=== PATIENT | male | born 1965 | race Caucasian/White ===

== ENCOUNTER 2017-08-21 10:51 | Day surgery (SDC) | payer OTHER, SELFPAY ==
[2017-08-21] VITALS (7 sets, daily range): BP systolic 117–149; BP diastolic 63–76; PULSE 77–88; RESP 16; TEMP 36.3–37.1; O2SAT 93–98; BMI 39.8
--- NOTE | 2017-08-21 10:56 | EKG12_ITS ---
Test Reason : PRE OP Blood Pressure : / mmHG Vent. Rate : 084 BPM Atrial Rate : 084 BPM P-R Int : 136 ms QRS Dur : 094 ms QT Int : 390 ms P-R-T Axes : 042 -01 015 degrees QTc Int : 460 ms Sinus rhythm with Premature atrial complexes Poor R wave progression Confirmed by MAKENZIE POLK, EMILY ([id number]), restaurant expeditor SHANELLE VALDIVIA ([id number]) on 08/23/2017 1:46:08 PM Referred By: Geronimo Townsend Confirmed By:EMILY BANEGAS MD
[2017-08-21 11:18] LABS: Hematocrit 44.6 % (40-54); Hemoglobin 15.3 g/dl (13.0-16.5); Mean Corp Hgb Conc 34.3 g/gl (32-36); Mean Corpuscular Hgb 30.8 pg (27.0-32.0); Mean Corpuscular Volume 89.9 fL (80-94); Mean Platelet Vol. 10.1 fl (6.2-12.0); Platelet Count 184 K/mm3 (150-450); RBC Distribution Width CV 12.3 % (11.6-14.6); RBC Distribution Width SD 39.6 fl (35.1-43.9); Red Blood Count 4.96 M/mm3 (4.6-6.2); Scan Indicated on CBC? Y/N NO
[2017-08-21 11:30] LABS: Anion Gap 9 (5-15); BUN 10 mg/dL (7-18); BUN/Creat Ratio 10.7 RATIO (10-20); Calcium,Total 8.7 mg/dL (8.5-10.1); Chloride 106 mmol/L (98-107); Creatinine, Serum 0.94 mg/dL (0.70-1.30); EST Glomerular Filtration Rate 90 mL/min (>60); Est Glom Filt Rate - Afr Amer 109 mL/min (>60); Glucose 96 mg/dL (74-106); Potassium 3.8 mmol/L (3.5-5.1); Sodium Level 139 mmol/L (136-145)
--- NOTE | 2017-08-21 12:25 | GALL_PTH ---
PATIENT: MARTÍNEZ VALDIVIA LOC: [facility] [place] U#:[id number] AGE/SX: 52/M ROOM: RE08/21/[address]: Dr. Geronimo Townsend MD : [id number] BED: DIS: 08/21/2017 SPEC #: [id number] RECD: 08/21/17 17:31 STATUS: PATRIC UMBERTO #: [id number] RICKEY: 08/21/17 12:[address]: Geronimo Townsend DEPT: SURGICAL PATHOLOGY RECD BY: Manish Baldwin ENTERED: 08/22/17 11:51 SP TYPE: KG BLOOM DR: Geronimo Reyes Tissues: Gallbladder, NOS Procedures: Surgery Specimen Level III HEADER OPERATION: Laparoscopic cholecystectomy with IOC PRE-OP DIAGNOSIS: Cholelithiasis, biliary colic TISSUE SUBMITTED: Gallbladder MICROSCOPIC DIAGNOSIS Gallbladder, cholecystectomy: Chronic cholecystitis and cholelithiasis. AM:debra 08/23/17 MICROSCOPIC DESCRIPTION Slides are reviewed. GROSS DESCRIPTION Received is one container labeled with the patient's name and designated gallbladder. The specimen consists of a gallbladder measuring 10 cm in length and 3 cm in diameter. The external surface is pink-caldwell, smooth and glistening for the most part. Focally it is granular, hemorrhagic and contains cautery artifact. The gallbladder contains green-yellow mucoid bile and one black, ovoid stone measuring 1.5 cm in greatest dimension. The mucosa is bile-stained and without any mass lesions. The gallbladder wall measures up to 0.2 cm in thickness. Nurse Instructor sections from the gallbladder and the cystic duct are submitted in one cassette. / SJ:rg 08/22/17 TC:3 CPT: 20536
[2017-08-21] MEDS: Bupivacaine Mpf 0.5% 30 ML VIAL (12:53)
[2017-08-21] MEDS: Cefazolin 2 GM in 0.9% Normal Saline 100 ML IV (13:35)
--- NOTE | 2017-08-21 13:57 | RAD_ITS ---
STUDY: INTRAOPERATIVE CHOLANGIOGRAM. REASON FOR EXAM: Male, 52 years old. Laparoscopic cholecystectomy. FLUOROSCOPY TIME (if supplied): (10.3 seconds) minutes/seconds TECHNIQUE: An intraoperative cholangiogram was performed by the surgeon. Imaging was submitted. COMPARISON: None. FINDINGS: The visualized intrahepatic biliary ducts are unremarkable. The common bile duct is not dilated. No intraluminal filling defect is seen. There is free flow of contrast into the duodenum. RAD/Cholangiogram/ O R,Initial IMPRESSION: Unremarkable intraoperative cholangiogram. Electronically Signed: Garrett Hollingsworth MD at 15:52 EDT Tel [phone], Service support ,
--- NOTE | 2017-08-21 14:55 | PCM.DC.GB ---
Discharge Diet: Light diet - advance as tolerated Discharge Activity: May Not Drive - for 2-3 days or while taking narcotic pain medications., - - Do not drive, work heavy equipment or sign legal documents for 24 hours. May shower in (days): 1 - with the bandage in place. Additional Activity Instructions:: Pain medication may cause nausea. You should typically eat light foods as you take your pain medications. Pain medication may also cause constipation. If this is a problem for you, please discuss with your doctor. Call your doctor if your incision/area has: Continuous Slow Oozing, Sudden Increased Bleeding, Increased Pain/ Swelling, Increased Redness, Foul Smelling Discharge Call your doctor if you observe: Fever of 101 or Higher Suture Line Care: Avoid Pulling/Pushing, Avoid Pinching/Bending Additional Dressing/Incision Instructions:: Leave operative bandaids on for 2 days. When you remove dressing, leave Steri-Strips on until your follow-up appointment, or until the Steri-Strips fall off on their own. Allergies/Adverse Reactions: Allergies No Known Allergies Allergy (Verified 08/20/17 09:15) Medications to take at Discharge Aspirin [Aspirin, Baby] 81 mg PO DAILY@0800 06/24/15 Atorvastatin Calcium [Lipitor] 20 mg PO DAILY 06/24/15 losartan 25 mg tablet 25 mg PO QDAY 08/16/17 Omeprazole [Prilosec] 20 mg PO PRN PRN 08/20/17 Oxycodone [Oxyir] 5 mg PO Q4H PRN PRN 7 Days #14 tab 08/21/17 The following prescriptions were given: Oxycodone [Oxyir] 5 mg PO Q4H PRN PRN 7 Days #14 tab PRN Reason: Pain Primary Care Physician: Geronimo Reyes [Primary Care Provider] - Please Follow Up With: Geronimo Townsend MD - Please call [phone] to schedule an appointment. When: 7 days after your surgery
--- NOTE | 2017-08-21 14:57 | OP.PCM_ITS ---
Report of Operation Date of Procedure: 08/21/17 Pre-Operative Diagnosis: SYMPTOMATIC CHOLELITHIASIS Post-Operative Diagnosis: SYMPTOMATIC CHOLELITHIASIS, NORMAL IOC Surgery/Procedure Performed:: LAPAROSCOPIC CHOLECYSTECTOMY WITH INTRAOPERATIVE CHOLANGIOGRAM Description of Surgical Findings:: DUCT ENTERS FROM LEFT control equipment electrician: None control equipment electrician: Oksana Henson Type of Anesthesia:: General Anesthesiologist: Fermin Castañeda - ASA3 Specimen's removed: GALLBLADDER Estimated Blood Loss (mL): 25 Fluids Replaced: 1300 Description of Procedure: The patient was brought to the operating suite. Sign in was performed verifying patient, site, position, SCIP antibiotic prophylaxis- 3 gm of Ancef and DVT prophylaxis with SCDs. Following induction of general anesthetic. The patient?s abdomen was prepped and draped in the usual fashion. Timeout was performed verifying patient, site , position. Local anesthetic was injected below the umbilicus. Incision made and dissection carried down to the umbilical root fascia. 2 stay sutures were placed. Incision made in the fascia, the peritoneum entered under direct visualization. A 10 mm Sifuentes trocar was inserted and secured with the stay sutures. Pneumoperitoneum to 15 mmHg was insufflated. Visual inspection revealed adhesions to the gallbladder, but otherwise a normal-appearing gallbladder and normal. Visualized intra-abdominal structures. 3 right upper quadrant 5 ports were placed in the standard position. The gallbladder was grasped retracted upward and outward. Dissection was carried out in Calot?s triangle. When a critical view of the neck of the gallbladder funneling of the cystic duct with no signs of aberrant ductal structures were seen, a clip was placed on the neck of the gallbladder cystic duct junction. A partial ductotomy was made. A Cholangiocath was inserted into the duct and secured with a clip. Intraoperative cholangiogram was performed demonstrating filling of the cystic duct filling the common bile duct and emptying into the duodenum without signs of obstruction area and the clip and catheter were removed. 2 clips placed on the cystic duct and the cystic duct divided. Dissection was continued until the cystic artery was clearly dissected and identified. The artery was then doubly clipped proximally singly clipped distally and divided. The gallbladder was then dissected free from the gallbladder fossa using electrocautery. The gallbladder was placed in an Endobag and removed through the umbilical port site. An 0 PDS etceop-qv-[id number] suture was placed around the umbilical port site defect. Pneumoperitoneum was reestablished. The gallbladder fossa was checked for hemostasis. With good hemostasis, the area was irrigated and aspirated to clear. 5 ports were removed under direct visualization with no signs of bleeding. Pneumoperitoneum was released. The Sifuentes trocar was removed. The umbilical fascial suture was secured area did skin was closed with interrupted 4 -0 Monocryl subcuticular sutures. Steri-Strips and bandages were applied. The patient was brought to recovery room in stable condition. - Admit VTE Documentation VTE Present on Admission: No VTE Mechan Device Prophylaxis: SCD's VTE Pharm Prophylaxis ordered?: No
== END 2017-08-21 17:43 | disposition home or self-care (01) ==
LOC: SDC 10:52 → AC 10:53
PROVIDERS: Family Provider Nurse Practitioner Family; PCP Nurse Practitioner Family; Visit Provider Surgery
PROC: (CPT 47610; principal; 2017-08-21 12:05)
DX: K80.10 Calculus of gallbladder with chronic cholecystitis without obstruction (principal); E78.00 Pure hypercholesterolemia, unspecified; I10 Essential (primary) hypertension; K21.9 Gastro-esophageal reflux disease without esophagitis; K58.9 Irritable bowel syndrome, unspecified; Z87.19 Personal history of other diseases of the digestive system; Z86.79 Personal history of other diseases of the circulatory system; Z87.891 Personal history of nicotine dependence; Z79.82 Long term (current) use of aspirin; Z79.899 Other long term (current) drug therapy
CPT/HCPCS: 47563; 74300; 76000; 80048; 85027; 88304; 93005; J7120; J2405

== ENCOUNTER → 2022-10-17 | Outpatient (CLI) | payer SELFPAY ==
--- NOTE | 2022-10-17 07:18 | CT_ITS ---
STUDY: CT CHEST WITHOUT CONTRAST REASON FOR EXAM: Male, 57 years old. HTN RADIATION DOSAGE (If Supplied By Facility): CTDIvol = ( 12.19 ) mGy, DLP = ( 195.04 ) mGycm TECHNIQUE: Transaxial imaging was performed without the administration of intravenous contrast material. Cardiac over read examination. Individualized dose optimization techniques were used for this CT. COMPARISON: No relevant priors. FINDINGS: CHEST The lungs are normal. There is no demonstrated pleural abnormality. There are calcifications of the coronary arteries. There are multiple small lymph nodes within the mediastinum, which are normal in size and morphology most compatible with reactive lymph hyperplasia. Normal hilar regions. Normal unenhanced pulmonary arteries. Normal aorta arch and descending thoracic aorta. There are degenerative changes of the thoracic spine. Diffuse fatty infiltration of the liver. Small hiatal hernia. CT/Limited Chest CT Cardiac Only IMPRESSION: Coronary artery calcification. Diffuse fatty infiltration of the liver. Electronically Signed: Garrett Hollingsworth MD at 8:40 EDT ,
--- NOTE | 2022-10-17 13:16 | CA.SCORE ---
Calcium Scoring Date of Study:: 10/17/22 Indications Indications: Family history and hypertension Coronary Calcium Scoring: High-resolution Computed Tomographic imaging of the chest was performed on [10/17/22 ], with particular attention paid to the coronary arteries. Images from the examination were analyzed for the presence and extent of coronary artery calcification , using coronary calcium quantification software. The patient tolerated the procedure well and there were no complications. The results of the coronary calcification analysis are provided below. Findings Coronary Artery Left Main (LM): 203 Left Anterior Descending (LAD): 134 Left Circumflex (LCX): 61 Right Coronary Artery (RCA): 4.77 Total Agatston Score: 402.77 Percentile Rankin-90% Calcium Scoring Interpretation: Different methods to categorize the overall amount of coronary plaque. Overall amount CAC SIS Visual of coronary plaque P1 Mild -100 <2 1-2 vessels with mild amount of plaque P2 Moderate 101-300 3-4 1-2 vessels with moderate amount, 3 vessels with mild amount of plaque P3 Severe 301-999 5-7 3 vessels with moderate amount, 1 vessel with severe amount of plaque P4 Extensive >1000 >8 2-3 vessels with severe amount of plaque Calcium Score: Severe: 3 vessels w/moderate amount, 1 vessel w/severe amt of plaque Conclusion: Probably moderate amount of atherosclerotic plaquing.
== END | disposition home or self-care (01) ==
LOC: CT 07:15
PROVIDERS: PCP Nurse Practitioner Family; Referring Provider Internal Medicine Cardiovascular Disease; Visit Provider Internal Medicine Cardiovascular Disease
DX: E78.00 Pure hypercholesterolemia, unspecified (principal)
CPT/HCPCS: 75571; 76380

== ENCOUNTER → 2022-11-12 | Outpatient (CLI) | payer OTHER, SELFPAY ==
--- NOTE | 2022-11-12 10:09 | STRESSREP ---
Stress Test Report Pharmacologic myocardial perfusion stress test. 57-year-old man with a history of elevated calcium score Resting EKG demonstrates sinus rhythm with a rate of 83 bpm. Resting blood pressure is 152/84 mmHg. 0.4 mg of regadenoson was infused per usual protocol followed by rapid intravenous saline flush injection. Continuous EKG monitoring was performed. The maximum heart rate was 107 bpm which was 65% of max impacted heart rate the maximum workload was 1 metabolic equivalent. At rest there were no ST or T wave changes noted to suggest ischemia and at peak infusion nonspecific ST changes were noted which did not meet the criteria for ischemia. No clinical angina is noted. The final blood pressure was 148/80 mmHg. Myocardial perfusion protocol. 14.7 mCi of technetium 99m sestamibi was injected at rest. 0.4 mg of regadenoson was infused per usual protocol. At peak infusion 44.8 mCi of technetium 99m sestamibi was injected stress images were obtained stress and rest images were reconstructed and compared in the short axis vertical long and horizontal long axis. Gated images were also obtained. Perfusion SPECT analysis: Review of the stress images demonstrate normal uptake of tracer noted in all areas of the myocardium. The resting images similar demonstrated normal uptake of tracer noted in all areas of the myocardium. No areas of reversibility are noted to suggest ischemia and no previous infarct is noted. Gated SPECT analysis: The gated ejection fraction is 70%. Conclusion: Normal pharmacologic myocardial perfusion stress test. Preserved ejection fraction.
== END | disposition home or self-care (01) ==
LOC: CVS 06:11
PROVIDERS: PCP Nurse Practitioner Family; Referring Provider Internal Medicine Cardiovascular Disease; Visit Provider Internal Medicine Cardiovascular Disease
DX: R93.1 Abnormal findings on diagnostic imaging of heart and coronary circulation (principal); I47.1 Supraventricular tachycardia; E78.00 Pure hypercholesterolemia, unspecified; I10 Essential (primary) hypertension
CPT/HCPCS: 78452; 93017; A9500; A4216; J2785

== ENCOUNTER 2024-10-08 19:43 | Observation (INO) | payer OTHER, SELFPAY ==
[2024-10-08 19:43] VITALS: BP 164/88; PULSE 97; RESP 18; TEMP 36.8; O2SAT 98; BMI 36.1
--- NOTE | 2024-10-08 19:59 | EX.ED.DYSGE1 ---
HPI <BRETT De Anda - Last Filed: 10/08/24 21:59> History of Present Illness Chief Complaint: Abd Pain Narrative Narrative: 59-year-old male with PMH of HTN, HLD, AAA presents with epigastric pain that started last night. He had a cramping sensation in the epigastric and right upper quadrant last night while working in his garage. He had dinner and then ate some Fritos as a bedtime snack. He went to bed around 10 PM and the epigastric pain woke him up at 12:30 AM with acid reflux. He had a sour taste in his mouth but did not vomit. He has had intermittent abdominal pain throughout the day which was on the left side in the morning but is now again focused on the right upper abdomen. His friend told him that when he had abdominal pain it was an aorta problem and the patient started to become worried because he has a 4.0 cm AAA that was incidentally found on imaging in the past. He had an ultrasound a year ago and it was 4.3 cm and he is due to have another ultrasound. Abdominal surgeries include umbilical hernia repair and cholecystectomy. PFSH <BRETT De Anda - Last Filed: 10/08/24 21:59> [facility] Medical History (Updated 10/08/24 @ 21:45 by BRETT De Anda) Obesity Essential (primary) hypertension GERD (gastroesophageal reflux disease) Premature atrial contractions Hyperlipidemia Supraventricular tachycardia Home Medications ?Medication ?Instructions ?Recorded ?Last Taken ?Type aspirin 81 mg chewable tablet 81 mg PO DAILY@0800 06/24/15 08/20/17 History amlodipine 5 mg tablet 5 mg PO QHS 08/09/20 Unknown History hydrochlorothiazide 12.5 mg tablet 12.5 mg PO DAILY 09/06/22 Unknown History losartan 100 mg tablet 100 mg PO DAILY 09/06/22 Unknown History rosuvastatin 20 mg tablet 20 mg PO QDAY 08/16/23 Unknown History Allergy/AdvReac Type Severity Reaction Status Date / Time No Known Allergies Allergy Verified 10/08/24 19:45 Family History Father , Age 54 of CAD (ID age 49) Myocardial infarction CAD (coronary artery disease), Onset Age: 49 CABG Brother CAD (coronary artery disease), Onset Age: 49 Stented coronary artery Surgical History History of cardiac radiofrequency ablation (RFA) (05/25/16) History of left heart catheterization (06/27/15) Social History Smoking Status: Former smoker how long ago did patient quit smokin alcohol intake: current alcohol intake frequency: a few times a week Alcohol type: beer substance use type: does not use caffeine: Yes Type: carbonated beverages what type of physical activity do you participate in: none seatbelt use: always do you feel safe at home: Yes ROS <BRETT De Anda - Last Filed: 10/08/24 21:59> ROS ED ROS Narrative Constitutional: Negative for fever, chills, malaise. CVS: Negative for pchest pain, syncope. Respiratory: Negative for shortness of breath, cough. GI: Positive for abdominal pain, nausea. Negative for vomiting, diarrhea, constipation, melena, hematochezia. : Negative for dysuria, hematuria or frequency. EXAM <BRETT De Anda - Last Filed: 10/08/24 21:59> Physical Exam Narrative Exam Narrative: CONST: Patient sitting in no acute distress. EYES: Normal inspection. NECK: Normal inspection. RESP: No respiratory distress, CTAB. CVS: Regular rate and rhythm, no murmur, no gallop. ABD: Soft with minimal epigastric tenderness, mildly distended, no guarding or rebound, nondistended, no hepatosplenomegaly. No pulsatile mass. SKIN: Color normal, no rash, warm, dry, intact. EXTREMITIES: Normal appearance, no pedal edema. NEURO: Alert and answering questions appropriately. PSYCH: Normal affect. Const Vital Signs: 10/08/24 19:43 10/08/24 21:14 Temperature 98.3 F Temperature Source Oral Pulse Rate 97 78 Respiratory Rate 18 15 Blood Pressure 164/88 H 140/71 H Blood Pressure Mean 113 94 Pulse Ox 98 97 Oxygen Delivery Method Room Air Room Air <Dr. Vinny Hernandez MD - Last Filed: 10/08/24 21:23> Physical Exam Const Vital Signs: 10/08/24 19:43 10/08/24 21:14 Temperature 98.3 F Temperature Source Oral Pulse Rate 97 78 Respiratory Rate 18 15 Blood Pressure 164/88 H 140/71 H Blood Pressure Mean 113 94 Pulse Ox 98 97 Oxygen Delivery Method Room Air Room Air [facility] <BRETT De Anda - Last Filed: 10/08/24 21:59> [facility] Narrative Medical decision making narrative: 59-year-old male presents with upper abdominal pain and some nausea and acid reflux that started last night. He appears well and nontoxic. Vital signs show hypertension, otherwise normal. He has a normal cardiopulmonary exam. Abdomen is soft with mild epigastric tenderness. No peritoneal signs. Differential includes but not limited to GERD, choledocholithiasis, pancreatitis, aortic dissection felt to be less likely. CT shows mildly dilated and thickened small bowel loops along the central left hemiabdomen concerning for enteritis with superimposed ileus/partial obstruction which may relate to a small umbilical hernia. I do not think he has enteritis as he has no vomiting or diarrhea. He has a history of umbilical hernia repair with mesh by Dr. Townsend. I cannot feel a hernia on exam. I will notify surgery to follow a long and at this point this point he is nonsurgical. I will discuss the case with the hospitalist for admission. I have personally performed a face to face assessment of the patient and have reviewed the [facility] Note. I performed a substantive portion of the visit including all aspects of the following. My chan findings include: History is [59-year-old male with abdominal pain last 2 days. Had 3 bowel movements today. No dysuria. No fever. Known history of a AAA that they are observing. Prior cholecystectomy. Denies any fever. No vomiting. No abdominal trauma. No back pain.] Exam is [well-appearing middle-aged male. Vital signs stable afebrile. H EENT exam pupils round react light. Moist mucous members. Lungs clear. Heart regular rhythm rate about 90 no murmur. Chest wall and ribs nontender. Abdomen soft mildly distended diffusely but only mildly tender. No peritoneal signs. No hernia or mass. No palpable pulsatile mass. No bruising. No right lower quadrant pain. Moving all 4 extremities. Nontender. No edema. Back nontender. Neurologically is awake alert.] Medical Decision Making [59-year-old male with abdominal pain with cramping. Has a known AAA. CAT scan and labs are being obtained. Differential would include AAA rupture, bowel obstruction, appendicitis with I think is less likely. Versus many other etiologies.] Other additions or changes: [None] Lab Data Labs: Laboratory Results - last 24 hr 10/08/24 20:13 Sodium 135 Potassium 3.6 Chloride 99 Carbon Dioxide 21.1 Anion Gap 15 BUN 11 Creatinine 0.85 Estim Creat Clear Calc 123.50 Est GFR (MDRD) Non-Af 101 BUN/Creatinine Ratio 13.2 Glucose 118 H Calcium 9.2 Total Bilirubin 1.39 H AST 27 ALT 26 Alkaline Phosphatase 95 Total Protein 6.8 Albumin 4.2 Globulin 2.6 Albumin/Globulin Ratio 1.6 Lipase 13 Radiography Diagnostic Testing: Clinical Impression(s) from Imaging Studies Abdomen/Pelvis CT 10/08/24 20:25 IMPRESSION: 1. Mildly dilated thickened small bowel loops along the central and left hemiabdomen concerning for infectious/inflammatory enteritis with superimposed ileus/partial obstruction which may relate in part to a small umbilical hernia. See comments above. 2. Abdominal aortic aneurysm measuring up to 3.9 cm. 3. Hepatic steatosis. Reading Location: [facility] <Dr. Vinny Hernandez MD - Last Filed: 10/08/24 21:23> MDM MDM Narrative Medical decision making narrative: I have personally performed a face to face assessment of the patient and have reviewed the [facility] Note. I performed a substantive portion of the visit including all aspects of the following. My chan findings include: History is [59-year-old male with abdominal pain last 2 days. Had 3 bowel movements today. No dysuria. No fever. Known history of a AAA that they are observing. Prior cholecystectomy. Denies any fever. No vomiting. No abdominal trauma. No back pain.] Exam is [well-appearing middle-aged male. Vital signs stable afebrile. H EENT exam pupils round react light. Moist mucous members. Lungs clear. Heart regular rhythm rate about 90 no murmur. Chest wall and ribs nontender. Abdomen soft mildly distended diffusely but only mildly tender. No peritoneal signs. No hernia or mass. No palpable pulsatile mass. No bruising. No right lower quadrant pain. Moving all 4 extremities. Nontender. No edema. Back nontender. Neurologically is awake alert.] Medical Decision Making [59-year-old male with abdominal pain with cramping. Has a known AAA. CAT scan and labs are being obtained. Differential would include AAA rupture, bowel obstruction, appendicitis with I think is less likely. Versus many other etiologies.] Other additions or changes: [None] History & Record Review Discussion w/independent historian: Patient Additional record(s) reviewed:: Prior inpatient record, Prior outpatient record, Prior ED visit and Prior labs Lab Data Attestation: I reviewed the patient's lab results. Lab results narrative: Chemistries show gap 15. Normal BUN and creatinine. Glucose 118. Liver enzymes unremarkable. Total bilirubin 1.39. Lipase normal at 13. Labs: Laboratory Results - last 24 hr 10/08/24 20:13 Sodium 135 Potassium 3.6 Chloride 99 Carbon Dioxide 21.1 Anion Gap 15 BUN 11 Creatinine 0.85 Estim Creat Clear Calc 123.50 Est GFR (MDRD) Non-Af 101 BUN/Creatinine Ratio 13.2 Glucose 118 H Calcium 9.2 Total Bilirubin 1.39 H AST 27 ALT 26 Alkaline Phosphatase 95 Total Protein 6.8 Albumin 4.2 Globulin 2.6 Albumin/Globulin Ratio 1.6 Lipase 13 Radiography Diagnostic Testing: Clinical Impression(s) from Imaging Studies Abdomen/Pelvis CT 10/08/24 20:25 IMPRESSION: 1. Mildly dilated thickened small bowel loops along the central and left hemiabdomen concerning for infectious/inflammatory enteritis with superimposed ileus/partial obstruction which may relate in part to a small umbilical hernia. See comments above. 2. Abdominal aortic aneurysm measuring up to 3.9 cm. 3. Hepatic steatosis. Reading Location: [facility] Discharge Plan Dx/Rx/DC Orders Clinical Impression: Partial small bowel obstruction, Abdominal pain Disposition Disposition: Acute Care Hospital [facility]
--- NOTE | 2024-10-08 20:25 | CT_ITS ---
PROCEDURE: ABDOMEN/PELVIS W IV CONT ONLY 10/08/2024 REASON FOR EXAM: Pain TECHNIQUE: Abdomen and pelvis CT with intravenous contrast. Coronal and Sagittal reconstruction series were provided. One or more dose reduction techniques were used (e.g., Automated exposure control, adjustment of the mA and/or kV according to patient size, use of iterative reconstruction technique. COMPARISON: None FINDINGS: Lung bases are clear. Hepatic steatosis. Spleen, pancreas and adrenal glands are intact. Gallbladder is not visualized. No significant biliary ductal dilation. Kidneys enhance symmetrically. No suspicious renal mass, calculi or hydronephrosis. Urinary bladder is intact. Several dilated, moderately thickened small bowel loops with prominence of the supplying vasa recta along the central and left hemiabdomen concerning for infectious/inflammatory enteritis. Superimposed ileus/partial obstruction suspected. A couple of these bowel loops appear tethered to a small umbilical hernia which contains a tiny amount of fluid. Gas and stool throughout the colon. No pelvic free fluid. No free air or pneumatosis. Abdominal aortic aneurysm measuring up to 3.9 cm. No suspicious adenopathy. Small bilateral fat containing inguinal hernias. No acute osseous abnormality. Degenerative changes of the spine. Mild dextroscoliosis. CT/Abdomen/Pelvis W IV Cont ONLY IMPRESSION: 1. Mildly dilated thickened small bowel loops along the central and left hemiab domen concerning for infectious/inflammatory enteritis with superimposed ileus/partial obstruction which may relate in part to a small umbilical hernia. See comments above. 2. Abdominal aortic aneurysm measuring up to 3.9 cm. 3. Hepatic steatosis. Reading Location: [facility]
[2024-10-08 20:27] LABS: Absolute Lymphocyte Count 1.53 X10^3/uL (0.83-4.51); Absolute Neutrophil Count 6.6 X10^3/uL (2.0-7.7); Basophil# 0.04 X10^3/uL; Basophil% 0.4 % (0-1); Eosinophil# 0.24 X10^3/uL; Eosinophils% 2.6 % (0-5); Hematocrit 45.7 % (40-54); Hemoglobin 15.8 g/dL (13.0-16.5); Lymphocyte # 1.53 X10^3/ul (0.83-4.51); Lymphocyte % 16.4 % (19-41); Mean Corp Hgb Conc 34.6 g/dL (32-36); Mean Corpuscular Hgb 30.8 pg (27.0-32.0); Mean Corpuscular Volume 89.1 fL (80-94); Mean Platelet Vol. 9.8 fl (6.2-12.0); Monocyte# 0.94 X10^3/uL; Monocyte% 10.1 % (0-10); NRBC Flagged by Analyzer 0 % (0-5); Neutrophil # 6.55 X10^3/uL (2.7-7.7); Neutrophil % 70.1 % (47-70); POSITIVE COUNT YES; Platelet Count 165 K/mm3 (150-450); RBC Distribution Width CV 12.2 % (11.6-14.6); RBC Distribution Width SD 40.2 fl (35.1-43.9); Red Blood Count 5.13 M/mm3 (4.6-6.2); White Blood Count 9.3 K/mm3 (4.4-11.0)
[2024-10-08] MEDS: Famotidine 200 MG/20 ML MDV 20 MG in 0.9% Normal Saline (Pres. free 8 ML 300 MG IV (20:32)
[2024-10-08 21:07] LABS: Lipase 13 U/L (13-75)
[2024-10-08 21:09] LABS: ALB/GLOB Ratio 1.6 RATIO (0.9-2.4); AST(SGOT) 27 U/L (<=37); Alanine Aminotransfer ALT/SGPT 26 U/L (<=46); Albumin, Serum 4.2 g/dL (3.5-5.0); Alkaline Phosphatase 95 U/L (40-129); Anion Gap 15 (5-15); BUN 11 mg/dL (4-19); BUN/Creat Ratio 13.2 RATIO (10-20); Calcium,Total 9.2 mg/dL (7.6-11.0); Carbon Dioxide 21.1 mmol/L (21.0-32.0); Chloride 99 mmol/L (98-108); Creatinine, Serum 0.85 mg/dL (0.70-1.20); EST Glomerular Filtration Rate 101 (>60); Globulin 2.6 g/dL (2.2-4.2); Glucose 118 mg/dL (70-99); Potassium 3.6 mmol/L (3.3-5.1); Protein, Total 6.8 g/dL (5.9-8.4); Sodium Level 135 mmol/L (133-145); Total Bilirubin 1.39 mg/dL (0.00-1.30)
[2024-10-08 21:14] VITALS: BP 140/71; PULSE 78; RESP 15; O2SAT 97
--- NOTE | 2024-10-08 22:04 | HP.PCM.HOS_ITS ---
HPI - General General Date of Admission: 10/08/24 Date of Service: 10/08/24 Chief Complaint: Abdominal pain, nausea without emesis. HPI Narrative The patient is a 59 y/o M w/ PMHx: Obesity, HTN, HLD, Hx SVT s/p RFA, AAA (4.3 cm on most recent US, current presentation with CT measurement up to 3.9 cm), Former tobacco use, GERD who presents to the [facility] ED on 10/08/24 with history of onset epigastric discomfort and cramping as well as into the right upper quadrant starting the evening prior while he was working in his garage however he was able to eat dinner as well as some snacks and went to bed at approximately 10 PM unfortunately awakening at 1230 with severe reflux and a sour taste in his mouth with nausea but no emesis with ongoing intermittent abdominal pain in the same region throughout the day however it seems to have worsened and has become more prominent in the right upper abdomen and given his history of AAA to be cautious presented to the ED for evaluation. In the ED he notes the discomfort is very focal and primarily more cramping-like sensation which is now ramping up and currently 5-6 out of 10 in severity. He does report chronic issues with some constipation and loose stools and these bowel patterns are unchanged with last bowel movement earlier this morning. He does report passing a little bit of flatus approximately 15 minutes prior to my evaluation but it was not marked. He states he feels like he needs to pass a lot of gas. In the ED work-up included T90.3, heart rate 97, BP 164/88, respiratory rate 18, 98% on room air with most recent repeat vitals with heart rate 78, BP 140/71, respiratory rate 15, 97% on room air, CBC pending upon requested evaluation of patient, CMP not marked appearing aside glucose 118, T. bili 1.39 otherwise normal hepatic profile, CT abdomen and pelvis with mildly dilated thickened small bowel loops along the central left hemiabdomen concerning for infectious/inflammatory enteritis with superimposed ileus/partial obstruction passive related to a small umbilical hernia, abdominal aortic aneurysm measuring up to 3.9 cm, hepatic steatosis. In the ED patient ministered IV famotidine. ED discussed case with general surgeon on-call Dr. Medina. [facility] Medical History AAA (abdominal aortic aneurysm) Obesity Essential (primary) hypertension GERD (gastroesophageal reflux disease) Premature atrial contractions Hyperlipidemia Supraventricular tachycardia Home Medications ?Medication ?Instructions ?Recorded ?Last Taken ?Type aspirin 81 mg chewable tablet 81 mg PO DAILY@0800 06/0608/20/17 History amlodipine 5 mg tablet 5 mg PO QHS 08/09/20 Unknown History hydrochlorothiazide 12.5 mg tablet 12.5 mg PO DAILY Unknown History losartan 100 mg tablet 100 mg PO DAILY 09/06/22 Unk nown History rosuvastatin 20 mg tablet 20 mg PO QDAY 08/16/23 Unkno wn History Allergy/AdvReac Type Severity Reaction Status Date / Time No Known Allergies Allergy Verified 10/08/24 19:45 Family History (Updated 10/08/24 @ 22:[address] Ro Hernandez MD) Father , Age 54 of CAD ([place] age 49) Myocardial infarction CAD (coronary artery disease), Onset Age: 49 CABG Brother CAD (coronary artery disease), Onset Age: 49 Stented coronary artery Mother Alzheimer's dementia Surgical History History of cholecystectomy History of umbilical hernia repair History of cardiac radiofrequency ablation (RFA) (05/25/16) History of left heart catheterization (06/27/15) Social History (Updated 10/08/24 @ 22:[address] Ro Hernandez MD) household members: none Smoking Status: Former smoker how long ago did patient quit smokin alcohol intake: current alcohol intake frequency: a few times a week Alcohol type: beer substance use type: does not use caffeine: Yes Type: carbonated beverages what type of physical activity do you participate in: none seatbelt use: always do you feel safe at home: Yes ROS ROS Narrative Admission Review of Systems: CONSTITUTIONAL: No weight loss, fever, chills, + weakness or fatigue. HEENT: Eyes: No visual loss, blurred vision, double vision or yellow sclerae. Ears, Nose, Throat: No hearing loss, sneezing, congestion, runny nose or sore throat. SKIN: No rash or itching, lesions, wounds. CARDIOVASCULAR: No chest pain, chest pressure or chest discomfort, palpitations, edema, orthopnea, syncopal events. RESPIRATORY: No shortness of breath, cough or sputum, wheezing, hemoptysis. GASTROINTESTINAL: + anorexia, nausea, abdominal cramping, stable unchanged bowel pattern of mildly loose with intermittent constipation. No emesis,, melena, BRBPR. GENITOURINARY: No dysuria, frequency, urgency or retention. NEUROLOGICAL: No headache, dizziness, syncope, paralysis, ataxia, numbness or tingling in the extremities, focal weakness, change in bowel or bladder control, seizure. MUSCULOSKELETAL: + muscle, back pain, joint pain or stiffness. HEMATOLOGIC: No anemia, bleeding or bruising. LYMPHATICS: No enlarged nodes. No history of splenectomy. PSYCHIATRIC: No history of depression or anxiety. ENDOCRINOLOGIC: No reports of sweating, cold or heat intolerance. No polyuria or polydipsia. ALLERGIES: No history of asthma, hives, eczema or rhinitis. Vital Signs Vital Signs Vital Signs: 10/08/24 19:43 10/08/24 21:14 Temperature 98.3 F Temperature Source Oral Pulse Rate 97 78 Respiratory Rate 18 15 Blood Pressure 164/88 H 140/71 H Blood Pressure Mean 113 94 Pulse Ox 98 97 Oxygen Delivery Method Room Air Room Air Weight Weight: 259 lb Body Mass Index (BMI) 36.1 Physical Exam Narrative Physical Examination: General: Awake, alert, oriented x 3 and cooperative, laying on his side in ED bed, fatigued, uncomfortable appearing Skin: Normal color, normal turgor, no icterus, no cyanosis except occasional stage ecchymoses, abrasion. HEENT: AT/NC, EOMI, PERRLA, moderately dry MM, no carotid bruits, difficult to discern JVD given thickened neck. Lungs: CTA bilaterally, moderate effort, mild decrease BL bases, no rales, ronchi or wheezing. Heart: Regular rate and rhythm; no gallop, rub audible. Abdomen: Soft, mild tenderness to palpation primarily in the periumbilical region with no rebound or guarding, moderately distended, mildly tympanitic, decreased bowel sounds, no obvious HSM. Extremities: No cyanosis, clubbing, or edema. Neurological: Patient awake, alert, oriented as no, cognitive function intact; pupils equally reactive to light and accommodation, cranial nerves grossly normal, moving all 4 extremities, no focal deficits, strength moderately to severely globally decreased secondary to acute presentation complaints. Psychiatric: Affect appears fatigued, uncomfortable, no acute evidence of depressive or anxiety feelings. Results Lab / Micro Data 10/08/24 20:13 10/08/24 20:13 Labs: Laboratory Results - last 24 hr 10/08/24 20:13: Sodium 135, Potassium 3.6, Chloride 99, Carbon Dioxide 21.1, Anion Gap 15, BUN 11, Creatinine 0.85, Estim Creat Clear Calc 123.50, Est GFR (MDRD) Non-Af 101, BUN/Creatinine Ratio 13.2, Glucose 118 H, Calcium 9.2, Total Bilirubin 1.39 H, AST 27, ALT 26, Alkaline Phosphatase 95, Total Protein 6.8, Albumin 4.2, Globulin 2.6, Albumin/Globulin Ratio 1.6, Lipase 13 Imaging Radiology Impression Abdomen/Pelvis CT 10/08/24 20:25 IMPRESSION: 1. Mildly dilated thickened small bowel loops along the central and left hemiabdomen concerning for infectious/inflammatory enteritis with superimposed ileus/partial obstruction which may relate in part to a small umbilical hernia. See comments above. 2. Abdominal aortic aneurysm measuring up to 3.9 cm. 3. Hepatic steatosis. Reading Location: [facility] Assessment & Plan Assessment/Plan (1) Partial small bowel obstruction: PLAN: Plan The patient is a 59 y/o M w/ PMHx: Obesity, HTN, HLD, Hx SVT s/p RFA, AAA (4.3 cm on most recent US, current presentation with CT measurement up to 3.9 cm), Former tobacco use, GERD who presents to the [facility] ED on 10/08/24 with history of onset epigastric discomfort and cramping as well as into the right upper quadrant starting the evening prior while he was working in his garage however he was able to eat dinner as well as some snacks and went to bed at approximately 10 PM unfortunately awakening at 1230 with severe reflux and a sour taste in his mouth with nausea but no emesis with ongoing intermittent abdominal pain in the same region throughout the day however it seems to have worsened and has become more prominent in the right upper abdomen and given his history of AAA to be cautious presented to the ED for evaluation. #1. Abdominal pain, nausea without emesis with concern for pSBO possibly related in part to a small umbilical hernia but uncertain: CT abdomen pelvis with mildly dilated thickened small bowel loops along the central left hemiabdomen concerning for infectious/inflammatory enteritis with superimposed ileus/partial obstruction passive related to a small umbilical hernia, abdominal aortic aneurysm measuring up to 3.9 cm, hepatic steatosis. Will admit to medical surgical floor, maintain on IVFs, given no intractable nausea or emesis will defer NG tube but defer to surgery discretion for placement if preferred, strict I&Os, IV pain/anti-emetics PRN, serial KUB as needed to montior bowel function, IV PPI, maintain NPO on bowel rest. General surgery consulted and following. #2. Hypertension: Will temporally hold losartan and hydrochlorothiazide as well as amlodipine given #1, add back once oral intake appropriate, as needed IV hydralazine in interim. #3. Hyperlipidemia: Will temporally hold statin therapy given #1, add back once oral intake appropriate. #4. AAA: Reported per patient, most recent ultrasound within the past year with size 4.3 cm with current presentation with abdominal aortic aneurysm measuring 3.9 cm, encourage continued follow-up outpatient with vascular surgery. #5. History SVT: Status post RFA, no persistent symptomology, recent cardiology visit on day of presentation without concerns noted upon visit note reviewed. Noted cardiac catheterization 2015 w/ essentially normal coronary arteries and preserved left ventricular ejection fraction. #6. Obesity: Weight loss and lifestyle changes encouraged. #7. GERD: Will maintain IV PPI. #8. Former tobacco use: Encourage continued tobacco cessation. #9. DVT prophylaxis: Lovenox. Charges/Coding Visit Charges Inpatient E&M: 92317 Init Hosp L3
[2024-10-08 22:33] VITALS: BP 136/52; PULSE 78; RESP 16; O2SAT 95
--- OUTSIDE RECORDS SUMMARY | 2024-10-08 22:35 | XMS RPT_ITS | CCD ---
Demographics Address [address] [place] [address] [address] [place] [address] Home Phone Preferred Language en Marital Status Single Sikhism Affiliation Unknown Race White Ethnic Group Not or Lati no Author Organization [facility] Informat ion Partnership [facility] Care Team Providers Care Locomotive Boilermaker Name Role Phone Lida HOLLAND, Linda Diaz Unavailable Unavailable AMY SLITTER SCORER - LONG WALL MINING MACHINE TENDER, ARCHANA Mares Primary Care Phys ician Amy CUT OUT OPERATOR, CUT OUT OPERATOR-C Archana Leiva Primary Care Pr ovider Amy CUT OUT OPERATOR, CUT OUT OPERATOR-C Archana Leiva Referring Provi laura Dr. Christopher Wells Attending Provider [phone] Christopher Wells Referring Provider [phone] Christopher Wells Other Provider Amy CUT OUT OPERATOR, Archana Leiva Primary Care Unav ailable Amy CUT OUT OPERATOR, Archana Leiva Referring Unav ailable Priscilla, [place] Attending Unavailable Amy CUT OUT OPERATOR, Archana Leiva Primary Care Unav ailable Priscilla, [place] Attending Unavailable Priscilla, Christopher Referring Unavailable Priscilla, Christopher Consulting Unavailable Priscilla, Christopher Attending Unavailable [place] CUT OUT OPERATOR, Archana Leiva Primary Care Unav ailable Priscilla, [place] Referring Unavailable Priscilla, [place] Consulting Unavailable Priscilla, Christopher Attending Unavailable Amy CUT OUT OPERATOR, Archana Leiva Referring Unav ailable [place] CUT OUT OPERATOR, Archana Leiva Primary Care Unav ailable Priscilla, [place] Attending Unavailable Priscilla, [place] Referring Unavailable Amy CUT OUT OPERATOR, Archana Leiva Primary Care Unav ailable [place] CUT OUT OPERATOR, Archana Leiva Primary Care Unav ailable Priscilla, [place] Attending Unavailable Priscilla, [place] Referring Unavailable Amy CUT OUT OPERATOR, Archana Leiva Primary Care Unav ailable Priscilla, Christopher Attending Unavailable Priscilla, Christopher Referring Unavailable AMY SLITTER SCORER - LONG WALL MINING MACHINE TENDER, ARCHANA Mares Primary Care U navailable ALEX WILDE DO Attending Unavailable AMY SLITTER SCORER - LONG WALL MINING MACHINE TENDER, ARCHANA Mares Attending U navailable AMY SLITTER SCORER - LONG WALL MINING MACHINE TENDER, ARCHANA Mares Primary Care U navailable AMY SLITTER SCORER - LONG WALL MINING MACHINE TENDER, ARCHANA Mares Primary Care U navailable AMY SLITTER SCORER - LONG WALL MINING MACHINE TENDER, ARCHANA Mares Attending U navailable AMY SLITTER SCORER - LONG WALL MINING MACHINE TENDER, ARCHANA Mares Primary Care U navailable AMY SLITTER SCORER - LONG WALL MINING MACHINE TENDER, ARCHANA Mares Attending U navailable AMY SLITTER SCORER - LONG WALL MINING MACHINE TENDER, ARCHANA Mares Primary Care U navailable AMY SLITTER SCORER - LONG WALL MINING MACHINE TENDER, ARCHANA Mares Attending U navailable AMY SLITTER SCORER - LONG WALL MINING MACHINE TENDER, ARCHANA Mares Attending U navailable AMY SLITTER SCORER - LONG WALL MINING MACHINE TENDER, ARCHANA Mares Primary Care U navailable Medications Current Medications Medication Drug Class(es) Dates Sig (Normalized) Sig (Original) amLODIPine 5 mg oral tablet (14 sources) Dihydropyridine Calcium Channel Sondra Start: 12-27-2023 Norvasc 5 mg oral tablet Dose : 5 mg = 1 tab(s), Oral, qDay, # 90 tab(s), 1 Refill(s), Pharmacy: [facility], HTN, goal below 140/90, 176.5, cm, 01/14/24 6:56:00 EDT, Height, kg, 01/14/24 6:56:00 EDT, Dosing Weight Start Date: 01/14/24 Status: Ordered Start: 07-15-2023 Norvasc 5 mg o ral tablet Dose : 5 mg = 1 tab(s), Oral, qDay, # 90 tab(s), 1 Refill(s), Pharmacy: [facility], HTN, goal below 140/90, 177, cm, 07/15/23 7:14:00 EDT, Height, kg, 07/15/23 7:14:00 EDT, Dosing Weight Start Date: 07/15/23 Status: Ordered Start: 01-01-2023 Norvasc 5 mg o ral tablet Dose : 5 mg = 1 tab(s), Oral, qDay, # 90 tab(s), 1 Refill(s), Pharmacy: [facility], HTN, goal below 140/90, 176.5, cm, 01/01/23 7:19:00 EDT, Height, kg, 01/01/23 7:19:00 EDT, Dosing Weight Start Date: 01/01/23 Status: Ordered Start: 12-13-2022 Norvasc 5 mg o ral tablet Dose : 5 mg = 1 tab(s), Oral, qDay, # 90 tab(s), 0 Refill(s), Pharmacy: [facility], HTN, goal below 140/90, 176.5, cm, 07/13/22 9:02:00 EST, Height, kg, 07/13/22 9:02:00 EST, Dosing Weight Start Date: 12/13/22 Status: Ordered Start: 06-22-2022 Norvasc 5 mg o ral tablet Dose : 5 mg = 1 tab(s), Oral, qDay, # 90 tab(s), 1 Refill(s), Pharmacy: [facility], HTN, goal below 140/90, 176.5, cm, 06/22/22 8:44:00 EST, Height, kg, 06/22/22 8:44:00 EST, Dosing Weight Start Date: 06/22/22 Status: Ordered Start: 08-09-2020 End: 08-09-2020 Norvasc 5 mg oral tablet Dos e : 5 mg = 1 tab(s), Oral, qDay, # 90 tab(s), 1 Refill(s), Pharmacy: [facility], HTN, goal below 140/90, 176.5, cm, 04/24/22 15:34:00 EST, Height, kg, 04/24/22 15:34:00 EST, Dosing Weight Start Date: 04/24/22 Status: Ordered ascorbic acid 500 mg oral capsule (3 sources) Vitamin C Start: 08-09-2021 Ascorbic Acid (Vitamin C) Active MG PO August 09, 2021 12:00am Start: 10-01-2019 Vitamin C 500 mg oral tablet Dose : 1,000 mg = 2 tab(s), Oral, qDay, 800mg tabs, # 90 tab(s), 0 Refill(s) Start Date: 10/01/19 Status: Ordered aspirin 81 mg delayed release oral tablet (14 sources) Nonsteroidal Anti-inflammatory Drug Start: 02-09-2019 aspirin 81 mg ora l delayed release tablet Dose : 81 mg = 1 tab(s), Oral, Daily, 0 Refill(s) Start Date: 02/09/19 Status: Ordered Start: 02-09-2019 aspirin 81 mg oral delayed release tablet Dose : 81 mg = 1 tab(s), Oral, Daily, 0 Refill(s) Start Date: 02/09/19 Status: Ordered Start: 06-24-2015 take 81 mg by mouth once daily Aspirin Active 81 MG PO DAILY@0800 June 24, 2015 1:00am Start: 06-14-2015 take 1 tablet by donte th once daily ASPIRIN 81 MG TABS One tablet by mouth daily ASPIRIN [id number] Taina Stone RN Start: 06-14-2015 take 1 tablet by donte th once daily ASPIRIN EC 81 MG TBEC One tablet by mouth daily ASPIRIN [id number] Anita Spain RN atorvastatin 40 mg oral tablet (11 sources) HMG-CoA Reductase Inhibitor Start: 01-01-2023 atorvastatin 40 mg o ral tablet Dose : 40 mg = 1 tab(s), Oral, qDay, # 90 tab(s), 1 Refill(s), Pharmacy: [facility], Hyperlipidemia LDL goal Start Date: 01/01/23 Status: Ordered Start: 12-13-2022 atorvastatin 4 0 mg oral tablet Dose : 40 mg = 1 tab(s), Oral, qDay, # 90 tab(s), 0 Refill(s), Pharmacy: [facility], Hyperlipidemia LDL goal Start Date: 12/13/22 Status: Ordered Start: 06-22-2022 atorvastatin 4 0 mg oral tablet Dose : 40 mg = 1 tab(s), Oral, qDay, # 90 tab(s), 1 Refill(s), Pharmacy: [facility], Hyperlipidemia LDL goal Start Date: 06/22/22 Status: Ordered Start: 04-24-2022 atorvastatin 4 0 mg oral tablet Dose : 40 mg = 1 tab(s), Oral, qDay, # 90 tab(s), 1 Refill(s), Pharmacy: [facility], Hyperlipidemia LDL goal Start Date: 04/24/22 Status: Ordered Start: 08-09-2020 End: 06-27-2021 atorvastatin 40 mg oral tabl et Dose : 40 mg = 1 tab(s), Oral, qDay, # 90 tab(s), 2 Refill(s), Pharmacy: [facility], Hyperlipidemia LDL goal Start Date: 07/21/21 Status: Ordered Start: 06-14-2015 End: 08-09-2020 take 20 mg by mouth once daily Atorvastatin Discontinued 20 MG PO DAILY June 24, 2015 1:00am August 09, 2020 4:45pm cholecalciferol 0.05 mg oral capsule (2 sources) Vitamin D Start: 08-09-2021 take 50 ug by mouth once daily Cholecalciferol (Vitamin D3) Active 50 MCG PO DAILY August 09, 2021 12:00am hydroCHLOROthiazide 12.5 mg oral tablet (11 sources) Thiazide Diuretic Start: 12-27-2023 hydroCHLOROthiazide 12.5 mg oral tablet Dose : 12.5 mg = 1 tab(s), Oral, qDay, # 90 tab(s), 1 Refill(s), Pharmacy: [facility], 176.5, cm, 01/14/24 6:56:00 EDT, Height, kg, 01/14/24 6:56:00 EDT, Dosing Weight Start Date: 01/14/24 Status: Ordered Start: 07-15-2023 hydroCHLOROthi azide 12.5 mg oral tablet Dose : 12.5 mg = 1 tab(s), Oral, qDay, # 90 tab(s), 1 Refill(s), Pharmacy: [facility], 177, cm, 07/15/23 7:14:00 EDT, Height, kg, 07/15/23 7:14:00 EDT, Dosing Weight Start Date: 07/15/23 Status: Ordered Start: 01-01-2023 hydroCHLOROthi azide 12.5 mg oral tablet Dose : 12.5 mg = 1 tab(s), Oral, qDay, # 90 tab(s), 1 Refill(s), Pharmacy: [facility], 176.5, cm, 01/01/23 7:19:00 EDT, Height, kg, 01/01/23 7:19:00 EDT, Dosing Weight Start Date: 01/01/23 Status: Ordered Start: 12-13-2022 hydroCHLOROthi azide 12.5 mg oral tablet Dose : 12.5 mg = 1 tab(s), Oral, qDay, # 90 tab(s), 0 Refill(s), Pharmacy: [facility], 176.5, cm, 07/13/22 9:02:00 EST, Height, kg, 07/13/22 9:02:00 EST, Dosing Weight Start Date: 12/13/22 Status: Ordered Start: 09-06-2022 take 12.5 mg by mout h once daily Hydrochlorothiazide Active 12.5 MG PO DAILY September 06, 2022 12:00am Start: 06-22-2022 hydroCHLOROthi azide 12.5 mg oral tablet Dose : 12.5 mg = 1 tab(s), Oral, qDay, # 90 tab(s), 1 Refill(s), Pharmacy: [facility], 176.5, cm, 06/22/22 8:44:00 EST, Height, kg, 06/22/22 8:44:00 EST, Dosing Weight Start Date: 06/22/22 Status: Ordered Start: 04-24-2022 hydroCHLOROthi azide 12.5 mg oral tablet Dose : 12.5 mg = 1 tab(s), Oral, qDay, # 90 tab(s), 1 Refill(s), Pharmacy: [facility], 176.5, cm, 04/24/22 15:34:00 EST, Height, kg, 04/24/22 15:34:00 EST, Dosing Weight Start Date: 04/24/22 Status: Ordered Start: 07-21-2021 hydroCHLOROthi azide 12.5 mg oral tablet Dose : 12.5 mg = 1 tab(s), Oral, qDay, # 90 tab(s), 2 Refill(s), Pharmacy: [facility], 176, cm, 05/18/21 7:59:00 EST, Height, kg, 05/18/21 7:59:00 EST, Dosing Weight Start Date: 07/21/21 Status: Ordered hydroCHLOROthiazide 12.5 mg / losartan potassium 100 mg oral tablet (3 sources) Thiazide Diuretic, Angiotensin 2 Receptor Sondra Start: 09-30-2020 End: 06-27-2021 take 1 tablet by mouth once daily hydrochlorothiazide-losartan 12.5-100 mg oral tablet Dose = 1 tab(s), Oral, qDay, # 90 tab(s), 2 Refill(s), [facility], HTN, goal below 140/90, 180.5, cm, 09/30/20 8:14:00 EDT, Height, kg, 09/30/20 8:14:00 EDT, Dosing Weight Start Date: 09/30/20 Stop Date: 06/27/21 Status: Ordered Start: 08-09-2020 End: 09-06-2022 take 1 tablet by mouth once daily Losartan-Hydrochlorothiazide Discontinue d 1 TABLET PO DAILY August 09, 2020 12:00am September 06, 2022 4:12pm losartan potassium 100 mg oral tablet (17 sources) Angiotensin 2 Receptor Sondra Start: 12-27-2023 losartan 100 mg oral tablet Dose : 100 mg = 1 tab(s), Oral, qDay, # 90 tab(s), 1 Refill(s), Pharmacy: [facility], 176.5, cm, 01/14/24 6:56:00 EDT, Height, kg, 01/14/24 6:56:00 EDT, Dosing Weight Start Date: 01/14/24 Status: Ordered Start: 07-15-2023 losartan 100 m g oral tablet Dose : 100 mg = 1 tab(s), Oral, qDay, # 90 tab(s), 1 Refill(s), Pharmacy: [facility], 177, cm, 07/15/23 7:14:00 EDT, Height, kg, 07/15/23 7:14:00 EDT, Dosing Weight Start Date: 07/15/23 Status: Ordered Start: 01-01-2023 losartan 100 m g oral tablet Dose : 100 mg = 1 tab(s), Oral, qDay, # 90 tab(s), 1 Refill(s), Pharmacy: [facility], 176.5, cm, 01/01/23 7:19:00 EDT, Height, kg, 01/01/23 7:19:00 EDT, Dosing Weight Start Date: 01/01/23 Status: Ordered Start: 12-13-2022 losartan 100 m g oral tablet Dose : 100 mg = 1 tab(s), Oral, qDay, # 90 tab(s), 0 Refill(s), Pharmacy: [facility], 176.5, cm, 07/13/22 9:02:00 EST, Height, kg, 07/13/22 9:02:00 EST, Dosing Weight Start Date: 12/13/22 Status: Ordered Start: 09-06-2022 take 100 mg by mouth once daily Losartan Active 100 MG PO DAILY September 06, 2022 12:00am Start: 06-22-2022 losartan 100 m g oral tablet Dose : 100 mg = 1 tab(s), Oral, qDay, # 90 tab(s), 1 Refill(s), Pharmacy: [facility], 176.5, cm, 06/22/22 8:44:00 EST, Height, kg, 06/22/22 8:44:00 EST, Dosing Weight Start Date: 06/22/22 Status: Ordered Start: 04-24-2022 losartan 100 m g oral tablet Dose : 100 mg = 1 tab(s), Oral, qDay, # 90 tab(s), 1 Refill(s), Pharmacy: [facility], 176.5, cm, 04/24/22 15:34:00 EST, Height, kg, 04/24/22 15:34:00 EST, Dosing Weight Start Date: 04/24/22 Status: Ordered Start: 07-21-2021 losartan 100 m g oral tablet Dose : 100 mg = 1 tab(s), Oral, qDay, # 90 tab(s), 2 Refill(s), Pharmacy: [facility], 176, cm, 05/18/21 7:59:00 EST, Height, kg, 05/18/21 7:59:00 EST, Dosing Weight Start Date: 07/21/21 Status: Ordered Start: 08-16-2017 End: 08-09-2020 take 25 mg by mouth once daily Losartan Discontinued 2 5 MG PO daily August 16, 2017 12:00am August 09, 2020 4:46pm Start: 06-14-2015 End: 08-13-2017 take 25 mg by mouth once daily Losartan Discontinued 2 5 MG PO DAILY June 24, 2015 1:00am August 13, 2017 7:17pm rosuvastatin calcium 20 mg oral tablet (4 sources) HMG-CoA Reductase Inhibitor Start: 07-15-2023 End: 07-12-2024 rosuvastatin 20 mg oral tablet Dose : 20 mg = 1 tab(s), Oral, qDay, # 90 tab(s), 1 Refill(s), Pharmacy: [facility], Hyperlipidemia LDL goal Start Date: 01/14/24 Stop Date: 07/12/24 Status: Ordered Vitamin C 500 mg oral tablet (9 sources) Start: 10-01-2019 Vitamin C 500 mg oral tablet Dose : 1,000 mg = 2 tab(s), Oral, qDay, 800mg tabs, # 90 tab(s), 0 Refill(s) Start Date: 10/01/19 Status: Ordered Vitamin D3 (10 sources) Start: 10-01-2019 Vitamin D3 Dos e : 2,000 unit(s) = 1 tab(s), Oral, Daily, 0 Refill(s) Start Date: 10/01/19 Status: Ordered zinc acetate 50 mg oral capsule (2 sources) Start: 08-09-2021 take 1 capsule by mouth once daily Zinc Acetate (Galzin) 50 mg (zinc) capsule Active 50 MG PO DAILY August 09, 2021 12:00am zinc gluconate 50 mg oral tablet (10 sources) Start: 04-01-2020 take 1 tablet by mouth once daily zinc (as gluconate) 50 mg oral tablet 1 tab daily, 0 Refill(s) Start Date: 04/01/20 Status: Ordered Completed/Discontinued Medications Medication Drug Class(es) Dates Sig (Normalized) Sig (Original) metoprolol tartrate 50 mg oral tablet (8 sources) beta-Adrenergic Sondra Start: 10-03-2022 End: 10-18-2022 take 50 mg by mouth every hour Metoprolol Tartrate Discontinued 50 MG PO .COMPLEX October 03, 2022 12:00am October 18, 2022 4:02pm 50 mg orally 1 hour prior to cardiac calcium score; Start: 05-10-2016 take 1 tablet by donte th once daily METOPROLOL SUCCINATE ER 25 MG [id number] One tablet by mouth daily METOPROLOL SUCCINATE [id number] Taina Stone RN Start: 05-10-2016 End: 07-12-2016 take 1 tablet by mouth twice daily METOPROLOL TARTRATE 25 MG TABS One tablet by mouth twice daily METOPROLOL TARTRATE [id number] Linda Hilton RN Start: 05-05-2016 End: 08-13-2017 take 25 mg by mouth once daily Metoprolol Tartrate Dis continued 25 MG PO DAILY May 05, 2016 1:00am August 13, 2017 7:17pm omeprazole 20 mg delayed release oral capsule (2 sources) Proton Pump Inhibitor Start: 08-20-2017 End: 08-09-2020 Omeprazole Discontinued 20 MG PO NEEDED August 20, 2017 12:00am August 09, 2020 4:46pm oxyCODONE hydrochloride 5 mg oral tablet (2 sources) Opioid Agonist Start: 08-21-2017 End: 08-09-2020 take 5 mg by mouth every four hours as needed Oxycodone Discontinued 5 MG PO EVERY 4 HOURS NEEDED 14 August 21, 2017 12:00am August 09, 2020 4:46pm Problems Active Problems Problem Classification Problem Date Documented Date Episodic/Chronic Abdominal hernia (6 sources) Bilateral recurrent inguinal hernia 07-13-2022 Episodic Comment on above: (07/06/2022 08:[address] Abdomen/Pelvis w/o Contrast) FINDINGS: GI/Bowel: Small and large bowel are normal in caliber. Normal appendix. Submucosal fat in the transverse and descending colon, which can be seen in remote inflammatory bowel disease or obesity. Small bilateral fat containing inguinal hernias with possible varicocele on the right. Mild diastasis recti. Administrative/social admission (10 sources) Administrative reason for encounter 12-30-2020 Episodic Aortic; peripheral; and visceral artery aneurysms (6 sources) Abdominal aortic aneurysm 07-13-2022 Chronic Comment on above: (07/06/2022 08:[address] Abdomen/Pelvis w/o Contrast) FINDINGS: Lower Chest: Included lung bases are clear. Organs: Diffusely decreased attenuation throughout the liver suggests fatty infiltration. Normal visualized spleen, pancreas, and adrenal glands. Status post cholecystectomy. No renal calculi or hydronephrosis. A 1.3 cm left renal cyst is present. GI/Bowel: Small and large bowel are normal in caliber. Normal appendix. Submucosal fat in the transverse and descending colon, which can be seen in remote inflammatory bowel disease or obesity. Pelvis: No bladder wall thickening. Normal size prostate. Peritoneum/Retroperitoneum: No free fluid or air. Fusiform aneurysm of the infrarenal abdominal aorta up to 4 cm. No lymphadenopathy. Bones/Soft Tissues: There are 6 lumbar type vertebral bodies with partial sacralization of L6 on the right. Mild dextrocurvature of the lumbar spine. No aggressive osseous lesion. Degenerative changes in the spine. Small bilateral fat containing inguinal hernias with possible varicocele on the right. Mild diastasis recti. IMPRESSION: 1. No urinary calculi or hydronephrosis. 2. Hepatic steatosis. 3. A 3. 4 cm infrarenal abdominal aortic aneurysm. See guidelines below for follow-up. RECOMMENDATIONS: 4 cm infrarenal abdominal aortic aneurysm. Recommend follow-up every 12 months and vascular consultation. Cardiac dysrhythmias (9 sources) Supraventricular tachycardia; Translations: [Premature atrial contraction] Onset: 06-09-2015 05-10-2016 Chronic Coronary atherosclerosis and other heart disease (4 sources) Coronary arteriosclerosis 08-03-2023 Chronic Comment on above: seen on CT coronary 2022 Disorders of lipid metabolism (20 sources) Hyperlipidemia; Translations: [Hypertriglyceridemia] Onset: 06-09-2015 06-09-2015 Chronic Essential hypertension (20 sources) Hypertensive disorder; Translations: [Essential hypertension] Onset: 06-09-2015 06-09-2015 Chronic Comment on above: (05/25/2016 Echocard iogram) IMPRESSION: 1. Normal left ventricular size and systolic function. EF 60%. 2. Normal right ventricular size and function. 3. No significant valvular disease. 06/27/2015 Heart Cat heterization: IMPRESSION: 1. Normal left main coronary artery. 2. Left anterior descending artery with no high-grade stenosis. 3. Left circumflex artery, which is dominant with no high-grade stenosis. 4. Nondominant right coronary artery with no high-grade stenosis. 5. Preserved ejection fraction. Genitourinary symptoms and ill-defined conditions (7 sources) Blood in urine 06-22-2022 Episodic Hypertension with complications and secondary hypertension (4 sources) Hypertensive heart disease 08-03-2023 Chronic Lymphadenitis (1 source) Lymphadenopathy 01-28-2024 Episodic Nonmalignant breast conditions (2 sources) Breast lump; Translations: [Gynecomastia] 01-28-2024 Episodic Other liver diseases (6 sources) Steatosis of liver 07-13-2022 Chronic Other liver diseases (2 sources) Fatty (change of) liver, not elsewhere classified; Translations: [Fatty (change of) liver, not elsewhere classified] Onset: 01-09-2024 Chronic Other nutritional; endocrine; and metabolic disorders (1 source) Body mass index (BMI) 38.0-38.9, adult; Translations: [Body mass index (BMI) 38.0-38.9, adult] Onset: 06-14-2015 06-14-2015 Chronic Other nutritional; endocrine; and metabolic disorders (6 sources) Body mass index 30+ - obesity 07-13-2022 Chronic Other nutritional; endocrine; and metabolic disorders (4 sources) Morbid obesity 08-03-2023 Chronic Other skin disorders (4 sources) Mass of lower limb 08-03-2023 Episodic Other upper respiratory disease (10 sources) Seasonal allergy 02-09-2019 Chronic Residual codes; unclassified (6 sources) Increased body mass index 09-11-2019 Episodic Residual codes; unclassified (4 sources) Screening due 08-03-2023 Episodic Screening and history of mental health and substance abuse codes (4 sources) Ex-smoker 08-03-2023 Episodic Comment on above: quit about 2003 Spondylosis; intervertebral disc disorders; other back problems (10 sources) Low back pain 02-17-2019 Episodic Comment on above: (07/06/2022 08:[address] Abdomen/Pelvis w/o Contrast) FINDINGS: Bones/Soft Tissues: There are 6 lumbar type vertebral bodies with partial sacralization of L6 on the right. Mild dextrocurvature of the lumbar spine. No aggressive osseous lesion. Degenerative changes in the spine. Small bilateral fat containing inguinal hernias with possible varicocele on the right. Mild diastasis recti. Unclassified (20 sources) Patient encounter status 02-09-2019 Unclassified (3 sources) Non-smoker 06-22-2022 Past or Other Problems Problem Classification Problem Date Documented Date Episodic/Chronic Diabetes mellitus without complication (12 sources) Impaired fasting glycemia; Translations: [Impaired fasting glucose] Onset: 01-09-2024 02-09-2019 Episodic Nonspecific chest pain (1 source) Precordial pain; Translations: [Precordial pain] Onset: 06-15-2015 06-15-2015 Episodic Other aftercare (1 source) Other assisted (current) drug therapy; Translations: [Other termite exterminator (current) drug therapy] Onset: 06-09-2015 06-09-2015 Episodic Other screening for suspected conditions (not mental disorders or infectious disease) (6 sources) Calcification of coronary artery; Translations: [Abnormal findings on diagnostic imaging of heart and coronary circulation] Onset: 11-21-2022 10-18-2022 Episodic Unclassified (2 sources) Family history of sudden ; Translations: [Family history of ischemic heart disease and other diseases of the circulatory system] 06-09-2015 Episodic Results Test Name Value Interpretation Reference Range Facility .GFRon 07-11-2024 Estimated Glomerular Filtration Rate 103 ml/min/1.73sqm Normal [facility] Comment on above: Result Comment: Stages of Chronic Kidney Disease (CKD) Stage Description eGFR(ml/min/1.73 sq.m.) CKD 1 Normal kidney function or >=90 normal kindney function with possible kidney damage (ex. Proteinuria) CKD 2 Kidney damage with mild loss 60-89 of kidney function CKD 3a Mild to moderate loss of kidney 45-59 function CKD 3b Moderate to severe loss of 30-44 of kindey function CKD 4 Severe loss of kidney function 15-29 CKD 5 Kidney failure <15 Note: (go live 2024) the eGFR calculation was updated to the 2020 CKD-EPI creatinine equation without a race factor to calculate the eGFR results. Performed By: #### C MP, LIPID, A1C, GFR #### [id number] [place], [place] [address] A1Con 07-11-2024 Glucose [Mass/Vol] 117 mg/dL Normal [facility] Comment on above: Result Comment: Nilda mated Average Glucose calculated by equation ((28.7xA1C)-46.7) Estimated average glucose (eAG) is a calculated value from Hemoglobin A1C and is canvas products sales representative of the average blood glucose level in the last 2-3 month period. Normal range: less than 114 mg/dL Performed By: #### C MP, LIPID, A1C, GFR #### [id number] [place], [place] [address] HbA1c (Bld) [Mass fraction] 5.7 % Normal 4.3-6.4 [facility] Comment on above: Performed By: #### C MP, LIPID, A1C, GFR #### [address] [address] CMPon 07-11-2024 Albumin Level 4.0 G/dL Normal 3.5-5.0 [facility] Comment on above: Performed By: #### C MP, LIPID, A1C, GFR #### [address] [address] Albumin/Globulin [Mass ratio] 1.4 {ratio} Normal 1.1-2.5 [facility] Comment on above: Performed By: #### C MP, LIPID, A1C, GFR #### [address] [address] ALP [Catalytic activity/Vol] 105 U/L Normal 40-135 [facility] Comment on above: Performed By: #### C MP, LIPID, A1C, GFR #### [address] [address] ALT [Catalytic activity/Vol] 37 U/L Normal 16-63 [facility] Comment on above: Performed By: #### C MP, LIPID, A1C, GFR #### [address] [address] AST [Catalytic activity/Vol] 20 U/L Normal 10-40 [facility] Comment on above: Performed By: #### C MP, LIPID, A1C, GFR #### [address] [address] Bili Total 0.7 mg/dL Normal 0.2-1.0 [facility] Comment on above: Result Comment: Use of this assay is not recommended for patients undergoing treatment with eltrombopag due to the potential for falsely elevated results. Performed By: #### C MP, LIPID, A1C, GFR #### [address] [address] BUN/Creatinine Ratio 14 ratio Normal 7-27 [facility] Comment on above: Performed By: #### C MP, LIPID, A1C, GFR #### [address] [address] Calcium [Mass/Vol] 9.1 mg/dL Normal 8.4-10.2 [facility] Comment on above: Performed By: #### C MP, LIPID, A1C, GFR #### [address] [address] Chloride [Moles/Vol] 103 mmol/L Normal 98-107 [facility] Comment on above: Performed By: #### C MP, LIPID, A1C, GFR #### [address] [address] CO2 [Moles/Vol] 31 mmol/L High 22-29 [facility] Comment on above: Performed By: #### C MP, LIPID, A1C, GFR #### [address] [address] Creatinine [Mass/Vol] 0.80 mg/dL Normal 0.70-1.30 [facility] Comment on above: Result Comment: Test ing performed on ElementsLocal Dimension EXL analyzer using a modified kinetic Brook technique. Performed By: #### C MP, LIPID, A1C, GFR #### [address] [address] Electrolyte Balance 5.0 mEq/L Normal 4.0-15.0 [facility] Comment on above: Performed By: #### C MP, LIPID, A1C, GFR #### [address] [address] Globulin 2.9 G/dL Normal 1.5-3.8 [facility] Comment on above: Performed By: #### C MP, LIPID, A1C, GFR #### [address] [address] Glucose [Mass/Vol] 104 mg/dL Normal 70-105 [facility] Comment on above: Performed By: #### C MP, LIPID, A1C, GFR #### [address] [address] Potassium [Moles/Vol] 4.0 mmol/L Normal 3.5-5.1 [facility] Comment on above: Performed By: #### C MP, LIPID, A1C, GFR #### [address] [address] Sodium [Moles/Vol] 139 mmol/L Normal 136-145 [facility] Comment on above: Performed By: #### C MP, LIPID, A1C, GFR #### [address] [address] Total Protein 6.9 G/dL Normal 6.4-8.2 [facility] Comment on above: Performed By: #### C MP, LIPID, A1C, GFR #### [address] [address] Urea nitrogen [Mass/Vol] 11 mg/dL Normal 7-18 [facility] Comment on above: Performed By: #### C MP, LIPID, A1C, GFR #### [address] [address] LIPIDon 07-11-2024 Cholesterol [Mass/Vol] 148 mg/dL Normal 0-200 [facility] Comment on above: Result Comment: Chol esterol Reference Interval: Less than 200 Desirable 200-239 Borderline high risk 240 and above High risk Performed By: #### C MP, LIPID, A1C, GFR #### [address] [address] Cholesterol in HDL [Mass/Vol] 62 mg/dL High 40-60 [facility] Comment on above: Performed By: #### C MP, LIPID, A1C, GFR #### [address] [address] Cholesterol in LDL [Mass/Vol] 73 mg/dL Normal 0-130 [facility] Comment on above: Performed By: #### C MP, LIPID, A1C, GFR #### [address] [address] Triglyceride [Mass/Vol] 67 mg/dL Normal 0-150 [facility] Comment on above: Result Comment: Trig lyceride Reference Interval: Less than 150 Normal 150-199 Borderline high risk 200-499 High risk 500 or higher Very high risk Performed By: #### C MP, LIPID, A1C, GFR #### [address] [place], [place] [address] [place] MAMMOGRAM DIAGNOSTIC BILA TERAL W/TOMOon 02-18-2024 [place] MAMMOGRAM DIAGNOSTIC BILATERAL W/GHULAM ORIGINAL FROM: ISSA MANZANO [address] [place], [place] [address] PROCEDURE FOR: MARTÍNEZ VALDIVIA [address] [facility] [address] [place] [address] Home: PID#: [id number] Exam#: [id number] : 1965 Age: 58 TO: ARCHANA REYES 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 2D standard and 3D tomosynthesis combination imaging performed. Current study was also evaluated with a Computer Aided Detection (CAD) system. COMPARISON: None. HISTORY: ORDERING SYSTEM PROVIDED HISTORY: Reason for Exam: Diagnostic mammo Right breast pain FINDINGS: BREAST DENSITY: n/a There is mild bilateral right greater than left gynecomastia. No significant masses, calcifications, or other findings. IMPRESSION: No mammographic evidence of malignancy. Right greater than left mild gynecomastia. Recommend clinical follow-up. Tyrer Cuzick risk calculations do not apply for this patient. BIRADS: BI-RADS: 2: Benign RECALL: none RECALL TYPE: unspecified LETTER SENT: Normal BI-RADS 1 and 2 Interpreted by: Alex Gandara MD Preliminary Report By: Alex Gandara MD Electronically signed By Alex Gandara MD Dictated Date: 02/18/2024 9:59:40 AM Prelim Date: 02/18/2024 10:01:50 AM Sign Date: 02/18/2024 10:01:50 AM Ordering Provider: ARCHANA REYES CLINICAL: RIGHT BREAST PAIN. Special Delivery Mail Carrier: KATELYNN ALMODOVAR RT(R)(M)(CT) letter sent: Normal BI-RADS 1 and 2 Mammogram BI-RADS: 2 Benign Normal [facility] .GFRon 01-09-2024 GFR 104 ml/min/1.73sqm Normal [facility] ([place]) Comment on above: Result Comment: GFR Population mean for , Non- Americans Ages 20-29 = 116 mL/min/1.73 sq.m. Ages 30-39 = 107 mL/min/1.73 sq.m. Ages 40-49 = 99 mL/min/1.73 sq.m. Ages 50-59 = 93 mL/min/1.73 sq.m. Ages 60-69 = 85 mL/min/1.73 sq.m. Ages 70+ = 75 mL/min/1.73 sq.m. Chronic Kidney Disease: Less than 60 mL/min/1.73 square meters End Stage Renal Disease: Less than 15 mL/min/1.73 square meters Performed By: #### L IPID, A1C, CMP, GFR, PSA #### [address] [address] GFR Non- 86 ml/min/1.73sqm Normal [facility] ([place]) Comment on above: Result Comment: GFR Population mean for , Non- Americans Ages 20-29 = 116 mL/min/1.73 sq.m. Ages 30-39 = 107 mL/min/1.73 sq.m. Ages 40-49 = 99 mL/min/1.73 sq.m. Ages 50-59 = 93 mL/min/1.73 sq.m. Ages 60-69 = 85 mL/min/1.73 sq.m. Ages 70+ = 75 mL/min/1.73 sq.m. Chronic Kidney Disease: Less than 60 mL/min/1.73 square meters End Stage Renal Disease: Less than 15 mL/min/1.73 square meters Performed By: #### L IPID, A1C, CMP, GFR, PSA #### [address] [address] A1Con 01-09-2024 Glucose [Mass/Vol] 120 mg/dL Normal [facility] ([place]) Comment on above: Result Comment: Nilda mated Average Glucose calculated by equation ((28.7xA1C)-46.7) Estimated average glucose (eAG) is a calculated value from Hemoglobin A1C and is canvas products sales representative of the average blood glucose level in the last 2-3 month period. Normal range: less than 114 mg/dL Performed By: #### L IPID, A1C, CMP, GFR, PSA #### [address] [address] HbA1c (Bld) [Mass fraction] 5.8 % Normal 4.3-6.4 [facility] ([place]) Comment on above: Performed By: #### L IPID, A1C, CMP, GFR, PSA #### [address] [address] CMPon 01-09-2024 Albumin Level 4.1 G/dL Normal 3.5-5.0 [facility] ([place]) Comment on above: Performed By: #### L IPID, A1C, CMP, GFR, PSA #### [address] [address] Albumin/Globulin [Mass ratio] 1.5 {ratio} Normal 1.1-2.5 [facility] ([place]) Comment on above: Performed By: #### L IPID, A1C, CMP, GFR, PSA #### [address] [address] ALP [Catalytic activity/Vol] 91 U/L Normal 40-135 [facility] ([place]) Comment on above: Performed By: #### L IPID, A1C, CMP, GFR, PSA #### [address] [address] ALT [Catalytic activity/Vol] 43 U/L Normal 16-63 [facility] ([place]) Comment on above: Performed By: #### L IPID, A1C, CMP, GFR, PSA #### [address] [address] AST [Catalytic activity/Vol] 23 U/L Normal 10-40 [facility] ([place]) Comment on above: Performed By: #### L IPID, A1C, CMP, GFR, PSA #### [address] [address] Bili Total 0.6 mg/dL Normal 0.2-1.0 [facility] ([place]) Comment on above: Result Comment: Use of this assay is not recommended for patients undergoing treatment with eltrombopag due to the potential for falsely elevated results. Performed By: #### L IPID, A1C, CMP, GFR, PSA #### [address] [address] BUN/Creatinine Ratio 15 ratio Normal 7-27 [facility] ([place]) Comment on above: Performed By: #### L IPID, A1C, CMP, GFR, PSA #### [address] [address] Calcium [Mass/Vol] 9.8 mg/dL Normal 8.4-10.2 [facility] ([place] Comment on above: Performed By: #### L IPID, A1C, CMP, GFR, PSA #### [address] [address] Chloride [Moles/Vol] 102 mmol/L Normal 98-107 [facility] ([place]) Comment on above: Performed By: #### L IPID, A1C, CMP, GFR, PSA #### [address] [address] CO2 [Moles/Vol] 29 mmol/L Normal 22-29 [facility] ([place]) Comment on above: Performed By: #### L IPID, A1C, CMP, GFR, PSA #### [address] [address] Creatinine [Mass/Vol] 0.91 mg/dL Normal 0.70-1.30 [facility] ([place]) Comment on above: Result Comment: Test ing performed on Siemens Dimension EXL analyzer using a modified kinetic Brook technique. Performed By: #### L IPID, A1C, CMP, GFR, PSA #### [address] [address] Electrolyte Balance 7.0 mEq/L Normal 4.0-15.0 [facility] ([place]) Comment on above: Performed By: #### L IPID, A1C, CMP, GFR, PSA #### [address] [address] Globulin 2.7 G/dL Normal [facility] ([place]) Comment on above: Performed By: #### L IPID, A1C, CMP, GFR, PSA #### [address] [address] Glucose [Mass/Vol] 112 mg/dL High 70-105 [facility] ([place] Comment on above: Performed By: #### L IPID, A1C, CMP, GFR, PSA #### [address] [address] Potassium [Moles/Vol] 4.5 mmol/L Normal 3.5-5.1 [facility] ([place]) Comment on above: Performed By: #### L IPID, A1C, CMP, GFR, PSA #### [address] [address] Sodium [Moles/Vol] 138 mmol/L Normal 136-145 [facility] ([place] Comment on above: Performed By: #### L IPID, A1C, CMP, GFR, PSA #### [address] [address] Total Protein 6.8 G/dL Normal 6.4-8.2 [facility] ([place]) Comment on above: Performed By: #### L IPID, A1C, CMP, GFR, PSA #### [address] [address] Urea nitrogen [Mass/Vol] 14 mg/dL Normal 7-18 [facility] ([place]) Comment on above: Performed By: #### L IPID, A1C, CMP, GFR, PSA #### [address] [address] LABORATORYOrdered By: SYSTEM SYSTEM on 01-09-2024 Albumin BCP dye [Mass/Vol] 4.1 G/dL Normal 3.5 - 5.0 G/dL AO ADM SS Albumin/Globulin [Mass ratio] 1.5 {ratio} Normal 1.1 - 2.5 ratio AO ADM SS ALP [Catalytic activity/Vol] 91 U/L Normal 40 - 135 U/L AO ADM SS ALT With P-5'-P [Catalytic activity/Vol] 43 U/L Normal 16 - 63 U/L AO ADM SS AST With P-5'-P [Catalytic activity/Vol] 23 U/L Normal 10 - 40 U/L AO ADM SS Bilirubin [Mass/Vol] 0.6 mg/dL Normal 0.2 - 1 .0 mg/dL AO ADM SS Comment on above: Interpretive Data: U se of this assay is not recommended for patients undergoing treatment with eltrombopag due to the potential for falsely elevated results. Calcium [Mass/Vol] 9.8 mg/dL Normal 8.4 - 10. 2 mg/dL AO ADM SS Chloride [Moles/Vol] 102 mmol/L Normal 98 - 10 7 mmol/L AO ADM SS CO2 [Moles/Vol] 29 mmol/L Normal 22 - 29 mmol/L AO ADM SS Creatinine [Mass/Vol] 0.91 mg/dL Normal 0.70 - 1.30 mg/dL AO ADM SS Comment on above: Interpretive Data: T esting performed on ElementsLocal Dimension EXL analyzer using a modified kinetic Brook technique. Electrolyte Balance 7.0 mEq/L Normal 4.0 - 15 .0 mEq/L AO ADM SS GFR/1.73 sq M.predicted among blacks MDRD (S/P/Bld) [Vol rate/Area] 104 ml/min/1.73sqm Invalid Interpretation Code AO Chemistry S Comment on above: Interpretive Data: GFR Population mean for , Non- Americans Ages 20-29 = 116 mL/min/1.73 sq.m. Ages 30-39 = 107 mL/min/1.73 sq.m. Ages 40-49 = 99 mL/min/1.73 sq.m. Ages 50-59 = 93 mL/min/1.73 sq.m. Ages 60-69 = 85 mL/min/1.73 sq.m. Ages 70+ = 75 mL/min/1.73 sq.m. Chronic Kidney Disease: Less than 60 mL/min/1.73 square meters End Stage Renal Disease: Less than 15 mL/min/1.73 square meters GFR/1.73 sq M.predicted among non-blacks MDRD (S/P/Bld) [Vol rate/Area] 86 ml/min/1.73sqm Invalid Interpretation Code AO Chemistry S Comment on above: Interpretive Data: GFR Population mean for , Non- Americans Ages 20-29 = 116 mL/min/1.73 sq.m. Ages 30-39 = 107 mL/min/1.73 sq.m. Ages 40-49 = 99 mL/min/1.73 sq.m. Ages 50-59 = 93 mL/min/1.73 sq.m. Ages 60-69 = 85 mL/min/1.73 sq.m. Ages 70+ = 75 mL/min/1.73 sq.m. Chronic Kidney Disease: Less than 60 mL/min/1.73 square meters End Stage Renal Disease: Less than 15 mL/min/1.73 square meters Globulin 2.7 G/dL Invalid Interpretation Code AO ADM SS Glucose [Mass/Vol] 112 mg/dL High 70 - 105 mg/dL AO ADM SS Glucose [Mass/Vol] 120 mg/dL Invalid Interpretation Code AO Chemistry S Comment on above: Interpretive Data: E stimated average glucose (eAG) is a calculated value from Hemoglobin A1C and is canvas products sales representative of the average blood glucose level in the last 2-3 month period. Normal range: less than 114 mg/dL HbA1c (Bld) [Mass fraction] 5.8 % Normal 4.3 - 6.4 % AO ADM SS Potassium [Moles/Vol] 4.5 mmol/L Normal 3.5 - 5.1 mmol/L AO ADM SS Prostate specific Ag [Mass/Vol] 0.39 ng/mL Normal 0.00 - 4.00 ng/mL AO ADM SS Protein [Mass/Vol] 6.8 G/dL Normal 6.4 - 8.2 G/dL AO ADM SS Sodium [Moles/Vol] 138 mmol/L Normal 136 - 145 mmol/L AO ADM SS Urea nitrogen [Mass/Vol] 14 mg/dL Normal 7 - 18 mg/dL AO ADM SS Urea nitrogen/Creatinine [Mass ratio] 15 ratio Normal 7 - 27 ratio AO ADM SS LABORATORYOrdered By: Espinoza Kaba on 01-09-2024 Cholesterol [Mass/Vol] 189 mg/dL Normal 0 - 200 mg/dL AO ADM SS Comment on above: Interpretive Data: C holesterol Reference Interval: Less than 200 Desirable 200-239 Borderline high risk 240 and above High risk Cholesterol in HDL [Mass/Vol] 50 mg/dL Normal 40 - 60 mg/dL AO ADM SS Cholesterol in LDL [Mass/Vol] 101 mg/dL Normal 0 - 130 mg/dL AO ADM SS Triglyceride [Mass/Vol] 189 mg/dL High 0 - 150 mg/dL AO ADM SS Comment on above: Interpretive Data: T riglyceride Reference Interval: Less than 150 Normal 150-199 Borderline high risk 200-499 High risk 500 or higher Very high risk LIPIDon 01-09-2024 Cholesterol [Mass/Vol] 189 mg/dL Normal 0-200 [facility] ([place]) Comment on above: Result Comment: Chol esterol Reference Interval: Less than 200 Desirable 200-239 Borderline high risk 240 and above High risk Performed By: #### L IPID, A1C, CMP, GFR, PSA #### [address] [address] Cholesterol in HDL [Mass/Vol] 50 mg/dL Normal 40-60 [facility] ([place]) Comment on above: Performed By: #### L IPID, A1C, CMP, GFR, PSA #### [address] [address] Cholesterol in LDL [Mass/Vol] 101 mg/dL Normal 0-130 [facility] ([place]) Comment on above: Performed By: #### L IPID, A1C, CMP, GFR, PSA #### [address] [address] Triglyceride [Mass/Vol] 189 mg/dL High 0-150 [facility] ([place]) Comment on above: Result Comment: Trig lyceride Reference Interval: Less than 150 Normal 150-199 Borderline high risk 200-499 High risk 500 or higher Very high risk Performed By: #### L IPID, A1C, CMP, GFR, PSA #### [address] [address] PSAon 01-09-2024 Prostate Specific Antigen 0.39 ng/mL Normal 0.00-4.00 [facility] ([place]) Comment on above: Performed By: #### L IPID, A1C, CMP, GFR, PSA #### [place] [id number] [place] AORTAon 01-07-2024 US AORTA ORIGINAL EXAMINATION: SCREENING ULTRASOUND OF THE AORTA01/07/2024 7:45 am AORTA SCREENING TECHNIQUE: Duplex ultrasound using B-mode/liz scaled imaging, Doppler spectral analysis and color flow Doppler was obtained of the aorta. COMPARISON: 07/06/2022 HISTORY: ORDERING SYSTEM PROVIDED HISTORY: Reason for Exam: reevaluation of a 4.5 cm abdominal aortic aneurysm with Radiology recommendation for repeating in a year FINDINGS: Portions of the aorta are obscured by bowel gas and body habitus. The aortic bifurcation and proximal common iliac arteries are obscured by bowel gas artifacts. Aorta measurements: Proximal: 2.7 x 2.9 cm Mid: 4.1 x 4.3 cm Distal: 2.5 x 2.8 cm Atherosclerosis: Moderate IMPRESSION: Essentially stable 4.3 cm abdominal aortic aneurysm.. A 1 year followup is recommended based on the AAA size interval of 4.0-4.4 cm. Vascular consultation is also recommended. Reference: J Vasc Surgery 2009 Oct;50(4 Supplemental):S2-49 I have personally reviewed the images of this examination and agree with the resident's findings and interpretation. Interpreted by: Diego Alvarez MD Preliminary Report By: Denton Null Electronically signed By Diego Alvarez MD Dictated Date: 01/07/2024 2:24:22 PM Prelim Date: 01/07/2024 3:27:52 PM Sign Date: 01/07/2024 3:27:52 PM Ordering Provider: ARCHANA White [facility] ([place]) Cardiology Visit Reporton Cardiology Visit Report [facility] [place] [id number] [facility] [address] [address] [place] [address] OFFICE VISIT Date of Service: 08/16/23 MR#: [id number] Acct: [id number] Name: MARTÍNEZ VALDIVIA Rep #: [id number] : 1965 Provider: Dr. Christopher Wells MD Age/Sex: 58/M Location: [facility] Status: Signed HPI [facility] History of Present Illness Details: MARTÍNEZ VALDIVIA, is a 58 M who presents to the office today for a follow-up visit. You do remember he underwent evaluation for coronary anatomy and underwent a cardiac catheterization 2015 which demonstrated essentially normal coronary arteries and preserved left ventricular ejection fraction. He had previously undergone radiofrequency ablation for supraventricular tachycardia and has not had any further symptomatology. He is concerned about his family history. As you know he underwent a coronary calcium score which demonstrated a total Agatston score of 402. He underwent a pharmacologic myocardial perfusion stress test which demonstrated no evidence of ischemia. He denies chest, arm, jaw, or neck discomfort. He denies symptoms of shortness of breath with exertion, shortness of breath at rest, orthopnea, PND, sudden weight gain, or bilateral lower extremity edema. He denies chronic cough. He denies palpitations, lightheadedness, dizziness, near syncope, or syncopal episodes. He denies claudication issues. He denies fever or chills. He denies blood in urine, blood in stool, or epistaxis. He denies myalgia. He denies unexplainable fatigue. His exercise tolerance is stable. 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 Accompanied by: Self Is patient in pain?: No Allergies No Known Allergies Allergy (Verified 08/16/23 13:04) Medications aspirin 81 mg chewable tablet 81 mg PO DAILY@0800 06/24/15 [History Confirmed 08/16/23] amlodipine 5 mg tablet 5 mg PO QHS 08/09/20 [History Confirmed 08/16/23] hydrochlorothiazide 12.5 mg tablet 12.5 mg PO DAILY 09/06/22 [History Confirmed 08/16/23] losartan 100 mg tablet 100 mg PO DAILY 09/06/22 [History Confirmed 08/16/23] ascorbic acid (vitamin C) 500 mg capsule mg PO PRN 08/16/23 [History Confirmed 08/16/23] cholecalciferol (vitamin D3) 50 mcg (2,000 unit) capsule 50 mcg PO DAILY PRN 08/16/23 [History Confirmed 08/16/23] rosuvastatin 20 mg tablet 20 mg PO QDAY 08/16/23 [History Confirmed 08/16/23] zinc acetate 50 mg (zinc) capsule (Galzin) 50 mg PO DAILY PRN 08/16/23 [History Confirmed 08/16/23] [facility] Medical History Essential (primary) hypertension GERD (gastroesophageal reflux disease) Hyperlipidemia Obesity Premature atrial contractions Supraventricular tachycardia Surgical History History of cardiac radiofrequency ablation (RFA) (05/25/16) History of left heart catheterization (06/27/15) Family History Father , Age 54 of CAD (AR age 49) Myocardial infarction CAD (coronary artery disease), Onset Age: 49 CABG Brother CAD (coronary artery disease), Onset Age: 49 Stented coronary artery Social History Smoking Status: Former smoker how long ago did patient quit smokin alcohol intake: current alcohol intake frequency: a few times a week Alcohol type: beer substance use type: does not use caffeine: Yes Type: carbonated beverages what type of physical activity do you participate in: none seatbelt use: always do you feel safe at home: Yes ROS Const Const: Negative for fatigue, weakness, headache(s), daytime sleepiness or difficulty sleeping ENT ENT: Negative for headache(s), dizziness or Nosebleed/epistaxis Cardio Chest Pain: No Palpitations: No Edema: Bilateral (BLE in evenings) Resp Respiratory: Negative for SOB with activity, SOB at rest, SOB orthopnea SOB lying down or Cough GI GI: Negative nausea, vomiting or heartburn Neuro Neuro: Negative for dizziness, lightheadedness, near syncope, headache(s) or weakness Endo Endo: Negative for fatigue Cardiology Exam Const Appearance: cooperative, healthy appearing, no acute distress, well developed and well groomed Nutritional Appearance: average body habitus and well nourished Orientation: alert, awake and oriented x3 Head Head: normal to inspection, normocephalic and atraumatic Ears: hearing grossly normal bilaterally and external ears normal Nose: external nose normal, nares normal, nasal mucous membranes and turbinates normal, se (more content not included)... Normal [facility] LABORATORYOrdered By: SYSTEM SYSTEM on 07-04-2023 Albumin BCP dye [Mass/Vol] 4.0 G/dL Normal 3.5 - 5.0 G/dL AO ADM SS Albumin/Globulin [Mass ratio] 1.3 {ratio} Normal 1.1 - 2.5 ratio AO ADM SS ALP [Catalytic activity/Vol] 111 U/L Normal 40 - 135 U/L AO ADM SS ALT With P-5'-P [Catalytic activity/Vol] 40 U/L Normal 16 - 63 U/L AO ADM SS AST With P-5'-P [Catalytic activity/Vol] 24 U/L Normal 10 - 40 U/L AO ADM SS Bilirubin [Mass/Vol] 1.0 mg/dL Normal 0.2 - 1 .0 mg/dL AO ADM SS Comment on above: Interpretive Data: U se of this assay is not recommended for patients undergoing treatment with eltrombopag due to the potential for falsely elevated results. Calcium [Mass/Vol] 9.6 mg/dL Normal 8.4 - 10. 2 mg/dL AO ADM SS Chloride [Moles/Vol] 99 mmol/L Normal 98 - 10 7 mmol/L AO ADM SS CO2 [Moles/Vol] 29 mmol/L Normal 22 - 29 mmol/L AO ADM SS Creatinine [Mass/Vol] 1.00 mg/dL Normal 0.70 - 1.30 mg/dL AO ADM SS Electrolyte Balance 12.0 mEq/L Normal 4.0 - 15 .0 mEq/L AO ADM SS GFR/1.73 sq M.predicted among blacks MDRD (S/P/Bld) [Vol rate/Area] 93 ml/min/1.73sqm Invalid Interpretation Code AO Chemistry S Comment on above: Interpretive Data: GFR Population mean for , Non- Americans Ages 20-29 = 116 mL/min/1.73 sq.m. Ages 30-39 = 107 mL/min/1.73 sq.m. Ages 40-49 = 99 mL/min/1.73 sq.m. Ages 50-59 = 93 mL/min/1.73 sq.m. Ages 60-69 = 85 mL/min/1.73 sq.m. Ages 70+ = 75 mL/min/1.73 sq.m. Chronic Kidney Disease: Less than 60 mL/min/1.73 square meters End Stage Renal Disease: Less than 15 mL/min/1.73 square meters GFR/1.73 sq M.predicted among non-blacks MDRD (S/P/Bld) [Vol rate/Area] 77 ml/min/1.73sqm Invalid Interpretation Code AO Chemistry S Comment on above: Interpretive Data: GFR Population mean for , Non- Americans Ages 20-29 = 116 mL/min/1.73 sq.m. Ages 30-39 = 107 mL/min/1.73 sq.m. Ages 40-49 = 99 mL/min/1.73 sq.m. Ages 50-59 = 93 mL/min/1.73 sq.m. Ages 60-69 = 85 mL/min/1.73 sq.m. Ages 70+ = 75 mL/min/1.73 sq.m. Chronic Kidney Disease: Less than 60 mL/min/1.73 square meters End Stage Renal Disease: Less than 15 mL/min/1.73 square meters Globulin 3.0 G/dL Invalid Interpretation Code AO ADM SS Glucose [Mass/Vol] 117 mg/dL High 70 - 105 mg/dL AO ADM SS HbA1c (Bld) [Mass fraction] 5.6 % Normal 4.3 - 6.4 % AO ADM SS Potassium [Moles/Vol] 4.0 mmol/L Normal 3.5 - 5.1 mmol/L AO ADM SS Protein [Mass/Vol] 7.0 G/dL Normal 6.4 - 8.2 G/dL AO ADM SS Sodium [Moles/Vol] 140 mmol/L Normal 136 - 145 mmol/L AO ADM SS Urea nitrogen [Mass/Vol] 12 mg/dL Normal 7 - 18 mg/dL AO ADM SS Urea nitrogen/Creatinine [Mass ratio] 12 ratio Normal 7 - 27 ratio AO ADM SS LABORATORYOrdered By: Swetha Hughes on 07-04-2023 Cholesterol [Mass/Vol] 206 mg/dL High 0 - 200 mg/dL AO ADM SS Comment on above: Interpretive Data: C holesterol Reference Interval: Less than 200 Desirable 200-239 Borderline high risk 240 and above High risk Cholesterol in HDL [Mass/Vol] 50 mg/dL Normal 40 - 60 mg/dL AO ADM SS Cholesterol in LDL [Mass/Vol] 124 mg/dL Normal 0 - 130 mg/dL AO ADM SS Triglyceride [Mass/Vol] 161 mg/dL High 0 - 150 mg/dL AO ADM SS Comment on above: Interpretive Data: T riglyceride Reference Interval: Less than 150 Normal 150-199 Borderline high risk 200-499 High risk 500 or higher Very high risk LABORATORYOrdered By: SYSTEM SYSTEM on 12-20-2022 Albumin BCP dye [Mass/Vol] 4.2 G/dL Invalid Interpretation Code 3.5 - 5.0 G/dL AO ADM SS Albumin/Globulin [Mass ratio] 1.4 {ratio} Invalid Interpretation Code 1.1 - 2.5 ratio AO ADM SS ALP [Catalytic activity/Vol] 96 U/L Invalid Interpretation Code 40 - 135 U/L AO ADM SS ALT With P-5'-P [Catalytic activity/Vol] 42 U/L Invalid Interpretation Code 16 - 63 U/L AO ADM SS AST With P-5'-P [Catalytic activity/Vol] 23 U/L Invalid Interpretation Code 10 - 40 U/L AO ADM SS Bilirubin [Mass/Vol] 0.8 mg/dL Invalid Interpretation Code 0.2 - 1.0 mg/dL AO ADM SS Comment on above: Interpretive Data: U se of this assay is not recommended for patients undergoing treatment with eltrombopag due to the potential for falsely elevated results. Calcium [Mass/Vol] 9.6 mg/dL Invalid Interpretation Code 8.4 - 10.2 mg/dL AO ADM SS Chloride [Moles/Vol] 101 mmol/L Invalid Interpretation Code 98 - 107 mmol/L AO ADM SS CO2 [Moles/Vol] 32 mmol/L Invalid Interpretation Code 22 - 29 mmol/L AO ADM SS Creatinine [Mass/Vol] 0.89 mg/dL Invalid Interpretation Code 0.70 - 1.30 mg/dL AO ADM SS Electrolyte Balance 12.0 mEq/L Invalid Interpretation Code 4.0 - 15.0 mEq/L AO ADM SS GFR/1.73 sq M.predicted among blacks MDRD (S/P/Bld) [Vol rate/Area] 107 ml/min/1.73sqm Invalid Interpretation Code AO Chemistry S Comment on above: Interpretive Data: GFR Population mean for , Non- Americans Ages 20-29 = 116 mL/min/1.73 sq.m. Ages 30-39 = 107 mL/min/1.73 sq.m. Ages 40-49 = 99 mL/min/1.73 sq.m. Ages 50-59 = 93 mL/min/1.73 sq.m. Ages 60-69 = 85 mL/min/1.73 sq.m. Ages 70+ = 75 mL/min/1.73 sq.m. Chronic Kidney Disease: Less than 60 mL/min/1.73 square meters End Stage Renal Disease: Less than 15 mL/min/1.73 square meters GFR/1.73 sq M.predicted among non-blacks MDRD (S/P/Bld) [Vol rate/Area] 88 ml/min/1.73sqm Invalid Interpretation Code AO Chemistry S Comment on above: Interpretive Data: GFR Population mean for , Non- Americans Ages 20-29 = 116 mL/min/1.73 sq.m. Ages 30-39 = 107 mL/min/1.73 sq.m. Ages 40-49 = 99 mL/min/1.73 sq.m. Ages 50-59 = 93 mL/min/1.73 sq.m. Ages 60-69 = 85 mL/min/1.73 sq.m. Ages 70+ = 75 mL/min/1.73 sq.m. Chronic Kidney Disease: Less than 60 mL/min/1.73 square meters End Stage Renal Disease: Less than 15 mL/min/1.73 square meters Globulin 3.0 G/dL Invalid Interpretation Code AO ADM SS Glucose [Mass/Vol] 113 mg/dL Invalid Interpretation Code 70 - 105 mg/dL AO ADM SS HbA1c (Bld) [Mass fraction] 5.9 % Invalid Interpretation Code 4.3 - 6.4 % AO ADM SS Potassium [Moles/Vol] 4.5 mmol/L Invalid Interpretation Code 3.5 - 5.1 mmol/L AO ADM SS Prostate specific Ag [Mass/Vol] 0.41 ng/mL Invalid Interpretation Code 0.00 - 4.00 ng/mL AO ADM SS Protein [Mass/Vol] 7.2 G/dL Invalid Interpretation Code 6.4 - 8.2 G/dL AO ADM SS Sodium [Moles/Vol] 145 mmol/L Invalid Interpretation Code 136 - 145 mmol/L AO ADM SS Urea nitrogen [Mass/Vol] 14 mg/dL Invalid Interpretation Code 7 - 18 mg/dL AO ADM SS Urea nitrogen/Creatinine [Mass ratio] 16 ratio Invalid Interpretation Code 7 - 27 ratio AO ADM SS LABORATORYOrdered By: Swetha Hughes on 12-20-2022 Albumin DL <= 20 mg/L (U) [Mass/Vol] 704 mcg/dL Invalid Interpretation Code AO ADM SS Albumin/Creatinine DL <= 20 mg/L (U) [Mass ratio] 5 mcg/mg Invalid Interpretation Code 0 - 30 mcg/mg AO ADM SS Cholesterol [Mass/Vol] 199 mg/dL Invalid Interpretation Code 0 - 200 mg/dL AO ADM SS Comment on above: Interpretive Data: C holesterol Reference Interval: Less than 200 Desirable 200-239 Borderline high risk 240 and above High risk Cholesterol in HDL [Mass/Vol] 51 mg/dL Invalid Interpretation Code 40 - 60 mg/dL AO ADM SS Cholesterol in LDL [Mass/Vol] 119 mg/dL Invalid Interpretation Code 0 - 130 mg/dL AO ADM SS Creatinine (U) [Mass/Vol] 141.1 mg/dL Invalid Interpretation Code 39.0 - 259.0 mg/dL AO ADM SS Triglyceride [Mass/Vol] 146 mg/dL Invalid Interpretation Code 0 - 150 mg/dL AO ADM SS Comment on above: Interpretive Data: T riglyceride Reference Interval: Less than 150 Normal 150-199 Borderline high risk 200-499 High risk 500 or higher Very high risk Stress Reporton 11-12-2022 Stress Report [facility] Cardiovascular Services [address] [place] [address] MR#: [id number] Acct: [id number] Name: MARTÍNEZ VALDIVIA Rep #: [id number] : 1965 57 From: Christopher Wells MD Primary Care: Archana Reyes, CUT OUT OPERATOR-C Status: REG CLI Referring Dr: Christopher Wells MD Sex: M C Stress Test Report Pharmacologic myocardial perfusion stress test. 57-year-old man with a history of elevated calcium score Resting EKG demonstrates sinus rhythm with a rate of 83 bpm. Resting blood pressure is 152/84 mmHg. 0.4 mg of regadenoson was infused per usual protocol followed by rapid intravenous saline flush injection. Continuous EKG monitoring was performed. The maximum heart rate was 107 bpm which was 65% of max impacted heart rate the maximum workload was 1 metabolic equivalent. At rest there were no ST or T wave changes noted to suggest ischemia and at peak infusion nonspecific ST changes were noted which did not meet the criteria for ischemia. No clinical angina is noted. The final blood pressure was 148/80 mmHg. Myocardial perfusion protocol. 14.7 mCi of technetium 99m sestamibi was injected at rest. 0.4 mg of regadenoson was infused per usual protocol. At peak infusion 44.8 mCi of technetium 99m sestamibi was injected stress images were obtained stress and rest images were reconstructed and compared in the short axis vertical long and horizontal long axis. Gated images were also obtained. Perfusion SPECT analysis: Review of the stress images demonstrate normal uptake of tracer noted in all areas of the myocardium. The resting images similar demonstrated normal uptake of tracer noted in all areas of the myocardium. No areas of reversibility are noted to suggest ischemia and no previous infarct is noted. Gated SPECT analysis: The gated ejection fraction is 70%. Conclusion: Normal pharmacologic myocardial perfusion stress test. Preserved ejection fraction. 11/12/22 1013 Date Christopher Welsl MD CC: NANCY Reyes; Dr. Christopher Wells MD Date Dictated: 11/12/22 1009 Date Transcribed: 11/12/22 100 Catalogue Clerk: CO Signed [facility] Coronary Angiography CTon Coronary Angiography [facility] Imaging Services [address] [place] [address] 10/17/22 1316 MR#: [id number] Acct: [id number] Name: MARTÍNEZ VALDIVIA Rep #: [id number] : 1965 57 From: Christopher Wells MD PCP: NANCY Richards Status:REG CLI Y Location: CT Calcium Scoring Date of Study:: 10/17/22 Indications Indications: Family history and hypertension Coronary Calcium Scoring: High-resolution Computed Tomographic imaging of the chest was performed on [10/17/22 ], with particular attention paid to the coronary arteries. Images from the examination were analyzed for the presence and extent of coronary artery calcification , using coronary calcium quantification software. The patient tolerated the procedure well and there were no complications. The results of the coronary calcification analysis are provided below. Findings Coronary Artery Left Main (LM): 203 Left Anterior Descending (LAD): 134 Left Circumflex (LCX): 61 Right Coronary Artery (RCA): 4.77 Total Agatston Score: 402.77 Percentile Rankin-90% Calcium Scoring Interpretation: Different methods to categorize the overall amount of coronary plaque. Overall amount CAC SIS Visual of coronary plaque P1 Mild -100 <2 1-2 vessels with mild amount of plaque P2 Moderate 101-300 3-4 1-2 vessels with moderate amount, 3 vessels with mild amount of plaque P3 Severe 301-999 5-7 3 vessels with moderate amount, 1 vessel with severe amount of plaque P4 Extensive >1000 >8 2-3 vessels with severe amount of plaque Calcium Score: Severe: 3 vessels w/moderate amount, 1 vessel w/severe amt of plaque Conclusion: Probably moderate amount of atherosclerotic plaquing. 10/17/22 1318 Date Christopher Wells MD Cosigner Signature (if applicable): Date CC: CUT OUT OPERATOR-C Archana Reyes; Dr. Christopher Wells MD Signed [facility] Limited Chest CT Cardiac Onl [facility] 10-17-[address] Cardiac Only [facility] Imaging Services [address] [place] [address] Cardiac Only MR#: [id number] Acct: [id number] Name: MARTÍNEZ VALDIVIA Rep #: [id number] : 1965 M 57 From: Garrett rice MD PCP: Archana Reyes, CUT OUT OPERATOR-C Status: REG CLI Study: Limited Chest CT Cardiac Only Date of Exam: Exam# [id number] Ordering Dr: Christopher Wells MD STUDY: CT CHEST WITHOUT CONTRAST REASON FOR EXAM: Male, 57 years old. HTN RADIATION DOSAGE (If Supplied By Facility): CTDIvol = ( 12.19 ) mGy, DLP = ( 195.04 ) mGycm TECHNIQUE: Transaxial imaging was performed without the administration of intravenous contrast material. Cardiac over read examination. Individualized dose optimization techniques were used for this CT. COMPARISON: No relevant priors. FINDINGS: CHEST The lungs are normal. There is no demonstrated pleural abnormality. There are calcifications of the coronary arteries. There are multiple small lymph nodes within the mediastinum, which are normal in size and morphology most compatible with reactive lymph hyperplasia. Normal hilar regions. Normal unenhanced pulmonary arteries. Normal aorta arch and descending thoracic aorta. There are degenerative changes of the thoracic spine. Diffuse fatty infiltration of the liver. Small hiatal hernia. CT/Limited Chest CT Cardiac Only IMPRESSION: Coronary artery calcification. Diffuse fatty infiltration of the liver. Electronically Signed: Garrett Hollingsworth MD at 8:40 EDT Reading Location ID and State: [facility] / [place] , Service support , CC: NANCY Reyes; Dr. Christopher Wells MD Catalogue Clerk: Signed [facility] Cardiology Visit Reporton Cardiology Visit Report [facility] [address] [place] [address] OFFICE VISIT Date of Service: 09/06/22 MR#: [id number] Acct: [id number] Name: MARTÍNEZ VALDIVIA Rep #: [id number] : 1965 Provider: Dr. Christopher Wells MD Age/Sex: 57/M Location: [facility] Status: Signed [facility] History of Present Illness Details: MARTÍNEZ VALDIVIA, is a 57 M who presents to the office today for a follow-up visit. You do remember he underwent evaluation for coronary anatomy and underwent a cardiac catheterization 2015 which demonstrated essentially normal coronary arteries and preserved left ventricular ejection fraction. He had previously undergone radiofrequency ablation for supraventricular tachycardia and has not had any further symptomatology. He is concerned about his family history. He denies chest, arm, jaw, or neck discomfort. He denies symptoms of shortness of breath with exertion, shortness of breath at rest, orthopnea, PND, sudden weight gain, or bilateral lower extremity edema. He denies chronic cough. He denies palpitations, lightheadedness, dizziness, near syncope, or syncopal episodes. He denies claudication issues. He denies fever or chills. He denies blood in urine, blood in stool, or epistaxis. He denies myalgia. He denies unexplainable fatigue. His exercise tolerance is stable. 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 Accompanied by: None Is patient in pain?: No Allergies No Known Allergies Allergy (Verified 09/06/22 16:09) Medications aspirin 81 mg chewable tablet 81 mg PO DAILY@0800 06/24/15 [History Confirmed 09/06/22] amlodipine 5 mg tablet 5 mg PO QHS 08/09/20 [History Confirmed 09/06/22] atorvastatin 40 mg tablet 40 mg PO QHS 08/09/20 [History Confirmed 09/06/22] ascorbic acid (vitamin C) 500 mg capsule mg PO 08/09/21 [History Confirmed 08/09/21] cholecalciferol (vitamin D3) 50 mcg (2,000 unit) capsule 50 mcg PO DAILY 08/09/21 [History Confirmed 08/09/21] zinc acetate 50 mg (zinc) capsule (Galzin) 50 mg PO DAILY 08/09/21 [History Confirmed 08/09/21] hydrochlorothiazide 12.5 mg tablet 12.5 mg PO DAILY 09/06/22 [History Confirmed 09/06/22] losartan 100 mg tablet 100 mg PO DAILY 09/06/22 [History Confirmed 09/06/22] Ejection fraction %: 60 to 64 PFSH Medical History Essential (primary) hypertension GERD (gastroesophageal reflux disease) Hyperlipidemia Obesity Premature atrial contractions Supraventricular tachycardia Surgical History History of cardiac radiofrequency ablation (RFA) (05/25/16) History of left heart catheterization (06/27/15) Family History Father , Age 54 of CAD (AR age 49) Myocardial infarction CAD (coronary artery disease), Onset Age: 49 CABG Brother CAD (coronary artery disease), Onset Age: 49 Stented coronary artery Social History Smoking Status: Former smoker how long ago did patient quit smokin alcohol intake: current alcohol intake frequency: a few times a week Alcohol type: beer substance use type: does not use caffeine: Yes Type: carbonated beverages what type of physical activity do you participate in: none seatbelt use: always do you feel safe at home: Yes ROS Const Const: Negative for fatigue, weakness, headache(s), frequent falls, difficulty sleeping or excessive sweating Eyes Eyes: Negative for loss of peripheral vision, transient loss of vision, blurry vision, double vision or tunnel vision ENT ENT: Negative for headache(s), dizziness, Nosebleed/epistaxis or balance problems Cardio Chest Pain: No Palpitations: No Edema: Bilateral Muscle aches with walking: None Resp Respiratory: Negative for SOB with activity, SOB at rest, SOB orthopnea SOB lying down, Cough or paroxysmal nocturnal dyspnea GI GI: Negative nausea, vomiting or heartburn : Negative for hematuria Musc Musc: Negative for muscle aches/ myalgia, muscle weakness, joint pain or balance problems Skin Skin: Negative non-healing lesions, rash or unusual bruising Neuro Neuro: Negative for dizziness, lightheadedness, near syncope, syncope, orthostatic symptoms, frequent falls, headache(s), weakness, confusion, memory loss, blurry vision, double vision, vertigo or lack of coordination Bhargav Hematologic/Lymphatic: Negative for easy bleeding or easy bruising Endo Endo: Negative for fatigue, excessive sweating, flushing or (more content not included)... [facility] LABORATORYOrdered By: SYSTEM SYSTEM on 06-14-2022 Albumin BCP dye [Mass/Vol] 4.1 G/dL Invalid Interpretation Code 3.5 - 5.0 G/dL AO ADM SS Albumin/Globulin [Mass ratio] 1.3 {ratio} Invalid Interpretation Code 1.1 - 2.5 ratio AO ADM SS ALP [Catalytic activity/Vol] 107 U/L Invalid Interpretation Code 40 - 135 U/L AO ADM SS ALT With P-5'-P [Catalytic activity/Vol] 59 U/L Invalid Interpretation Code 16 - 63 U/L AO ADM SS AST With P-5'-P [Catalytic activity/Vol] 38 U/L Invalid Interpretation Code 10 - 40 U/L AO ADM SS Bilirubin [Mass/Vol] 1.0 mg/dL Invalid Interpretation Code 0.2 - 1.0 mg/dL AO ADM SS Calcium [Mass/Vol] 9.3 mg/dL Invalid Interpretation Code 8.4 - 10.2 mg/dL AO ADM SS Chloride [Moles/Vol] 102 mmol/L Invalid Interpretation Code 98 - 107 mmol/L AO ADM SS CO2 [Moles/Vol] 32 mmol/L Invalid Interpretation Code 22 - 29 mmol/L AO ADM SS Creatinine [Mass/Vol] 0.83 mg/dL Invalid Interpretation Code 0.70 - 1.30 mg/dL AO ADM SS Electrolyte Balance 9.0 mEq/L Invalid Interpretation Code 4.0 - 15.0 mEq/L AO ADM SS GFR 116 ml/min/1.73sqm Invalid Interpretation Code AO Chemistry S GFR Non- 96 ml/min/1.73sqm Invalid Interpretation Code AO Chemistry S Globulin 3.1 G/dL Invalid Interpretation Code AO ADM SS Glucose [Mass/Vol] 112 mg/dL Invalid Interpretation Code 70 - 105 mg/dL AO ADM SS HbA1c (Bld) [Mass fraction] 5.7 % Invalid Interpretation Code 4.3 - 6.4 % AO ADM SS Potassium [Moles/Vol] 4.2 mmol/L Invalid Interpretation Code 3.5 - 5.1 mmol/L AO ADM SS Protein [Mass/Vol] 7.2 G/dL Invalid Interpretation Code 6.4 - 8.2 G/dL AO ADM SS Sodium [Moles/Vol] 143 mmol/L Invalid Interpretation Code 136 - 145 mmol/L AO ADM SS Urea nitrogen [Mass/Vol] 13 mg/dL Invalid Interpretation Code 7 - 18 mg/dL AO ADM SS Urea nitrogen/Creatinine [Mass ratio] 16 ratio Invalid Interpretation Code 7 - 27 ratio AO ADM SS LABORATORYOrdered By: Swetha Hughes on 06-14-2022 Cholesterol [Mass/Vol] 201 mg/dL Invalid Interpretation Code 0 - 200 mg/dL AO ADM SS Cholesterol in HDL [Mass/Vol] 57 mg/dL Invalid Interpretation Code 40 - 60 mg/dL AO ADM SS Cholesterol in LDL [Mass/Vol] 115 mg/dL Invalid Interpretation Code 0 - 130 mg/dL AO ADM SS Triglyceride [Mass/Vol] 144 mg/dL Invalid Interpretation Code 0 - 150 mg/dL AO ADM SS LABORATORYOrdered By: Swetha Hughes on 11-02-2021 Albumin BCP dye [Mass/Vol] 4.5 G/dL Invalid Interpretation Code 3.5 - 5.0 G/dL AO ADM SS Albumin/Globulin [Mass ratio] 1.8 {ratio} Invalid Interpretation Code 1.1 - 2.5 ratio AO ADM SS ALP [Catalytic activity/Vol] 108 U/L Invalid Interpretation Code 40 - 135 U/L AO ADM SS ALT With P-5'-P [Catalytic activity/Vol] 51 U/L Invalid Interpretation Code 16 - 63 U/L AO ADM SS AST With P-5'-P [Catalytic activity/Vol] 34 U/L Invalid Interpretation Code 10 - 40 U/L AO ADM SS Bilirubin [Mass/Vol] 1.3 mg/dL Invalid Interpretation Code 0.2 - 1.0 mg/dL AO ADM SS Calcium [Mass/Vol] 9.6 mg/dL Invalid Interpretation Code 8.4 - 10.2 mg/dL AO ADM SS Chloride [Moles/Vol] 101 mmol/L Invalid Interpretation Code 98 - 107 mmol/L AO ADM SS Cholesterol [Mass/Vol] 186 mg/dL Invalid Interpretation Code 0 - 200 mg/dL AO ADM SS Cholesterol in HDL [Mass/Vol] 59 mg/dL Invalid Interpretation Code 40 - 60 mg/dL AO ADM SS Cholesterol in LDL [Mass/Vol] 111 mg/dL Invalid Interpretation Code 0 - 130 mg/dL AO ADM SS CO2 [Moles/Vol] 29 mmol/L Invalid Interpretation Code 22 - 29 mmol/L AO ADM SS Creatinine [Mass/Vol] 0.90 mg/dL Invalid Interpretation Code 0.70 - 1.30 mg/dL AO ADM SS Electrolyte Balance 9.0 mEq/L Invalid Interpretation Code 4.0 - 15.0 mEq/L AO ADM SS Globulin 2.5 G/dL Invalid Interpretation Code AO ADM SS Glucose [Mass/Vol] 106 mg/dL Invalid Interpretation Code 70 - 105 mg/dL AO ADM SS Potassium [Moles/Vol] 4.1 mmol/L Invalid Interpretation Code 3.5 - 5.1 mmol/L AO ADM SS Prostate specific Ag [Mass/Vol] 0.33 ng/mL Invalid Interpretation Code 0.00 - 4.00 ng/mL AO ADM SS Protein [Mass/Vol] 7.0 G/dL Invalid Interpretation Code 6.4 - 8.2 G/dL AO ADM SS Sodium [Moles/Vol] 139 mmol/L Invalid Interpretation Code 136 - 145 mmol/L AO ADM SS Triglyceride [Mass/Vol] 78 mg/dL Invalid Interpretation Code 0 - 150 mg/dL AO ADM SS Urea nitrogen [Mass/Vol] 13 mg/dL Invalid Interpretation Code 7 - 18 mg/dL AO ADM SS Urea nitrogen/Creatinine [Mass ratio] 14 ratio Invalid Interpretation Code 7 - 27 ratio AO ADM SS LABORATORYOrdered By: Swetha Conrad on 11-02-2021 Basophil, Absolute 0.1 103/mcL Invalid Interpretation Code 0.0 - 0.2 10^3/mcL AO Workflow SS Basophils/100 WBC (Bld) 1.1 % Invalid Interpretation Code 0.0 - 2.5 % AO Workflow SS Eosinophil, Absolute 0.2 103/mcL Invalid Interpretation Code 0.0 - 0.4 10^3/mcL AO Workflow SS Eosinophils/100 WBC (Bld) 4.1 % Invalid Interpretation Code 0.0 - 7.0 % AO Workflow SS Erythrocyte distribution width (RBC) [Ratio] 13.5 % Invalid Interpretation Code 11.5 - 14.5 % AO Workflow SS Hematocrit (Bld) [Volume fraction] 45.0 % Invalid Interpretation Code 42.0 - 52.0 % AO Workflow SS Hemoglobin (Bld) [Mass/Vol] 15.2 G/dL Invalid Interpretation Code 14.0 - 18.0 G/dL AO Workflow SS Lymphocyte, Absolute 1.6 103/mcL Invalid Interpretation Code 0.8 - 3.9 10^3/mcL AO Workflow SS Lymphocytes/100 WBC (Bld) 27.8 % Invalid Interpretation Code 10.0 - 50.0 % AO Workflow SS MCH (RBC) [Entitic mass] 31.0 pg Invalid Interpretation Code 27.0 - 31.2 pg AO Workflow SS MCHC 33.9 G/dL Invalid Interpretation Code 31.8 - 35.4 G/dL AO Workflow SS MCV (RBC) [Entitic vol] 91.5 fL Invalid Interpretation Code 80.0 - 94.0 fL AO Workflow SS Monocyte, Absolute 0.6 103/mcL Invalid Interpretation Code 0.2 - 1.0 10^3/mcL AO Workflow SS Monocytes/100 WBC (Bld) 9.9 % Invalid Interpretation Code 1.7 - 13.0 % AO Workflow SS Neutrophil, Absolute 3.2 103/mcL Invalid Interpretation Code 2.9 - 6.2 10^3/mcL AO Workflow SS Neutrophils/100 WBC (Bld) 57.1 % Invalid Interpretation Code 37.0 - 80.0 % AO Workflow SS Platelet mean volume (Bld) [Entitic vol] 8.2 fL Invalid Interpretation Code 7.4 - 10.4 fL AO Workflow SS Platelets (Bld) [#/Vol] 168 103/mcL Invalid Interpretation Code 130 - 400 10^3/mcL AO Workflow SS RBC (Bld) [#/Vol] 4.92 106/mcL Invalid Interpretation Code 4.04 - 6.13 10^6/mcL AO Workflow SS WBC 5.6 103/mcL Invalid Interpretation Code 4.6 - 10.8 10^3/mcL AO Workflow SS LABORATORYOrdered By: SYSTEM SYSTEM on 11-02-2021 GFR 106 ml/min/1.73sqm Invalid Interpretation Code AO Chemistry S GFR Non- 88 ml/min/1.73sqm Invalid Interpretation Code AO Chemistry S Monocyte distribution width Auto (Bld) [Entitic vol] Not Performed 1 *NA* (11/02/21 9:28 AM) Invalid Interpretation Code 0.00 - 20.00 AO Hematology S Comment on above: Result Comment: MDW testing performed only on adult ER patients between the ages of 18-89 years. LABORATORYOrdered By: Alison Valdivia on 05-11-2021 Albumin BCP dye [Mass/Vol] 4.3 G/dL Invalid Interpretation Code 3.5 - 5.0 G/dL AO ADM SS Albumin/Globulin [Mass ratio] 1.4 {ratio} Invalid Interpretation Code 1.1 - 2.5 ratio AO ADM SS ALP [Catalytic activity/Vol] 127 U/L Invalid Interpretation Code 40 - 135 U/L AO ADM SS ALT With P-5'-P [Catalytic activity/Vol] 80 U/L Invalid Interpretation Code 16 - 63 U/L AO ADM SS AST With P-5'-P [Catalytic activity/Vol] 38 U/L Invalid Interpretation Code 10 - 40 U/L AO ADM SS Bilirubin [Mass/Vol] 0.9 mg/dL Invalid Interpretation Code 0.2 - 1.0 mg/dL AO ADM SS Calcium [Mass/Vol] 9.7 mg/dL Invalid Interpretation Code 8.4 - 10.2 mg/dL AO ADM SS Chloride [Moles/Vol] 99 mmol/L Invalid Interpretation Code 98 - 107 mmol/L AO ADM SS Cholesterol [Mass/Vol] 204 mg/dL Invalid Interpretation Code 0 - 200 mg/dL AO ADM SS Cholesterol in HDL [Mass/Vol] 51 mg/dL Invalid Interpretation Code 40 - 60 mg/dL AO ADM SS Cholesterol in LDL [Mass/Vol] 125 mg/dL Invalid Interpretation Code 0 - 130 mg/dL AO ADM SS CO2 [Moles/Vol] 29 mmol/L Invalid Interpretation Code 22 - 29 mmol/L AO ADM SS Creatinine [Mass/Vol] 0.76 mg/dL Invalid Interpretation Code 0.70 - 1.30 mg/dL AO ADM SS Electrolyte Balance 10.0 mEq/L Invalid Interpretation Code AO ADM SS Globulin 3.1 G/dL Invalid Interpretation Code AO ADM SS Glucose [Mass/Vol] 99 mg/dL Invalid Interpretation Code 70 - 105 mg/dL AO ADM SS Potassium [Moles/Vol] 4.2 mmol/L Invalid Interpretation Code 3.5 - 5.1 mmol/L AO ADM SS Protein [Mass/Vol] 7.4 G/dL Invalid Interpretation Code 6.4 - 8.2 G/dL AO ADM SS Sodium [Moles/Vol] 138 mmol/L Invalid Interpretation Code 136 - 145 mmol/L AO ADM SS Triglyceride [Mass/Vol] 139 mg/dL Invalid Interpretation Code 0 - 150 mg/dL AO ADM SS Urea nitrogen [Mass/Vol] 14 mg/dL Invalid Interpretation Code 7 - 18 mg/dL AO ADM SS Urea nitrogen/Creatinine [Mass ratio] 18 ratio Invalid Interpretation Code 7 - 27 ratio AO ADM SS LABORATORYOrdered By: Jeana Shi on 05-11-2021 Basophil, Absolute 0.00 103/mcL Invalid Interpretation Code 0.00 - 0.19 10^3/mcL AO Auto Heme SS Basophils/100 WBC (Bld) 0.6 % Invalid Interpretation Code 0.0 - 2.5 % AO Auto Heme SS Eosinophil, Absolute 0.30 103/mcL Invalid Interpretation Code 0.00 - 0.40 10^3/mcL AO Auto Heme SS Eosinophils/100 WBC (Bld) 4.3 % Invalid Interpretation Code 0.0 - 7.0 % AO Auto Heme SS Erythrocyte distribution width (RBC) [Ratio] 13.5 % Invalid Interpretation Code 11.5 - 14.5 % AO Auto Heme SS Hematocrit (Bld) [Volume fraction] 43.6 % Invalid Interpretation Code 42.0 - 52.0 % AO Auto Heme SS Hemoglobin (Bld) [Mass/Vol] 14.9 G/dL Invalid Interpretation Code 14.0 - 18.0 G/dL AO Auto Heme SS Lymphocyte, Absolute 1.70 103/mcL Invalid Interpretation Code 0.77 - 3.85 10^3/mcL AO Auto Heme SS Lymphocytes/100 WBC (Bld) 23.9 % Invalid Interpretation Code 10.0 - 50.0 % AO Auto Heme SS MCH (RBC) [Entitic mass] 30.7 pg Invalid Interpretation Code 27.0 - 31.2 pg AO Auto Heme SS MCHC (RBC) [Mass/Vol] 34.1 G/dL Invalid Interpretation Code 31.8 - 35.4 G/dL AO Auto Heme SS MCV (RBC) [Entitic vol] 90.0 fL Invalid Interpretation Code 80.0 - 94.0 fL AO Auto Heme SS Monocyte, Absolute 0.60 103/mcL Invalid Interpretation Code 0.15 - 1.00 10^3/mcL AO Auto Heme SS Monocytes/100 WBC (Bld) 8.7 % Invalid Interpretation Code 1.7 - 13.0 % AO Auto Heme SS Neutrophil, Absolute 4.60 103/mcL Invalid Interpretation Code 2.85 - 6.16 10^3/mcL AO Auto Heme SS Neutrophils/100 WBC (Bld) 62.5 % Invalid Interpretation Code 37.0 - 80.0 % AO Auto Heme SS Platelet mean volume (Bld) [Entitic vol] 8.0 fL Invalid Interpretation Code 7.4 - 10.4 fL AO Auto Heme SS Platelets (Bld) [#/Vol] 207 103/mcL Invalid Interpretation Code 130 - 400 10^3/mcL AO Auto Heme SS RBC (Bld) [#/Vol] 4.84 106/mcL Invalid Interpretation Code 4.04 - 6.13 10^6/mcL AO Auto Heme SS WBC (Bld) [#/Vol] 7.30 103/mcL Invalid Interpretation Code 4.60 - 10.80 10^3/mcL AO Auto Heme SS LABORATORYOrdered By: SYSTEM SYSTEM on 05-11-2021 GFR 129 ml/min/1.73sqm Invalid Interpretation Code AO Chemistry S GFR Non- 106 ml/min/1.73sqm Invalid Interpretation Code AO Chemistry S HISTORY PHYSICALon HISTORY PHYSICAL HNO ID: [id number] Author: Archana Smith MD Service: General Surgery Author Type: Physician Type: HANDP Filed: 10/11/2020 11:23 AM Note Text: HISTORY AND PHYSICAL ? Martínez Hailey Bandar 1965 ? REFERRING PHYSICIAN: Self, ? CHIEF COMPLAINT: Consult (Colonoscopy) ? HPI: The patient is a 55 year old male referred for endoscopy. Martínez notes no . Patient denies any change in bowel habits, weight changes, blood in stools, black tarry stools or abdominal pain. Denies family history of colon issues. ? The patient notes no upper GI complaints. ? Martínez has undergone prior endoscopy. Last colonoscopy 07/05/[address] Simth with removal of a small tubular adenoma at that time. ? Patient denies chest pain, shortness of breath or recent hospitalizations. Denies problems with sedation in the past. ? ? PAST MEDICAL HISTORY PAST MEDICAL HISTORY Diagnosis Date - Diarrhea ? - Esophagitis ? - Gallbladder disease ? - Hypertension ? - Internal hemorrhoids without mention of complication ? - Irritable bowel syndrome ? - Other specified gastritis ? - PMH - PAST MEDICAL HISTORY OF ? ? anal pain - Pure hypercholesterolemia ? ? ? PAST SURGICAL HISTORY PAST SURGICAL HISTORY Procedure Laterality Date - ABLATE HEART DYSRHYTHM ? 2017 - COLONOS W/REM POLYP SNARE ? 07/05/2015 ? transverse colon adenomatous poylp - 5 year follow up - COLONOSCOP W/ OR W/O BRSH SPEC ? 12/27/00 ? Colonoscopy - EGD W/O OR W/BRUSH/WASH ? 07/18/04 ? EGD - EGD W/O OR W/BRUSH/WASH ? 08/26/2018 ? EGD - HEART CATHETERIZATION ? 2016 - LAPAROSCOPIC CHOLEYCYSTECTOMY ? 08/21/2017 ? Cholecystectomy, lap - SIGMOIDOSCOPY FLEX DIAG ? 07/26/11 ? ? ? CURRENT MEDICATIONS Current Outpatient Medications Medication Sig - hydroCHLOROthiazide oral liquid 5 mg/mL (CPD) Take by mouth twice daily. - aspirin, enteric coated (ASPIRIN, ENTERIC COATED) 81 mg EC tablet Take 81 mg by mouth once daily. - atorvastatin (LIPITOR) 20 mg tablet 1 tablet once daily. - losartan (COZAAR) 25 mg tablet 1 tablet once daily. - omeprazole (PRILOSEC) 20 mg capsule Take 2 capsules by mouth once daily. - omeprazole (PRILOSEC) 20 mg capsule Take 20 mg by mouth as needed. ? - hydrocortisone (ANUSOL-HC) 25 mg RECTAL suppository 1 Suppository by RECTAL route daily at bedtime. INSERT (1) RECTALLY AT BEDTIME ? No current facility-administered medications for this visit. ? ? ALLERGIES: Patient has no known allergies. ? PERSONAL HISTORY: SOCIAL HISTORY Social History ? Tobacco Use - Smoking status: Former Smoker ? ? Packs/day: 1.50 ? ? Years: 20.00 ? ? Pack years: 30.00 ? ? Quit date: 08/20/2003 ? ? Years since quittin.0 - Smokeless tobacco: Never Used Substance Use Topics - Alcohol use: Yes ? ? Comment: occasional - social - Drug use: No ? FAMILY HISTORY: FAMILY HISTORY FAMILY HISTORY Problem Relation Age of Onset - Heart Father ? ? ? REVIEW OF SYMPTOMS: The review of systems data was entered by the nurse and reviewed by me ? Nursing Notes: Aurora Quiñones LPN 09/13/2020 4:54 PM Signed REVIEW OF SYSTEMS: General: The patient denies fatigue, denies weight loss, denies weight gain, denies feeling hot, and denies feelings of cold. Eyes: The patient denies glaucoma, denies eye injury/surgery, wears glasses or contacts. Ear/Nose/Throat: The patient denies allergies, denies hayfever, denies ear infections, and denies bloody noses. Cardiovascular: The patient denies chest pain, denies heart disease, NOTES high blood pressure,denies cardiac stent, denies prior heart attack, denies irregular heart beat, NOTES high cholesterol, denies poor circulation, denies heart failure, other cardiac issues, denies claudication, denies cold feet, denies peripheral arterial stent. Respiratory: The patient denies tuberculosis, denies pneumonia, denies frequent cough, denies pulmonary embolism, denies shortness of breath, and denies coughing up blood. Gastrointestinal: The patient denies difficulty swallowing, denies acid reflux, denies ulcers, denies vomiting, denies jaundice/hepatitis, denies gallbladder problems, denies black or tarry stools, denies hemorrhoids, denies bleeding from rectum, denies diverticulitis, denies constipation, denies diarrhea, denies loss of stool control, and denies hernias. Kidney/Bladder: The patient denies kidney stones, denies urine infections, and denies bloody urine. Skin: The patient denies a history of skin cancer, denies bleeding/changing moles, and denies a history of skin rash. Neurologic: The patient denies a history of epilepsy/convulsions, denies headaches, denies head/spinal injuries, and denies stroke/TIA. Psychiatric: The patient denies psychiatric medications, denies depression, and denies voices, denies substance abuse. Endocrine: The patient denies thyroid disorders, denies diabetes, and denies hormonal problems. (more content not included)... Normal [facility] NURSING PROGon 10-11-2020 NURSING PROG HNO ID: [id number] Author: Magda Hameed RN Service: Nursing Author Type: Registered Nurse Type: Nursing Progress Note Filed: 10/11/2020 1:09 PM Note Text: Dr. Smith at the bedside with the patient to discus colonoscopy findings and recommendations. Magda Hameed RN [facility] NURSING PROG HNO ID: [id number] Author: Diana Sheehan RN Service: ? Author Type: Registered Nurse Type: Nursing Progress Note Filed: 10/11/2020 12:27 PM Note Text: [facility] PRE-OP NURSING HAND OFF NOTE SBAR Hand off given to Rayna Olivarez RN. Hand off was communicated verbally and at the patient's bedside and all questions were answered. Diana Sheehan RN [facility] CNOVon 09-13-2020 CNOV Office Visit (GENSWS ) MARTÍNEZ VALDIVIA ([id number]) 1965 M Date Time Provider Department 09/13/20 4:10 PM ALISON MORTON During your visit today, we recorded the following information about you: Temperature Pulse Blood pressure Weight 97.9 degrees 95/minute 142/78 120.2 kg Height 1.778 m Aurora Quiñones LPN 09/13/2020 4:54 PM Signed REVIEW OF SYSTEMS: General: The patient denies fatigue, denies weight loss, denies weight gain, denies feeling hot, and denies feelings of cold. Eyes: The patient denies glaucoma, denies eye injury/surgery, wears glasses or contacts. Ear/Nose/Throat: The patient denies allergies, denies hayfever, denies ear infections, and denies bloody noses. Cardiovascular: The patient denies chest pain, denies heart disease, NOTES high blood pressure,denies cardiac stent, denies prior heart attack, denies irregular heart beat, NOTES high cholesterol, denies poor circulation, denies heart failure, other cardiac issues, denies claudication, denies cold feet, denies peripheral arterial stent. Respiratory: The patient denies tuberculosis, denies pneumonia, denies frequent cough, denies pulmonary embolism, denies shortness of breath, and denies coughing up blood. Gastrointestinal: The patient denies difficulty swallowing, denies acid reflux, denies ulcers, denies vomiting, denies jaundice/hepatitis, denies gallbladder problems, denies black or tarry stools, denies hemorrhoids, denies bleeding from rectum, denies diverticulitis, denies constipation, denies diarrhea, denies loss of stool control, and denies hernias. Kidney/Bladder: The patient denies kidney stones, denies urine infections, and denies bloody urine. Skin: The patient denies a history of skin cancer, denies bleeding/changing moles, and denies a history of skin rash. Neurologic: The patient denies a history of epilepsy/convulsions, denies headaches, denies head/spinal injuries, and denies stroke/TIA. Psychiatric: The patient denies psychiatric medications, denies depression, and denies voices, denies substance abuse. Endocrine: The patient denies thyroid disorders, denies diabetes, and denies hormonal problems. Hematologic: The patient denies a history of bruising, denies bleeding, and denies anemia, denies blood clots. Infections: The patient denies a history of measles and mumps, denies rheumatic fever, and denies sexually transmitted diseases. Musculoskeletal: The patient denies back pain/injury, denies back problems, NOTES sciatica, denies knee/foot trouble, denies arthritis, or denies gout. When was patient's last Mammogram screening? N/A Last Colonoscopy: 07/2015 Aurora Morton PA-C 09/18/2020 10:09 PM Signed HISTORY AND PHYSICAL Martínez E Bandar 1965 REFERRING PHYSICIAN: MD Cas CHIEF COMPLAINT: Consult (Colonoscopy) HPI: The patient is a 55 year old male referred for endoscopy. Martínez notes no . Patient denies any change in bowel habits, weight changes, blood in stools, black tarry stools or abdominal pain. Denies family history of colon issues. The patient notes no upper GI complaints. Martínez has undergone prior endoscopy. Last colonoscopy 07/05/[address] Smith with removal of a small tubular adenoma at that time. Patient denies chest pain, shortness of breath or recent hospitalizations. Denies problems with sedation in the past. PAST MEDICAL HISTORY Diagnosis Date - Diarrhea - Esophagitis - Gallbladder disease - Hypertension - Internal hemorrhoids without mention of complication - Irritable bowel syndrome - Other specified gastritis - PMH - PAST MEDICAL HISTORY OF anal pain - Pure hypercholesterolemia PAST SURGICAL HISTORY Procedure Laterality Date - ABLATE HEART DYSRHYTHM 2017 - COLONOS W/REM POLYP SNARE 07/05/2015 transverse colon adenomatous poylp - 5 year follow up - COLONOSCOP W/ OR W/O BRSH SPEC 12/27/00 Colonoscopy - EGD W/O OR W/BRUSH/WASH 07/18/04 EGD - EGD W/O OR W/BRUSH/WASH 08/26/2018 EGD - HEART CATHETERIZATION 2016 - LAPAROSCOPIC CHOLEYCYSTECTOMY 08/21/2017 Cholecystectomy, lap - SIGMOIDOSCOPY FLEX DIAG 07/26/11 Current Outpatient Medications Medication Sig - hydroCHLOROthiazide oral liquid 5 mg/mL (CPD) Take by mouth twice daily. - aspirin, enteric coated (ASPIRIN, ENTERIC COATED) 81 mg EC tablet Take 81 mg by mouth once daily. - atorvastatin (LIPITOR) 20 mg tablet 1 tablet once daily. - losartan (COZAAR) 25 mg tablet 1 tablet once daily. - omeprazole (PRILOSEC) 20 mg capsule Take 2 capsules by mouth once daily. - omeprazole (PRILOSEC) 20 mg capsule Take 20 mg by mouth as needed. - hydrocortisone (ANUSOL-HC) 25 mg RECTAL suppository 1 Suppository by RECTAL route daily at bedtime. INSERT (1) RECTALLY AT BEDTIME No current facility-administered medications for this visit. ALLERGIES: Patient has no known allergies. (more content not included)... Normal [facility] 09-13-[address] [facility] Telephone (Vaccinogen) MARTÍNEZ VALDIVIA ([id number]) 1965 M Date Time Provider Department 09/13/[address] During your visit today, we recorded the following information about you: Susan Bedoya RN 09/13/2020 5:29 PM Signed [facility] SURGICAL PHONE NOTE Date of Procedure/Surgery: 10/04/2020 Procedure/Surgery Type: COLONOSCOPY ? SEDATION:Conscious Sedation Location of Planned Procedure/Surgery: ? [facility] Surgery/Procedure Ordered: Yes COVID Testing Required: (FOR MAC CASES AND ASC PROCEDURES OTHER THAN COLON AND EGD): No Pre-Op Clearance Needed: No Prep Ordered:Yes: MIRALAX/DULCOLAX Prep Instructions given:Yes: Given in the office. Referral Completed:N/A Patient Diabetic:No. Medication Considerations: Patient on blood Thinners: No Any other meds that need to be held: No Pacemaker or Defibrillator:No Patient/Family Informed of above information and given directions regarding location/arrival: Yes: Patient Transportation Considerations: No Other Important Information: No Any physical limitations: No Any cognitive limitations: No Polishing Machine Operator Helper/Medical Equipment Repair Technician required: No Communication Limitations: No Bennie Gongora 09/14/2020 9:52 AM Signed patient called to reschedule. Patient rescheduled to 10-11-2020 Bennie Gongora Allergies As of Date: 09/13/2020 (No Known Allergies) Date Reviewed: 09/13/2020 Reviewed by: Aurora Quiñones LPN - Fully Assessed Reason for Visit: Colon [Other] Cmt: 10/04/2020 [facility] Colonoscopy Primary Visit Diagnosis:Encounter for screening for malignant neoplasm of colon [Z12.11] Order(s):SURGICAL REQUEST - ELECTIVE (12/2019) [[id number]] Order #: [id number]: 1 Prescriptions as of 09/13/2020 Sig: HYDROCHLOROTHIAZIDE 5 MG/ML O* Take by mouth twice daily. OMEPRAZOLE 20 MG CAPSULE,KENNETH* Take 2 capsules by mouth once* ASPIRIN 81 MG TABLET,DELAYED * Take 81 mg by mouth once juve* OMEPRAZOLE 20 MG CAPSULE,KENNETH* Take 20 mg by mouth as needed* ATORVASTATIN 20 MG TABLET 1 tablet once daily. LOSARTAN 25 MG TABLET 1 tablet once daily. HYDROCORTISONE ACETATE 25 MG * 1 Suppository by RECTAL route* Problem List As Of Date 09/13/2020 Noted Resolved IRRITABLE COLON [K58.9] ESOPHAGITIS [530.1] GASTRITIS NEC [535.4] Polyp of colon [K63.5] 07/15/2015 Calculus of gallbladder without cholecystitis w*12/27/2015 Encounter Status:Closed by SUSAN BEDOYA RN on 10/11/20 [facility] 09-13-2020 HOSP Patient:Alicia Valdivia MRN: Height:5' 10(1.778 m) Weight:264 lb 15.9 oz (120.2 kg) Outpatient Medications as of 10/11/20: hydroCHLOROthiazide oral liquid 5 mg/mL (CPD) omeprazole (PRILOSEC) 20 mg capsule aspirin, enteric coated (ASPIRIN, ENTERIC COATED) 81 mg EC tablet omeprazole (PRILOSEC) 20 mg capsule atorvastatin (LIPITOR) 20 mg tablet losartan (COZAAR) 25 mg tablet hydrocortisone (ANUSOL-HC) 25 mg RECTAL suppository Admission/Clinic Administered Medications as of 10/11/20: lactated ringers iv infusion fentaNYL 50 mcg/mL 25-100 mcg injection (SUBLIMAZE) midazolam 1-5 mg injection (VERSED) diphenhydrAMINE 12.5-50 mg injection (BENADRYL) Problem List: Irritable bowel syndrome [K58.9] Esophagitis [530.1] Other specified gastritis [535.4] Polyp of colon [K63.5] Calculus of gallbladder without cholecystitis without obstruction [K80.20] Allergies: No Known Allergies Date Verified:10/11/20 Lab Values No results within the last 30 days for the following basenames: K,HCT Progress Notes ([facility]): Tamica Saavedra Admin Sec 09/14/2020 8:19 AM Signed Pt stated he is going to be out of town unable to do the prep for the 10/04/20 colonoscopy. He would like to schedule a new date. Progress Notes ([facility]): Susan Bedoya RN 09/13/2020 5:29 PM Signed [facility] SURGICAL PHONE NOTE Date of Procedure/Surgery: 10/04/2020 Procedure/Surgery Type: COLONOSCOPY ? SEDATION:Conscious Sedation Location of Planned Procedure/Surgery: ? [facility] Surgery/Procedure Ordered: Yes COVID Testing Required: (FOR MAC CASES AND ASC PROCEDURES OTHER THAN COLON AND EGD): No Pre-Op Clearance Needed: No Prep Ordered:Yes: MIRALAX/DULCOLAX Prep Instructions given:Yes: Given in the office. Referral Completed:N/A Patient Diabetic:No. Medication Considerations: Patient on blood Thinners: No Any other meds that need to be held: No Pacemaker or Defibrillator:No Patient/Family Informed of above information and given directions regarding location/arrival: Yes: Patient Transportation Considerations: No Other Important Information: No Any physical limitations: No Any cognitive limitations: No Polishing Machine Operator Helper/Medical Equipment Repair Technician required: No Communication Limitations: No Bennie Gongora 09/14/2020 9:52 AM Signed patient called to reschedule. Patient rescheduled to 10-11-2020 Bennie Gongora [facility] 02-11-2019 ANES POST HNO ID: [id number] Author: Bee James Service: Anesthesiology Author Type: Anesthesiologist Type: Anesthesia PostOp Filed: 02/11/2019 7:06 PM Note Text: POST ANESTHESIA EVALUATION NOTE SERVICE DATE: 02/11/2019 SERVICE TIME: 7:06 PM : 1965 Vitals: 02/11/19 1357 02/11/19 1827 Temp: 36.8 ?C (98.2 ?F) 36.8 ?C (98.2 ?F) 02/11/19 18202/11/19 1830 02/11/19 18402/11/19 1900 BP: 155/84 155/77 152/75 144/72 02/11/19182602/11/19 18302/11/19 18402/11/19 190 Pulse: 94 83 82 81 02/11/19 18202/11/19 1830 02/11/19 18402/11/19 1900 Resp: 16 16 16 16 02/11/19182602/11/19 18302/11/19 18402/11/19 1900 SpO2: 98% 97% 95% 94% Validated Vital Signs: Yes POST ANES STATUS: No apparent anesthetic complications. The patient is appropriately hydrated with stable respiratory and cardiovascular status. Patient has safe and adequate airway control. The patient has appropriate pain relief and no significant post operative nausea or vomiting. The patient has achieved baseline mental status. Intra-Operative Events: No Significant Anesthesia Events Further assessment by Anesthesia Service: None Other Remarks: SIGNATURE: Bee James MD PATIENT NAME: Martínez Valdivia DATE: February 11, 2019 TIME: 7:06 PM PAGER/CONTACT #: [phone] [facility] ANES PREOPon 02-11-2019 ANES PREOP HNO ID: [id number] Author: Bee James Service: Anesthesiology Author Type: Anesthesiologist Type: Anesthesia PreOp Filed: 02/11/2019 3:27 PM Note Text: ANESTHESIOLOGY DAY OF SURGERY NOTE SERVICE DATE: 02/11/2019 SERVICE TIME: 3:12 PM : 1965 Procedure(s) (LRB): LAPAROSCOPIC INCISIONAL RECURRENT HERNIA REPAIR W/ MESH REDUCIBLE ADULT (N/A) Surgeon(s): Archana Smith Estimated body mass index is 40.76 kg/m? as calculated from the following: Height as of this encounter: 180.3 cm (5' 10.98). Weight as of this encounter: 132.5 kg (292 lb 1.8 oz). Most recent hematocrit and potassium results: No results found for this basename: HCT,HEMATOCRIT,K,POTASS IUM ANES DOS/PREOP NOTE: Vitals: 02/11/19 1357 BP: 158/86 Pulse: 97 Resp: 16 Temp: 36.8 ?C (98.2 ?F) SpO2: 94% Weight: 132.5 kg (292 lb 1.8 oz) Height: 180.3 cm (5' 10.98) ACTIVE PROBLEM LIST Irritable Bowel Syndrome Esophagitis Other Specified Gastritis Polyp of Colon Calculus of Gallbladder Without Cholecystitis Without Obstruction PAST MEDICAL HISTORY Diagnosis Date - Diarrhea - Esophagitis - Gallbladder disease - Hypertension - Internal hemorrhoids without mention of complication - Irritable bowel syndrome - Other specified gastritis - PMH - PAST MEDICAL HISTORY OF anal pain - Pure hypercholesterolemia PAST SURGICAL HISTORY Procedure Laterality Date - ABLATE HEART DYSRHYTHM 2017 - COLONOS W/REM POLYP SNARE 07/05/2015 transverse colon adenomatous poylp - 5 year follow up - COLONOSCOP W/ OR W/O [email or web address] SPEC 12/27/00 Colonoscopy - EGD W/O OR W/BRUSH/WASH 07/18/04 EGD - EGD W/O OR W/BRUSH/WASH 08/26/2018 EGD - HEART CATHETERIZATION 2015 - LAPAROSCOPIC CHOLEYCYSTECTOMY 08/21/2017 Cholecystectomy, lap - SIGMOIDOSCOPY FLEX DIAG 07/26/11 FAMILY HISTORY Problem Relation Age of Onset - Heart Father Social History: Social History Tobacco Use - Smoking status: Former Smoker Packs/day: 1.50 Years: 20.00 Pack years: 30.00 Last attempt to quit: 08/20/2003 Years since quittin.4 - Smokeless tobacco: Never Used Substance Use Topics - Alcohol use: Yes Comment: occasional - social - Drug use: No No current facility-administered medications on file prior to encounter. Current Outpatient Medications on File Prior to Encounter: aspirin, enteric coated (ASPIRIN, ENTERIC COATED) 81 mg EC tablet Take 81 mg by mouth once daily. atorvastatin (LIPITOR) 20 mg tablet 1 tablet once daily. losartan (COZAAR) 25 mg tablet 1 tablet once daily. omeprazole (PRILOSEC) 20 mg capsule Take 2 capsules by mouth once daily. omeprazole (PRILOSEC) 20 mg capsule Take 20 mg by mouth as needed. hydrocortisone (ANUSOL-HC) 25 mg RECTAL suppository 1 Suppository by RECTAL route daily at bedtime. INSERT (1) RECTALLY AT BEDTIME Current Facility-Administered Medications Medication Dose Route Frequency Provider Last Rate Last Dose - lactated ringers infusion 30 mL/hr INTRAVENOUS CONTINUOUS Archana T Kristian 30 mL/hr at 02/11/19 1400 30 mL/hr at 02/11/19 1400 - ceFAZolin 3 g in D5W 100 mL (ANCEF) 3 g INTRAVENOUS Pre-Op Once Archana T Kristian Allergies: ALLERGIES No Known Allergies DOS EXAM: Adequate NPO Status: Yes Anesthetic Risks, Benefits, Alternatives, Personnel and Consent Discussed: Yes Patient agrees to proceed: Yes Previous Anesthesia: No history of adverse event Airway Assessment: MP 3; Neck ROM: Full ROM without neurologic symptoms; Airway Evaluation: Short Neck, Thick neck and Stout Present Symptoms of Sleep Apnea: Hypertension, BMI > 35, Age over 50 (53 year old), Neck circumference > 15.75 inches and Male gender Dentition: Removable partial: lower Additional Physical Exam: Lungs: Patient health status unchanged since recent history and physical. See history and physical for exam findings. Cardiac: Patient health status unchanged since recent history and physical. See history and physical for exam findings. Additional Pertinent Findings: N/A Blood Products: Not anticipated for this procedure Anesthetic Plan: General Anesthetic Monitoring: Standard ASA Monitors Pain Management Plan: Parenteral or Oral ASA Class: 2 Other Medical Problems: None Chronic Beta Sondra medication administered within 24 hours: N/A I have interviewed and examined the patient. I have reviewed the medical record and/or the pre-anesthesia evaluation, pertinent labs, and test results. Significant changes in the patient's condition since the History and Physical, not otherwise documented in primary service progress notes: No This contains updated information obtained within 48 hours of Surgery/Procedure. SIGNATURE: eBe James MD PATIENT NAME: Martínez Valdivia DATE: February 11, 2019 TIME: 3:12 PM CSN: [id number] [facility] BRIEF OP NOTon 02-11-2019 BRIEF OP NOT HNO ID: [id number] Author: Archana Smith Service: General Surgery Author Type: Physician Type: Brief Op Note Filed: 02/11/2019 6:16 PM Note Text: BRIEF OPERATIVE NOTATION FOR SURGICAL PROCEDURE. Martínez Valdivia 1965 [id number] male LOG ID: [id number] Surgery/Procedure Date: 02/11/2019 Incision/Procedure Start Time: 5:15 PM Incision Close/Procedure End Time: 6:08 PM Surgeon(s)/Proceduralis t(s) and Child Advocate(s): Surgeon(s) and Role: * Archana Smith - Primary Physician Child Advocate: Esther Erickson REFERRING PHYSICIAN: Outpatient DEPT: [facility] PROVIDER: Misael POS: [id number] ANESTHESIA: General ASA CLASS: 3 - Severe DIAGNOSIS: incisional hernia PROCEDURE: laparoscopic incisional hernia repair - [id number] IVF: 1000 EBL: 20 Specimens: hernia sac/peritoneum ADDITIONAL DIAGNOSES: FINDINGS: 2cm defect COMPLICATIONS: None PMHx - PAST MEDICAL HISTORY Diagnosis Date - Diarrhea - Esophagitis - Gallbladder disease - Hypertension - Internal hemorrhoids without mention of complication - Irritable bowel syndrome - Other specified gastritis - PMH - PAST MEDICAL HISTORY OF anal pain - Pure hypercholesterolemia COMORBIDITIES - Obesity and HTN Post Op Occurrences - None Wound Classification - Clean Operative note dictated in the dictation system. - [id number] Archana Smith MD [facility] HISTORY PHYSICALon 9 HISTORY PHYSICAL HNO ID: [id number] Author: Archana Smith Service: General Surgery Author Type: Physician Type: HANDP Filed: 02/11/2019 2:56 PM Note Text: HISTORY AND PHYSICAL ? Martínez Valdivia 1965 ? REFERRING PHYSICIAN: Self ? CHIEF COMPLAINT: Consult (abdominal pain) ? HPI: The patient is a 53 year old male who returns with multiple complaints and concerns. ? Martínez is a patient I am following for a complaint of right upper quadrant pain. I performed a laparoscopic cholecystectomy with intraoperative cholangiogram on 08/21/17. Pathology showed chronic cholecystitis and cholelithiasis. The patient currently notes no problems related to his cholecystectomy. His appetite has been good. He denies fever, chills or abdominal pain. ? The patient had an umbilical hernia. The umbilical port site was closed with a permanent suture. The hernia has recurred. It is now located just above the level of umbilicus. He is not having pain at the site. ? He is again noting left upper quadrant discomfort. He undergone colonoscopy in 2016 which demonstrated a small 5 mm adenomatous polyp but otherwise no colonic abnormalities. He has not had previous upper endoscopy. ? Since cholecystectomy he also notes issues of occasional loose stools after eating fatty meals. He'll note some abdominal cramping and after 2-3 hours have looser stools that float along with some oil staining in the toilet bowl. ? He now notes that his looser stools as resolved does not want endoscopy at this time. He does wish to have his incisional umbilical hernia repaired. ? The patient is being seen by me today at the request of LIBERTAD Ferrer for my opinion and advice regarding the above complaints. ? ? PAST?MEDICAL?HISTORY PAST MEDICAL HISTORY Diagnosis Date - Diarrhea ? - Esophagitis ? - Gallbladder disease ? - Hypertension ? - Internal hemorrhoids without mention of complication ? - Irritable bowel syndrome ? - Other specified gastritis ? - PMH - PAST MEDICAL HISTORY OF ? ? anal pain - Pure hypercholesterolemia ? ? ? PAST?SURGICAL?HISTORY PAST SURGICAL HISTORY Procedure Laterality Date - ABLATE HEART DYSRHYTHM ? 2017 - COLONOS W/REM POLYP SNARE ? 07/05/2015 ? transverse colon adenomatous poylp - 5 year follow up - COLONOSCOP W/ OR W/O [facility] [email or web address] SPEC ? 12/27/00 ? Colonoscopy - EGD W/O OR W/BRUSH/WASH ? 07/18/04 ? EGD - EGD W/O OR W/BRUSH/WASH ? 08/26/2018 ? EGD - HEART CATHETERIZATION ? 2016 - LAPAROSCOPIC CHOLEYCYSTECTOMY ? 08/21/2017 ? Cholecystectomy, lap - SIGMOIDOSCOPY FLEX DIAG ? 07/26/11 ? ? ? CURRENT?MEDICATIONS ? Current Outpatient Medications: omeprazole (PRILOSEC) 20 mg capsule Take 2 capsules by mouth once daily. aspirin, enteric coated (ASPIRIN, ENTERIC COATED) 81 mg EC tablet Take 81 mg by mouth once daily. atorvastatin (LIPITOR) 20 mg tablet 1 tablet once daily. losartan (COZAAR) 25 mg tablet 1 tablet once daily. omeprazole (PRILOSEC) 20 mg capsule Take 20 mg by mouth as needed. hydrocortisone (ANUSOL-HC) 25 mg RECTAL suppository 1 Suppository by RECTAL route daily at bedtime. INSERT (1) RECTALLY AT BEDTIME ? No current facility-administered medications for this visit. ? ALLERGIES: Patient has no known allergies. ? PERSONAL HISTORY: SOCIAL?HISTORY Social History Socioeconomic History Marital status: Single Spouse name: Not on file Number of children: 0 Years of education: Not on file Highest education level: Not on file Occupational History Employer: [employer] Social Needs Financial resource strain: Not on file Food insecurity: Worry: Not on file Inability: Not on file Transportation needs: Medical: Not on file Non-medical: Not on file Tobacco Use Smoking status: Former Smoker Packs/day: 1.50 Years: 20.00 Pack years: 30 Quit date: 08/20/2003 Years since quittin.4 Smokeless tobacco: Never Used Substance and Sexual Activity Alcohol use: Yes Comment: occasional - social Drug use: No Sexual activity: Not on file Lifestyle Physical activity: Days per week: Not on file Minutes per session: Not on file Stress: Not on file Relationships Social connections: Talks on phone: Not on file Gets together: Not on file Attends scientologist service: Not on file Active member of club or organization: Not on file Attends meetings of clubs or organizations: Not on file Relationship status: Not on file Intimate partner violence: Fear of current or ex partner: Not on file Emotionally abused: Not on file Physically abused: Not on file Forced sexual activity: Not on file Other Topics Concerns: Not on file Social History Narrative Not on file ? FAMILY HISTORY: FAMILY?HISTORY FAMILY HISTORY Problem Relation Age of Onset - Heart Father ? ? ? REVIEW OF SYMPTOMS: The review of systems data was entered by the nurse and reviewed by me ? Nursing Notes: Bennie Valdivia 01/19/2019 4:44 PM Signed REVIEW OF SYSTEMS: General: The patient denies fatigue, denies weight loss, denies weight gain, denies feeling hot, and denies feelings of cold. Eyes: The patient denies glaucoma, denies eye injury/surgery, does not wear glasses or contacts. Ear/Nose/Throat: The patient denies allergies, denies hayfever, denies ear infections, and denies bloody noses. Cardiovascular: The patient denies chest pain, denies heart disease, NOTES high blood pressure,denies cardiac stent, denies prior heart attack, denies irregular heart beat, NOTES high cholesterol, denies poor circulation, denies heart failure, other cardiac issues, denies claudication, denies cold feet, denies peripheral arterial stent. Respiratory: The patient denies tuberculosis, denies pneumonia, denies frequent cough, denies pulmonary embolism, denies shortness of breath, and denies coughing up blood. Gastrointestinal: The patient denies difficulty swallowing, denies acid reflux, denies ulcers, denies vomiting, denies jaundice/hepatitis, denies gallbladder problems, denies black or tarry stools, denies hemorrhoids, denies bleeding from rectum, denies diverticulitis, denies constipation, denies diarrhea, denies loss of stool control, and NOTES hernias. Kidney/Bladder: The patient denies kidney stones, denies urine infections, and denies bloody urine. Skin: The patient NOTES Possible a history of skin cancer, denies bleeding/changing moles, and denies a history of skin rash. Neurologic: The patient denies a history of epilepsy/convulsions, denies headaches, denies head/spinal injuries, and denies stroke/TIA. Psychiatric: The patient denies psychiatric medications, denies depression, and denies voices, denies substance abuse. Endocrine: The patient denies thyroid disorders, denies diabetes, and denies hormonal problems. Hematologic: The patient denies a history of bruising, denies bleeding, and denies anemia, denies blood clots. Infections: The patient denies a history of measles and mumps, denies rheumatic fever, and denies sexually transmitted diseases. Musculoskeletal: The patient denies back pain/injury, denies back problems, denies sciatica, denies knee/foot trouble, denies arthritis, or denies gout. ? ? When was patient's last Mammogram screening? N/A ? Last Colonoscopy: ? Bennie Valdivia PHYSICAL EXAMINATION: ? General: The patient is 53 year old male, well nourished, well hydrated in no acute distress. The patient is oriented to time, place, and person. ? VITALS: Blood pressure 142/80, pulse 94, temperature 36.4 ?C (97.6 ?F), weight 132.5 kg (292 lb), SpO2 92 %. Body mass index is 40.73 kg/m?. ? HEENT: Normal cephalic, ataumatic, pupils are equally round, sclera are anicteric, mucous membranes are moist, oropharynx is clear. Neck has no masses, asymmetry or lymphadenopathy. Thyroid is unremarkable. ? Respiratory: Clear to auscultation and percussion. Normal respiratory excursion and pattern. ? Cardiac: Examination is regular rate and rhythm. ? Abdominal exam: Soft, nontender, with no palpable masses. No hepatosplenomegaly. A palpable hernia at the base of the umbilicus- ? Rectal exam: exam deferred ? Extremities: no clubbing, cyanosis or edema. No adenopathy. ? Other: ? LABORATORY VALUES: As Noted ? RADIOLOGIC STUDIES: As Noted ? Assessment IMPRESSION: incisional umbilical hernia ? PLAN: I plan to perform a laparoscopic incisional/ventral hernia repair with mesh. The planned surgical procedure was discussed extensively with the patient. The risks, benefits and anticipated outcomes of the procedure, the risks and benefits of the alternatives to the procedure, and the roles and tasks of the personnel to be involved, were discussed with the patient. My staff has also explained the procedure in understandable terms and the patient was given the option to take printed material concerning the planned procedure. The patient had the opportunity to ask questions concerning the planned procedure. The patient freely consents to the planned procedure. ? Anticipated Surgical Procedure/ CPT Code: laparoscopic incisional hernia repair - 45127-564 ? Anticipated Anesthetic: General ? Patient weight: Blood pressure 142/80, pulse 94, temperature 36.4 ?C (97.6 ?F), weight 132.5 kg (292 lb), SpO2 92 %. BMI: Body mass index is 40.73 kg/m?. ? Planned antibiotic: Ancef 3gm IVPB director of business operations to OR ? SCDs needed - Yes ? Child Advocate Needed - Yes ? ? ? Diagnoses: (K43.2) Incisional hernia, without obstruction or gangrene (primary encounter diagnosis) ? My findings have been communicated to LIBERTAD Ferrer via shared medical record. This note will be forwarded to LIBERTAD Ferrer. Return to Clinic: The patient is instructed to follow-up with me after the testing has been completed. ? Archana Smith MD [facility] OPERATIVE NOon 02-11-2019 OPERATIVE NO HNO ID: [id number] Author: Archana Smith Service: General Surgery Author Type: Physician Type: Operative Report Filed: 02/12/2019 7:34 AM Note Text: [facility] - Operative Report MARTÍNEZ VALDIVIA : 1965 AGE: 53. SEX: M PATIENT TYPE: A HOSP SVC: [facility] LOCATION: [facility] [place] 2[place] ATTENDING PHYSICIAN: ARCHANA SMITH CSN NUMBER: [id number] DATE OF SURGERY/PROCEDURE: 02/11/2019 INCISION/PROCEDURE START TIME: 0515 hours INCISION CLOSE/PROCEDURE END TIME: 0608 hours PREOPERATIVE DIAGNOSIS: Umbilical/incisional hernia. POSTOPERATIVE DIAGNOSIS: 2 cm fascial defect to the umbilical hernia. SURGEON: Archana Smith M.D. TRANSIT AUTHORITY POLICE OFFICER: Oksana Erickson SURGERY/PROCEDURE: Laparoscopic umbilical hernia repair using a 12 cm Parietene Covidien mesh, reference #[id number], log #[id number], expires 04/04/2020. ANESTHESIA: General. LOG ID NUMBER: [id number] ANESTHESIOLOGIST: Dr. Borrero. ASA: 3. INTRAVENOUS FLUIDS: 1000 mL. ESTIMATED BLOOD LOSS: 20 mL. URINE OUTPUT: No catheter. FINDINGS: As described above. SPECIMENS: Hernia sac and preperitoneal fat. DRAINS: None. COMPLICATION: None. Patient taken to PACU in stable condition. DESCRIPTION OF PROCEDURE: Patient was marked in the holding area. The patient concurred that his umbilical site was the side of the hernia. The site was marked. He was brought back to the operative suite. Sign-in was performed verifying patient, site, procedure, position, critical nursing information, VTE and antibiotic prophylaxis. Patient received 3 g of Ancef and sequential pressure devices placed. Following induction of general anesthetic, patient was then prepped and draped in usual fashion. Time-out was performed verifying patient, site, procedure, and position. Local anesthetic injected in umbilicus. An incision was made. The hernia sac entered bluntly and a 5-port was placed through the hernia sac. Pneumoperitoneum to 15 mmHg was insufflated. 3-5 mm ports were placed in the lateral abdominal site to the left and the umbilical port was upsized to a 10 Loreta. Visual inspection, no visualized intraabdominal abnormalities. The defect was noted to be approximately 2 cm in size. Sonicision was used to release the periumbilical preperitoneal fat and divided the peritoneum and the falciform ligament to a size approximately 6 cm above the level of the umbilical defect. Once this was completed, a 12 cm Parietene mesh was placed in the preperitoneal space, secured with transfixing 0 Prolene sutures in 4 quadrants and tacked with an AbsorbaTack Tacker circumferentially at the outer rim and the inner rims. An additional 0 Prolene suture was placed through the umbilical fascial defect with good position of the mesh. Pneumoperitoneum was released. The 5 ports were under direct visualization with the last 5 port removed without direct visualization. Subcutaneous fat and skin at the umbilical site were closed with 3-0 Vicryl sutures. Skin was closed with running and interrupted 4-0 Monocryl subcu sutures. Steri- Strips dressings were applied. Patient tolerated procedure well, brought to Recovery in stable condition. Archana Smith M.D. RG:[id number] /[id number] [facility] PT EDon 02-11-2019 PT ED HNO ID: [id number] Author: Lambert AyonRnPrashant Terry RN Service: Nursing Author Type: Registered Nurse Type: Patient Education Filed: 02/11/2019 7:27 PM Note Text: POST OP LEARNING RESPONSE INSTRUCTION PROVIDED TO: Patient and friend/other METHOD OF INSTRUCTION: Written instruction - handouts Verbal instruction PATIENT / FAMILY RESPONSE: Verbalizes understanding of: POST-OPERATIVE INSTRUCTIONS-Correct actions to take to reduce postoperative complications FOLLOW-UP PLAN: Patient instructed to call with any further issues SUPPLEMENTAL MATERIAL: None REFERRAL (RECOMMENDATION): None Electronically Signed By: Lambert Terry RN In Department: [facility] SURGERY [facility] PT ED HNO ID: [id number] Author: Page AyonRn) AMALIA Sommer Service: ? Author Type: Registered Nurse Type: Patient Education Filed: 02/11/2019 1:43 PM Note Text: PRE OP LEARNING ASSESSMENT PROCEDURE/SURGERY: Lap incisional hernia repair with mesh READINESS TO LEARN Interested COGNITIVE ABILITY: Alert and oriented MOTIVATION TO LEARN: Interested FAMILY SUPPORT: Unable to assess - Family not present PATIENT LEARNS BEST BY: Individual Instruction Verbal Instruction FACTORS AFFECTING LEARNING: None PHYSICAL LIMITATIONS AFFECTING LEARNING: None Electronically Signed By: Page Sommer RN In Department: [facility] SURGERY [facility] SURGICAL PATHOLOGYon SURGICAL PATHOLOGY Specimen originated from [facility] Specimen #: [id number] Submitting Physician: ARCHANA SMITH MD FINAL DIAGNOSIS Soft tissue, umbilical region, herniorrhaphy - Hernia sac. JRG/LIZBET/td 02/16/2019 Eyad Amezquita M.D. (Electronic Signature) SPECIMEN SUBMITTED A: PRE-PERITONEUM CLINICAL DATA INCISIONAL HERNIA GROSS DESCRIPTION A. Received in formalin as pre-peritoneum and consist of a segment of fibromembranous tissue measuring 6.0 x 5.0 x 1.5 cm. Serially sectioned and demonstrates no areas of nodularity or induration. Pinking Sewing Machine Operator sections are submitted in cassette A1. TN/shr 02/12/2019 Gross examination performed at [facility], [address] [place] [address] Date of Report: 02/17/2019 Date of Procedure: 02/11/2019 Date of Receipt: 02/12/2019 Submitted by: ARCHANA SMITH MD Location: [facility] Diagnostic interpretation performed at [facility], [address] [place] [address]. CLIA Number: [id number] [facility] HOSPon 01-19-2019 HOSP Patient:Alicia Valdivia MRN: Height:5' 10.984(1.803 m) Weight:292 lb 1.8 oz (132.5 kg) Outpatient Medications as of 02/11/19: oxyCODONE-acetaminophen (PERCOCET) 5-325 mg tablet omeprazole (PRILOSEC) 20 mg capsule aspirin, enteric coated (ASPIRIN, ENTERIC COATED) 81 mg EC tablet omeprazole (PRILOSEC) 20 mg capsule atorvastatin (LIPITOR) 20 mg tablet losartan (COZAAR) 25 mg tablet hydrocortisone (ANUSOL-HC) 25 mg RECTAL suppository Admission/Clinic Administered Medications as of 02/11/19: lactated ringers infusion ceFAZolin 3 g in D5W 100 mL (ANCEF) Problem List: Irritable bowel syndrome [K58.9] Esophagitis [530.1] Other specified gastritis [535.4] Polyp of colon [K63.5] Calculus of gallbladder without cholecystitis without obstruction [K80.20] Allergies: No Known Allergies Date Verified:02/11/19 Lab Values No results within the last 30 days for the following basenames: K,HCT Progress Notes ([facility]): Carmel Oconnell LPN 02/10/2019 2:36 PM Signed [facility] paperwork completed and faxed. Original in nurses station. Progress Notes ([facility]): Bennie Valdivia 01/19/2019 4:41 PM Signed 02-11-2019 Umbilical hernia incisional hernia Bennie Valdivia [facility] Clinical Lists Update: Prelo associate merchandise planner 12-14-2016 Left ventricular Ejection fraction 60 % Invalid Interpretation Code Constant Contact Work Phone: Office Visiton 07-12-2016 Documentation of current medications (procedure) Done Invalid Interpretation Code [facility] Phone: Fall risk assessment No Invalid Interpretation Code Constant Contact Work Phone: [phone] Replaced Document: Crissy E CG Observationson 07-12-2016 electrocardiogram interpretation Sinus Rhythm WITHIN NORMAL LIMITS Invalid Interpretation Code [facility] Phone: [phone] GE use only - for LinkLogic import when terms are not otherwise specified 416 ms Invalid Interpretation Code Constant [employer] Work Phone: [phone] P wave axis, electrocardiogram 45 deg Invalid Interpretation Code Constant Contact Work Phone: MT interval, electrocardiogram 132 ms Invalid Interpretation Code [facility] Phone: [phone] Pulse (Heart Rate) 73 /min Invalid Interpretation Code [employer] Work Phone: [phone] QRS axis, electrocardiogram -4 deg Invalid Interpretation Code [employer] Work Phone: [phone] QRS duration, electrocardiogram 106 ms Invalid Interpretation Code [employer] Work Phone: [phone] QT interval, electrocardiogram new path ms Invalid Interpretation Code [employer] Work Phone: [phone] T wave axis, electrocardiogram -1 deg Invalid Interpretation Code [employer] Work Phone: [phone] Office Visiton 06-15-2015 cardiac risk group B Invalid Interpretation Code [facility] Phone: [phone] General cardiovascular disease 10Y risk [#] [place].D'Agost[place] o 4 % Invalid Interpretation Code [employer] Work Phone: [phone] Tobacco use CPHS Former smoker Invalid Interpretation Code [facility] Phone: [phone] Clinical Lists Update: Prelo associate merchandise planner 03-28-2015 Alanine aminotransferase (ALT) 31 U/L Invalid Interpretation Code [employer] Work Phone: [phone] Alkaline phosphatase (ALP) 99 U/L Invalid Interpretation Code [employer] Work Phone: [phone] Aspartate aminotransferase (AST) 23 U/L Invalid Interpretation Code [employer] Work Phone: [phone] Cholesterol 184 mg/dL Invalid Interpretation Code [employer] Work Phone: [phone] HDL Cholesterol 43 mg/dL Invalid Interpretation Code [employer] Work Phone: [phone] LDL Cholesterol 90 mg/dL Invalid Interpretation Code [employer] Work Phone: [phone] Triglyceride 255 mg/dL Invalid Interpretation Code [employer] Work Phone: [phone] Albumin 4.3 g/dL Invalid Interpretation Code [employer] Work Phone: [phone] Albumin/Globulin Ratio 1.8 {ratio} Invalid Interpretation Code [employer] Work Phone: [phone] Bilirubin (total) 1.0 mg/dL Invalid Interpretation Code [employer] Work Phone: [phone] BUN/Creatinine Ratio 13 mg/mg Invalid Interpretation Code [employer] Work Phone: [phone] Calcium 9.3 mg/dL Invalid Interpretation Code [employer] Work Phone: [phone] Chloride 98 mmol/L Invalid Interpretation Code [employer] Work Phone: [phone] CO2 98 mmol/L Invalid Interpretation Code [employer] Work Phone: [phone] Creatinine 0.95 mg/dL Invalid Interpretation Code [employer] Work Phone: [phone] eGFR (non-black) 94 mL/min/{1.73_m2} Invalid Interpretation Code [employer] Work Phone: [phone] eGFR (non-black) 108 mL/min/{1.73_m2} Invalid Interpretation Code [employer] Work Phone: [phone] Erythrocytes (RBC) 5.21 10*6/uL Invalid Interpretation Code [employer] Work Phone: [phone] Globulin 2.4 g/dL Invalid Interpretation Code [employer] Work Phone: [phone] Glucose 107 mg/dL High [employer] Work Phone: [phone] Hematocrit (HCT) 46.3 % Invalid Interpretation Code [employer] Work Phone: [phone] Hemoglobin (HGB) 15.5 g/dL Invalid Interpretation Code [employer] Work Phone: [phone] MCH 29.8 pg Invalid Interpretation Code [employer] Work Phone: [phone] MCHC 33.5 g/dL Invalid Interpretation Code [employer] Work Phone: [phone] MCV 89 fL Invalid Interpretation Code [employer] Work Phone: [phone] Platelets 187 10*3/mm3 Invalid Interpretation Code [employer] Work Phone: [phone] Potassium 4.3 mmol/L Invalid Interpretation Code [employer] Work Phone: [phone] Protein 6.7 g/dL Invalid Interpretation Code [employer] Work Phone: [phone] RDW-CA 13.2 % Invalid Interpretation Code [employer] Work Phone: [phone] Sodium 143 mmol/L Invalid Interpretation Code [employer] Work Phone: [phone] Urea nitrogen 12 mg/dL Invalid Interpretation Code [facility] Work Phone: [phone] WBC (Leukocytes) 7.6 10*3/uL Invalid Interpretation Code [facility] Work Phone: [phone] Clinical Lists Update: Prelo associate merchandise planner 05-28-2014 very low density lipoproteins 51 mg/dL High [facility] Work Phone: [phone] Vital Signs Date Time Vital Sign Value Performing Clinician Jerry angeles 09-06-2022 16:13-0400 Body weight 121.1 kg CUT OUT OPERATOR-C Archana Reyes CUT OUT OPERATOR Work Phone: [facility] 09-06-2022 16:13-0400 Diastolic blood pressure 72 mm[Hg] CUT OUT OPERATOR-C Archana Reyes CUT OUT OPERATOR Work Phone: [facility] 09-06-2022 16:13-0400 Heart rate 86 /min CUT OUT OPERATOR-C Archana Reyes CUT OUT OPERATOR Work Phone: [facility] 09-06-2022 16:13-0400 Respiratory rate 16 /min CUT OUT OPERATOR-C Archana Reyes CUT OUT OPERATOR Work Phone: [facility] 09-06-2022 16:13-0400 Systolic blood pressure 120 mm[Hg] CUT OUT OPERATOR-C Archana Reyes CUT OUT OPERATOR Work Phone: [facility] 09-06-2022 09:10-0400 Body height 180.34 cm CUT OUT OPERATOR-C Archana Reyes CUT OUT OPERATOR Work Phone: [facility] 07-12-2016 15:26-0500 BMI (Body Mass Index) 37.29 kg/m2 Linda Hilton RN [facility] Work Phone: 07-12-2016 15:26-0500 BP Diastolic 80 mm[Hg] Linda Hilton RN [facility] Work Phone: 07-12-2016 15:26-0500 BP Systolic 120 mm[Hg] Linda Hilton RN [facility] Work Phone: 07-12-2016 15:26-0500 Height 180.34 cm Linda Hilton RN [facility] Work Phone: 07-12-2016 15:26-0500 Pulse (Heart Rate) 80 /min Linda Hilton RN [facility] Work Phone: 07-12-2016 15:26-0500 Respiratory Rate 20 /min Linda Hilton RN [facility] Work Phone: 07-12-2016 15:26-0500 Weight 121.29 kg Linda Hilton RN [facility] Work Phone: 06-15-2015 10:58-0500 BSA (Body Surface Area) 2.42 m2 Linda Hilton RN [facility] Work Phone: 05-04-2015 15:56-0500 Height 180.34 cm Linda Hilton RN [facility] Work Phone: 05-04-2015 15:56-0500 Weight 125 kg Linda Hilton RN [facility] Work Phone: Encounters Encounter Date Encounter Type Care Provider Facility Start: 07-11-2024 End: 07-11-2024 ambulatory ARCHANA REYES SLITTER SCORER - LONG WALL MINING MACHINE TENDER Facility:[facility] Start: 02-18-2024 End: 02-18-2024 ambulatory ARCHANA REYES SLITTER SCORER - LONG WALL MINING MACHINE TENDER Facility:[facility] Start: 02-18-2024 End: 02-18-2024 Patient encounter procedure ARCHANA REYES SLITTER SCORER - LONG WALL MINING MACHINE TENDER [facility] Start: 02-17-2024 ambulatory ARCHANA NOEL SLITTER SCORER - LONG WALL MINING MACHINE TENDER Facility:[facility] Start: 01-09-2024 End: 01-13-2024 ambulatory ARCHANA REYES SLITTER SCORER - [employer] WALL MINING MACHINE TENDER Facility:[facility] Start: 01-09-2024 End: 01-13-2024 Outreach Lab ARCHANA REYES SLITTER SCORER - LONG WALL MINING MACHINE TENDER [facility] Start: 01-07-2024 End: 01-07-2024 ambulatory ARCHANA REYES SLITTER SCORER - LONG WALL MINING MACHINE TENDER Facility:[facility] Start: 01-07-2024 End: 01-07-2024 Patient encounter procedure ARCHANA REYES SLITTER SCORER - LONG WALL MINING MACHINE TENDER [facility] Start: 08-16-2023 End: 08-16-2023 ambulatory Christopher Wells Facility:[facility] Start: 08-05-2023 End: 08-05-2023 ambulatory ARCHANA REYES SLITTER SCORER - LONG WALL MINING MACHINE TENDER Facility:[facility] Start: 08-05-2023 End: 08-05-2023 Patient encounter procedure ALEX WILDE DO [facility] Start: 07-04-2023 End: 07-08-2023 Outreach Lab ARCHANA REYES SLITTER SCORER - LONG WALL MINING MACHINE TENDER [facility] Start: 12-20-2022 End: 12-24-2022 Outreach Lab ARCHANA REYES SLITTER SCORER - LONG WALL MINING MACHINE TENDER [facility] Start: 11-12-2022 ambulatory Christopher Priscilla Facility[facility] Start: 11-12-2022 Non-patient / Non-visit CUT OUT OPERATOR-C Parish Reyes CUT OUT OPERATOR Work Phone: [facility] Start: 11-12-2022 End: 11-12-2022 ambulatory CUT OUT OPERATOR-C Archana Reyes CUT OUT OPERATOR Work Phone: [facility] Work Phone: Start: 11-12-2022 End: 11-12-2022 Patient encounter procedure CUT OUT OPERATOR-C Archana Reyes CUT OUT OPERATOR [facility]: Start: 10-17-2022 ambulatory Archana Reyes CUT OUT OPERATOR Facility:[facility] Start: 10-17-2022 Non-patient / Non-visit CUT OUT OPERATOR-C Parish Reyes CUT OUT OPERATOR Work Phone: [facility] Start: 10-17-2022 End: 10-17-2022 ambulatory CUT OUT OPERATOR-Zoraida Reyes CUT OUT OPERATOR Work Phone: [facility] Work Phone: Start: 10-17-2022 End: 10-17-2022 Patient encounter procedure CUT OUT OPERATOR-Zoraida Reyes CUT OUT OPERATOR Work Phone: [facility] Start: 09-21-2022 ambulatory Archana Reyes CUT OUT OPERATOR Facility:[facility] Start: 09-06-2022 End: 09-06-2022 ambulatory Archana Reyes CUT OUT OPERATOR Facility:[facility] Start: 09-06-2022 End: 09-06-2022 Patient encounter procedure CUT OUT OPERATOR-Zoraida Reyes CUT OUT OPERATOR Work Phone: [facility] Start: 07-06-2022 End: 07-06-2022 Patient encounter procedure ARCHANA REYES SLITTER SCORER - LONG WALL MINING MACHINE TENDER [facility] Start: 06-14-2022 End: 06-18-2022 Outreach Lab ARCHANA REYES SLITTER SCORER - LONG WALL MINING MACHINE TENDER [facility] Start: 11-02-2021 End: 11-06-2021 Outreach Lab ARCHANA REYES SLITTER SCORER - LONG WALL MINING MACHINE TENDER [facility] Start: 05-11-2021 End: 05-15-2021 Outreach Lab ARCHANA REYES SLITTER SCORER - LONG WALL MINING MACHINE TENDER [facility] Procedures Date Procedure Procedure Detail Performing Clinician Start: 11-12-2022 Cardiovascular stres s test using pharmacologic stress agent CUT OUT OPERATOR-Zoraida Reyes CUT OUT OPERATOR Work Phone: Start: 10-17-2022 CT angiography of co ronary arteries CUT OUT OPERATOR-C Archana Reyes CUT OUT OPERATOR Work Phone: Start: 07-12-2016 End: 07-12-2016 XIMENA Wells MD Start: 07-12-2016 End: 07-12-2016 Electrocardiogram, complete Chrisotpher Jones i, MD Start: 07-12-2016 End: 07-12-2016 Follow Up Appt 4 months Sary Garcia Start: 05-11-2016 End: 05-11-2016 Follow Up Appt 2 months Sary Garcia Start: 05-11-2016 End: 05-11-2016 Follow Up Appt Other Christopher Wells MD Start: 05-11-2016 End: 05-11-2016 MMM Christopher Wells MD Start: 06-15-2015 End: 06-28-2015 Chest x-ray Christopher Wells MD Start: 06-15-2015 End: 07-06-2016 PAYROLL AND BENEFITS SPECIALIST Christopher Wells MD Start: 06-15-2015 End: 06-15-2015 Electrocardiogram, complete Christopher Jones i, MD Start: 06-15-2015 End: 07-06-2016 Follow Up Appt 6 months Sary Garcia Start: 06-15-2015 End: 06-28-2015 Left Heart Cath Christopher Wells MD Plan of Treatment Date Care Activity Detail Author Start: 12-18-2016 End: 12-18-2016 Appointment Appointment [facility] Work Phone: Start: 07-12-2016 End: 07-12-2016 PAYROLL AND BENEFITS SPECIALIST XIMENA [facility] Work Phone: Start: 07-12-2016 End: 07-12-2016 Electrocardiogram, complete EKG (In office) [facility] Work Phone: Start: 07-12-2016 End: 07-12-2016 Follow Up Appt 4 months Follow Up Appt 4 months [facility] Work Phone: Start: 05-14-2016 End: 05-14-2016 EPS Referral [facility], [address] [place] [address], [id number] [facility] Work Phone: Start: 05-11-2016 End: 05-11-2016 Follow Up Appt 2 months Follow Up Appt 2 months [facility] Work Phone: Start: 05-11-2016 End: 05-11-2016 Follow Up Appt Other Follow Up Appt Other [facility] Work Phone: Start: 05-11-2016 End: 05-11-2016 MMM MMM [facility] Work Phone: Start: 06-15-2015 End: 06-28-2015 Chest x-ray X-Ray, Chest, PA & Lateral [facility] Work Phone: Start: 06-15-2015 End: 07-06-2016 PAYROLL AND BENEFITS SPECIALIST PAYROLL AND BENEFITS SPECIALIST [facility] Work Phone: Start: 06-15-2015 End: 06-15-2015 Electrocardiogram, complete EKG (In office) [facility] Work Phone: Start: 06-15-2015 End: 07-06-2016 Follow Up Appt 6 months Follow Up Appt 6 months [facility] Work Phone: Start: 06-15-2015 End: 06-15-2015 Left Heart Cath Left Heart Cath [facility] Work Phone: [facility] Immunizations Immunization Date Immunization Notes Care Provider Kodi de paz 08-31-2014 tetanus toxoid, redu monse diphtheria toxoid, and acellular pertussis vaccine, adsorbed ARCHANA REYES SLITTER SCORER - LONG WALL MINING MACHINE TENDER [facility] Payers Date Payer Category Payer Unknown [id number] 2022 Self-pay [id number] 2022 Unknown [id number] 2012 Unknown [id number] 1965 Unknown [id number] 2.16.8 [id number] 1965 Unknown [id number] 2.16.8 [id number] 1965 Unknown [id number] 2.16.8 [id number] 1965 Unknown [id number] 2.16.8 [id number] 1966 Unknown [id number] 2.16.8 [id number] 1965 Unknown [id number] 2.16.8 [id number] Private Health Insurance [place] [id number] Unknown [id number] 2.16.8 [id number] Unknown [id number] 2.16.8 [id number] Unknown [id number] 2.16.8 [id number] Unknown [id number] 2.16.8 [id number] Unknown [id number] 2.16.8 [id number] Unknown [id number] 2.16.8 [id number] Unknown [id number] 2.16.8 [id number] Social History Date Type Detail Facility Start: 02-09-2019 End: 12-27-2023 Ex-smoker (finding) [facility] Start: 1965 Sex Assigned At Male A [facility] Start: 09-06-2022 Tobacco smoking stat [facility] Unknown if ever smoked [facility] Start: 08-20-2017 Cigarettes [facility] Medical Equipment Procedure Code Equipment Code Equipment Origin al Text Equipment Identifier Dates JENNI SHOEMAKER NICE Start: 08-21-2017 JENNI SHOEMAKER NICE Start: 08-21-2017 JENNI SHOEMAKER NICE Start: 08-21-2017 JENNI SHOEMAKER NICE Start: 08-21-2017 Clinical Notes 09-15-2020 to 02-18-2024 LaboratoryLaboratoryLaboratoryLaboratoryLaboratoryRadiologyLaboratoryRadiologyLa boratoryRadiologyLaboratoryRadiology Note Date & Type Note Facility 02-18-2024 Note ORIGINAL FROM: [address] [address] PROCEDURE FOR: MARTÍNEZ VALDIVIA [address] [place] [address] Home: PID#: [id number] Exam#: [id number] : 1965 Age: 58 TO: ARCHANA REYES APRN [facility] [address] [address] Fax: NO FAX EXAMINATION: DIAGNOSTIC BILATERAL MAMMOGRAM WITH TOMOSYNTHESIS, 02/18/2024 9:28 am TECHNIQUE: Tomosynthesis was performed as part of the diagnostic bilateral mammogram. 2D standard and 3D tomosynthesis combination imaging performed. Current study was also evaluated with a Computer Aided Detection (CAD) system. COMPARISON: None. HISTORY: ORDERING SYSTEM PROVIDED HISTORY: Reason for Exam: Diagnostic mammo Right breast pain FINDINGS: BREAST DENSITY: n/a There is mild bilateral right greater than left gynecomastia. No significant masses, calcifications, or other findings. IMPRESSION: No mammographic evidence of malignancy. Right greater than left mild gynecomastia. Recommend clinical follow-up. Nicholas Oleary risk calculations do not apply for this patient. BIRADS: BI-RADS: 2: Benign RECALL: none RECALL TYPE: unspecified LETTER SENT: Normal BI-RADS 1 and 2 Interpreted by: Alex Gandara MD Preliminary Report By: Alex Gandara MD Electronically signed By Alex Gandara MD Dictated Date: 02/18/2024 9:59:40 AM Prelim Date: 02/18/2024 10:01:50 AM Sign Date: 02/18/2024 10:01:50 AM Ordering Provider: ARCHANA REYES CLINICAL: RIGHT BREAST PAIN. Special Delivery Mail Carrier: KATELYNN ALMODOVAR RT(R)(M)(CT) letter sent: Normal BI-RADS 1 and 2 Mammogram BI-RADS: 2 Benign [facility] 01-07-2024 Note ORIGINAL EXAMINATION: SCREENING ULTRASOUND OF THE AORTA01/07/2024 7:45 am AORTA SCREENING TECHNIQUE: Duplex ultrasound using B-mode/liz scaled imaging, Doppler spectral analysis and color flow Doppler was obtained of the aorta. COMPARISON: 07/06/2022 HISTORY: ORDERING SYSTEM PROVIDED HISTORY: Reason for Exam: reevaluation of a 4.5 cm abdominal aortic aneurysm with Radiology recommendation for repeating in a year FINDINGS: Portions of the aorta are obscured by bowel gas and body habitus. The aortic bifurcation and proximal common iliac arteries are obscured by bowel gas artifacts. Aorta measurements: Proximal: 2.7 x 2.9 cm Mid: 4.1 x 4.3 cm Distal: 2.5 x 2.8 cm Atherosclerosis: Moderate IMPRESSION: Essentially stable 4.3 cm abdominal aortic aneurysm.. A 1 year followup is recommended based on the AAA size interval of 4.0-4.4 cm. Vascular consultation is also recommended. Reference: J Vasc Surgery 2009 Feb;50(4 Supplemental):S2-49 I have personally reviewed the images of this examination and agree with the resident's findings and interpretation. Interpreted by: Diego Alvarez MD Preliminary Report By: Denton Null Electronically signed By Diego Alvarez MD Dictated Date: 01/07/2024 2:24:22 PM Prelim Date: 01/07/2024 3:27:52 PM Sign Date: 01/07/2024 3:27:52 PM Ordering Provider: [facility] 07-06-2022 Note ORIGINAL EXAMINATION: TWO XRAY VIEWS OF THE RIGHT HIP 07/06/2022 8:12 am COMPARISON: None. HISTORY: ORDERING SYSTEM PROVIDED HISTORY: Reason for Exam: chronic right hip pain FINDINGS: No fracture or dislocation. No significant degenerative changes of the hip joint. Question coxa profunda. Lesser trochanteric enthesopathy or iliopsoas calcific tendinosis. Visualized pelvic ring and sacral arcs are intact. IMPRESSION: No acute osseous abnormality. No significant degenerative changes of the hip joint. Interpreted by: Dixon Dong DO Preliminary Report By: Margarito Rivero Electronically signed By Dixon Dong DO Dictated Date: 07/06/2022 2:09:36 PM Prelim Date: 07/06/2022 3:45:21 PM Sign Date: 07/06/2022 3:45:21 PM Ordering Provider: [facility] 07-06-2022 Note ORIGINAL EXAMINATION: TWO XRAY VIEWS OF THE RIGHT HIP 07/06/2022 8:12 am COMPARISON: None. HISTORY: ORDERING SYSTEM PROVIDED HISTORY: Reason for Exam: chronic right hip pain FINDINGS: No fracture or dislocation. No significant degenerative changes of the hip joint. Question coxa profunda. Lesser trochanteric enthesopathy or iliopsoas calcific tendinosis. Visualized pelvic ring and sacral arcs are intact. IMPRESSION: No acute osseous abnormality. No significant degenerative changes of the hip joint. Interpreted by: Dixon Dong DO Preliminary Report By: Margarito Rivero Electronically signed By Dixon Dong DO Dictated Date: 07/06/2022 2:09:36 PM Prelim Date: 07/06/2022 3:45:21 PM Sign Date: 07/06/2022 3:45:21 PM Ordering Provider: ARCHANA REYES [facility] 09-15-2020 Note HNO ID: [id number] Author: Alison Morton PA-C Service: ? Author Type: Physician Child Advocate Type: Progress Notes Filed: 09/18/2020 10:09 PM Note Text: HISTORY AND PHYSICAL Martínez Valdivia 1965 REFERRING PHYSICIAN: MD Cas CHIEF COMPLAINT: Consult (Colonoscopy) HPI: The patient is a 55 year old male referred for endoscopy. Martínez notes no . Patient denies any change in bowel habits, weight changes, blood in stools, black tarry stools or abdominal pain. Denies family history of colon issues. The patient notes no upper GI complaints. Martínez has undergone prior endoscopy. Last colonoscopy 07/05/[address] Smith with removal of a small tubular adenoma at that time. Patient denies chest pain, shortness of breath or recent hospitalizations. Denies problems with sedation in the past. PAST MEDICAL HISTORY Diagnosis Date - Diarrhea - Esophagitis - Gallbladder disease - Hypertension - Internal hemorrhoids without mention of complication - Irritable bowel syndrome - Other specified gastritis - PMH - PAST MEDICAL HISTORY OF anal pain - Pure hypercholesterolemia PAST SURGICAL HISTORY Procedure Laterality Date - ABLATE HEART DYSRHYTHM 2016 - COLONOS W/REM POLYP SNARE 07/05/2015 transverse colon adenomatous poylp - 5 year follow up - COLONOSCOP W/ OR W/O [email or web address] SPEC 12/27/00 Colonoscopy - EGD W/O OR W/BRUSH/WASH 07/18/04 EGD - EGD W/O OR W/BRUSH/WASH 08/26/2018 EGD - HEART CATHETERIZATION 2016 - LAPAROSCOPIC CHOLEYCYSTECTOMY 08/21/2017 Cholecystectomy, lap - SIGMOIDOSCOPY FLEX DIAG 07/26/11 Current Outpatient Medications Medication Sig - hydroCHLOROthiazide oral liquid 5 mg/mL (CPD) Take by mouth twice daily. - aspirin, enteric coated (ASPIRIN, ENTERIC COATED) 81 mg EC tablet Take 81 mg by mouth once daily. - atorvastatin (LIPITOR) 20 mg tablet 1 tablet once daily. - losartan (COZAAR) 25 mg tablet 1 tablet once daily. - omeprazole (PRILOSEC) 20 mg capsule Take 2 capsules by mouth once daily. - omeprazole (PRILOSEC) 20 mg capsule Take 20 mg by mouth as needed. - hydrocortisone (ANUSOL-HC) 25 mg RECTAL suppository 1 Suppository by RECTAL route daily at bedtime. INSERT (1) RECTALLY AT BEDTIME No current facility-administered medications for this visit. ALLERGIES: Patient has no known allergies. PERSONAL HISTORY: Social History Tobacco Use - Smoking status: Former Smoker Packs/day: 1.50 Years: 20.00 Pack years: 30.00 Quit date: 08/20/2003 Years since quittin.0 - Smokeless tobacco: Never Used Substance Use Topics - Alcohol use: Yes Comment: occasional - social - Drug use: No FAMILY HISTORY: FAMILY HISTORY Problem Relation Age of Onset - Heart Father REVIEW OF SYMPTOMS: The review of systems data was entered by the nurse and reviewed by nc Nursing Notes: Aurora Quiñones LPN 09/13/2020 4:54 PM Signed REVIEW OF SYSTEMS: General: The patient denies fatigue, denies weight loss, denies weight gain, denies feeling hot, and denies feelings of cold. Eyes: The patient denies glaucoma, denies eye injury/surgery, wears glasses or contacts. Ear/Nose/Throat: The patient denies allergies, denies hayfever, denies ear infections, and denies bloody noses. Cardiovascular: The patient denies chest pain, denies heart disease, NOTES high blood pressure,denies cardiac stent, denies prior heart attack, denies irregular heart beat, NOTES high cholesterol, denies poor circulation, denies heart failure, other cardiac issues, denies claudication, denies cold feet, denies peripheral arterial stent. Respiratory: The patient denies tuberculosis, denies pneumonia, denies frequent cough, denies pulmonary embolism, denies shortness of breath, and denies coughing up blood. Gastrointestinal: The patient denies difficulty swallowing, denies acid reflux, denies ulcers, denies vomiting, denies jaundice/hepatitis, denies gallbladder problems, denies black or tarry stools, denies hemorrhoids, denies bleeding from rectum, denies diverticulitis, denies constipation, denies diarrhea, denies loss of stool control, and denies hernias. Kidney/Bladder: The patient denies kidney stones, denies urine infections, and denies bloody urine. Skin: The patient denies a history of skin cancer, denies bleeding/changing moles, and denies a history of skin rash. Neurologic: The patient denies a history of epilepsy/convulsions, denies headaches, denies head/spinal injuries, and denies stroke/TIA. Psychiatric: The patient denies psychiatric medications, denies depression, and denies voices, denies substance abuse. Endocrine: The patient denies thyroid disorders, denies diabetes, and denies hormonal problems. Hematologic: The patient denies a history of bruising, denies bleeding, and denies anemia, denies blood clots. Infections: The patient denies a history of measles and mumps, denies rheumatic fever, and denies sexually transmitted diseases. Musculoskeletal: Th (more content not included)... [facility] Evaluation + Plan note Future Appointments Appointment Date:05/18/2021 08:00:00 AM Scheduled Provider:ARCHANA REYES APRN, CNP Location:[facility] [place] Appointment Type:PC OV Follow Up Future Scheduled TestsComplete Blood Count 09/29/20Lipid Profile 09/29/20Complete Metabolic Panel 09/29/20 [facility] Evaluation + Plan note Future Appointments Appointment Date:11/13/2021 08:00:00 AM Scheduled Provider:ARCHANA REYES APRN, CNP Location:[facility] [place] Appointment Type:PC OV [facility] Evaluation + Plan note Future Appointments Appointment Date:06/22/2022 08:40:00 AM Scheduled Provider:ARCHANA REYES APRN, CNP Location:[facility] [place] Appointment Type:PC OV Follow Up Future Scheduled TestsLipid Profile 06/17/22Microalbumin Level Urine 07/23/22Microalbumin Level Urine 06/17/22Complete Metabolic Panel 06/17/22 [facility] Evaluation + Plan note Future Appointments Appointment Date:12/20/2022 08:30:00 AM Scheduled Provider: Location:[facility] [place] Appointment Type:PC Nurse Lab Appointment Date:12/27/2022 08:20:00 AM Scheduled Provider:ARCHANA REYES APRN, CNP Location:[facility] [place] Appointment Type:PC OV Follow Up Future Scheduled TestsProstate Specific Antigen 12/20/22A1C Hemoglobin 12/20/22Lipid Profile 12/20/22Lipid Profile 06/17/22Microalbumin Level Urine 12/20/22Microalbumin Level Urine 07/23/22Microalbumin Level Urine 06/17/22Complete Metabolic Panel 12/20/22Complete Metabolic Panel 06/17/22 [facility] Evaluation + Plan note Future Appointments Appointment Date:12/27/2022 08:20:00 AM Scheduled Provider:ARCHANA REYES APRN - MARIELENA Location:[facility] [place] Appointment Type:PC OV Follow Up [facility] Evaluation + Plan note Future Appointments Appointment Date:07/11/2023 07:20:00 AM Scheduled Provider:ARCHANA REYES APRN - MARIELENA Location:[facility] [place] Appointment Type:PC OV Follow Up Future Scheduled TestsAlbumin/Creatinine Ratio, Random Urine 07/04/23 [facility] Evaluation + Plan note Future Appointments Appointment Date:08/08/2023 07:00:00 AM Scheduled Provider:ARCHANA REYES APRN - MARIELENA Location:[facility] [place] Appointment Type:PC OV Appointment Date:01/09/2024 08:00:00 AM Scheduled Provider: Location:[facility] [place] Appointment Type:PC Nurse Lab Appointment Date:01/14/2024 07:00:00 AM Scheduled Provider:ARCHANA REYES APRN - MARIELENA Location:[facility] [place] Appointment Type:PC Wellness Annual Future Scheduled TestsProstate Specific Antigen 01/15/24A1C Hemoglobin 01/15/24Lipid Profile 01/15/24Albumin/Creatinine Ratio, Random Urine 07/04/23Complete Metabolic Panel 01/15/24US Soft Tissue Mass 08/03/23 [facility] Evaluation + Plan note Future Appointments Appointment Date:01/09/2024 08:00:00 AM Scheduled Provider: Location:[facility] [place] Appointment Type:PC Nurse Lab Appointment Date:01/14/2024 07:00:00 AM Scheduled Provider:AMYARCHANA APRN, CNP Location:[facility] [place] Appointment Type:PC Wellness Annual Future Scheduled TestsProstate Specific Antigen 01/15/24A1C Hemoglobin 01/15/24Lipid Profile 01/15/24Albumin/Creatinine Ratio, Random Urine 07/04/23Complete Metabolic Panel 01/15/24US Soft Tissue Mass 08/03/23 [facility] Evaluation + Plan note Future Appointments Appointment Date:01/14/2024 07:00:00 AM Scheduled Provider:ARCHANA REYES APRN, CNP Location:[facility] [place] Appointment Type: Wellness Annual Future Scheduled TestsAlbumin/Creatinine Ratio, Random Urine 07/04/23US Soft Tissue Mass 08/03/23 [facility] Evaluation + Plan note Future Appointments Appointment Date:02/27/2024 09:45:00 AM Scheduled Provider: Location:[facility] Appointment Type:US Breast Right Complete Appointment Date:07/09/2024 08:00:00 AM Scheduled Provider: Location:[facility] [place] Appointment Type:PC Nurse Lab Appointment Date:07/14/2024 07:00:00 AM Scheduled Provider:ARCHANA REYES APRN, CNP Location:[facility] [place] Appointment Type:PC OV Future Scheduled TestsTestosterone,Free and Total 01/28/24Sex Horm Binding Glob, Serum 01/29/24Estradiol Level 01/29/24Luteinizing Hormone 01/29/24Prolactin Level 01/29/24Thyroid Stimulating Hormone 01/28/24A1C Hemoglobin 07/13/24Follicle Stimulating Hormone Level 01/29/24Lipid Profile 07/13/24Albumin/Creatinine Ratio, Random Urine 07/13/24Albumin/Creatinine Ratio, Random Urine 07/04/23Complete Metabolic Panel 07/13/24MA Mammo Screening Bilateral w/ Ghulam 02/04/24US Breast Right Complete 02/27/24US Soft Tissue Mass 08/03/23 [facility] Evaluation note Diagnosis Onset Date Essential (primary) hypertension chronic Hyperlipidemia chronic Supraventricular tachycardia [facility] Work Phone: Hospital course Narrative No data available for this section [facility] Hospital Discharge instructions No data available for this section [facility] Progress note No data available for this section [facility] Summary Purpose Family History No Family History Records Found Relationship Condition Age at Onset Recorded Date/T [place] father Myocardial infarction Unknown Coronary artery disease 49 brother Coronary artery disease 49 Presence of stent in coronary artery Unkn own Advance Directives No Advanced Directives Records Found Advance Directive Response Recorded Date/ Time Living Will No August 20, 2017 9:16am Power of Tire Manager No August 20 9:16am Chief Complaint and Reason for Visit Chief Complaint 1 Y FU HYPERLIPIDEMIA HYPERLIPIDEMIA Reason for Visit Essential (primary) hypertension Hyperlipidemia Supraventricular tachycardia Chief Complaint 1 Y FU HYPERLIPIDEMIA HYPERLIPIDEMIA HYPERTENSION; ELEVATED CALCIUM SCORE HYPERTENSION; ELEVATED CALCIUM SCORE Reason for Visit Essential (primary) hypertension Hyperlipidemia Supraventricular tachycardia Additional Source Comments (unrecognized sect ion and content) No Status Records FoundNo Status Records FoundNo Status Records FoundNo Status Records FoundNo Status Records Found INFORMATION SOURCE (unrecogn ized section and content) DATE CREATED AUTHOR 02/17/2019 [facility] DATE CREATED AUTHOR AUTHOR'S ORGANIZ ATION 05/30/2021 [facility] DATE CREATED AUTHOR AUTHOR'S ORGANIZ ATION 08/16/2023 [facility] DATE CREATED AUTHOR AUTHOR'S ORGANIZ ATION 01/11/2024 [facility] ([place] DATE CREATED AUTHOR AUTHOR'S ORGANIZ ATION 07/25/2024 [facility] Care Team (unrecognized sect ion and content) Care Team Personnel Name: ARCHANA REYES APRN - LONG WALL MINING MACHINE TENDER Position: P4 Advanced Practice Nurse Med Service: Employed Provider Member Role: Primary Care Physician Address: Address: [address] [place] [id number] [place] [address] Care Team Related Persons Name: LINDY VALDIVIA Care Team Personnel Name: ARCHANA REYES APRN - LONG WALL MINING MACHINE TENDER Position: P4 Advanced Practice Nurse Member Role: Primary Care Physician Address: Address: [address] [place] [id number] [place] Care Team Related Persons Name: LINDY VALDIVIA Care Team Personnel Name: ARCHANA REYES SLITTER SCORER - LONG WALL MINING MACHINE TENDER Position: P4 Advanced Aluminum Sheet Cutter Member Role: Primary Care Physician Address: Address: [address] [facility] [place] [address]- Care Team Related Persons Name: LINDY VALDIVIA Care Teams (unrecognized sec tion and content) Team Status: Active Member Role Status Dates Archana Reyes Family Provider Active Archana Reyes CUT OUT OPERATOR, CUT OUT OPERATOR-C Primary Care Provider Active Team Status: Inactive Member Role Status Dates Archana Reyes CUT OUT OPERATOR, CUT OUT OPERATOR-C Primary Care Provider, Referring Provider Active Dr. Christopher Wells MD Attending Provider Active Team Status: Active Member Role Status Dates Archana Reyes CUT OUT OPERATOR, CUT OUT OPERATOR-C Primary Care Provider Active Dr. Christopher Wells MD Attending Provider, Referring Provider, Other Provider Active Team Status: Inactive Member Role Status Dates Archana Reyes CUT OUT OPERATOR, CUT OUT OPERATOR-C Primary Care Provider Active Dr. Christopher Wells MD Attending Provider, Referring Pro vider Active Goals (unrecognized section and content) Goals may be documented in a n alternate section FOR RECORDS PERTAINING TO PATIENTS WHO ARE OR HAVE BEEN ENROLLED IN A CHEMICAL DEPENDENCY/SUBSTANCEABUSE PROGRAM, SOME INFORMATION MAY BE OMITTED. This clinical summary was aggregated from multiple sources. Caution should be exercised in using it in the provision of clinical care. This summary normalizes information from multiple sources, and as a consequence, information in this document may materially change the coding, format and clinical context of patient data. In addition, data may be omitted in some cases. CLINICAL DECISIONS SHOULD BE BASED ON THE PRIMARY CLINICAL RECORDS. [facility] [employer] provides no warranty or guarantee of the accuracy or completeness of information in this document.
[2024-10-08] MEDS: morphine 8 MG/ML Syringe 6 MG IV (22:40)
[2024-10-08] MEDS: Ondansetron 4 MG/2 ML Vial IV (22:40)
[2024-10-08 22:47] VITALS: BP 136/52; PULSE 78; RESP 16; TEMP 36.8; O2SAT 95
[2024-10-08 23:06] VITALS: BMI 36.5
[2024-10-08] MEDS: 0.9% Saline Lock 10 ML Syringe IV (23:32)
[2024-10-08] MEDS: 0.9% Normal Saline (1000mL) 1,000 ML 100 ML IV (23:33)
[2024-10-08] MEDS: Pantoprazole Sodium 40 MG in 0.9% Normal Saline (100mL MB+) 100 ML 330 MG IV (23:33)
[2024-10-08 23:39] VITALS: BP 117/63; PULSE 70; RESP 18; TEMP 36.9; O2SAT 96
[2024-10-09 03:34] VITALS: BMI 36.4
--- NOTE | 2024-10-09 04:47 | RAD_ITS ---
PROCEDURE: ABDOMEN SINGLE VIEW (PORTABLE) 10/09/2024 REASON FOR EXAM: PSBO TECHNIQUE: Single view abdomen. COMPARISON: CT abdomen and pelvis on 10/09/2019 FINDINGS: Bowel gas: Loops of air-filled small bowel in the left abdomen measure up to 5 cm in diameter. There is a round focus of air in the pelvis measuring 4.5 cm, superimposed with a 7.5 cm ovoid focus of hyperdensity. Calcifications: No suspicious calcifications. Bones: There are degenerative changes and rightward curvature of the lumbar spine. Transitional lumbosacral anatomy. RAD/Abdomen Single View (Portable) IMPRESSION: 1. Dilated air-filled loops of small bowel, which remains concerning for obstr uction. 2. Superimposed ovoid hyperdensity and focus of air in the pelvis, which could be rectal contents. No urinary catheter tubing is visualized to suggest that this is a catheter balloon. Correlate with exam. Reading Location: [facility]
[2024-10-09 05:05] VITALS: BP 119/54; PULSE 68; RESP 18; TEMP 36.7; O2SAT 95
[2024-10-09] MEDS: 0.9% Saline Lock 10 ML Syringe IV (05:09)
[2024-10-09 05:15] LABS: Absolute Lymphocyte Count 1.66 X10^3/uL (0.83-4.51); Absolute Neutrophil Count 4.9 X10^3/uL (2.0-7.7); Basophil# 0.06 X10^3/uL; Basophil% 0.8 % (0-1); Eosinophil# 0.17 X10^3/uL; Eosinophils% 2.2 % (0-5); Hematocrit 44.7 % (40-54); Hemoglobin 14.8 g/dL (13.0-16.5); Lymphocyte # 1.66 X10^3/ul (0.83-4.51); Lymphocyte % 21.6 % (19-41); Mean Corp Hgb Conc 33.1 g/dL (32-36); Mean Corpuscular Hgb 30.2 pg (27.0-32.0); Mean Corpuscular Volume 91.2 fL (80-94); Mean Platelet Vol. 9.5 fl (6.2-12.0); Monocyte# 0.82 X10^3/uL; Monocyte% 10.7 % (0-10); NRBC Flagged by Analyzer 0 % (0-5); Neutrophil # 4.94 X10^3/uL (2.7-7.7); Neutrophil % 64.4 % (47-70); Platelet Count 192 K/mm3 (150-450); RBC Distribution Width CV 12.4 % (11.6-14.6); RBC Distribution Width SD 41.5 fl (35.1-43.9); White Blood Count 7.7 K/mm3 (4.4-11.0)
[2024-10-09 05:56] LABS: ALB/GLOB Ratio 1.7 RATIO (0.9-2.4); AST(SGOT) 19 U/L (<=37); Alanine Aminotransfer ALT/SGPT 23 U/L (<=46); Alkaline Phosphatase 86 U/L (40-129); Anion Gap 11 (5-15); BUN 11 mg/dL (4-19); BUN/Creat Ratio 11.8 RATIO (10-20); Calcium,Total 9.1 mg/dL (7.6-11.0); Carbon Dioxide 25.6 mmol/L (21.0-32.0); Chloride 101 mmol/L (98-108); EST Glomerular Filtration Rate 99 (>60); Estimated Creatinine Clearance 113.84 ml/min (50-250); Globulin 2.3 g/dL (2.2-4.2); Glucose 122 mg/dL (70-99); Potassium 3.8 mmol/L (3.3-5.1); Protein, Total 6.4 g/dL (5.9-8.4); Sodium Level 138 mmol/L (133-145); Total Bilirubin 1.41 mg/dL (0.00-1.30)
--- NOTE | 2024-10-09 06:24 | EKG12_ITS ---
Test Reason : SOB Blood Pressure : */* mmHG Vent. Rate : 73 BPM Atrial Rate : 73 BPM P-R Int : 142 ms QRS Dur : 100 ms QT Int : 432 ms P-R-T Axes : 63 6 12 degrees QTcB Int : 475 ms Normal sinus rhythm Normal ECG When compared with ECG of 21-Aug-2017 11:12, Premature atrial complexes are no longer Present Confirmed by Edward Argueta ([id number]), editorial cartoonist LYNNETTE BYERS ([id number]) on 10/12/2024 9:11:00 AM Referred By: ROHAN Confirmed By: Edward Argueta
--- NOTE | 2024-10-09 07:41 | PN.HOSP_ITS ---
Reason for Visit Reason for Visit: Diagnoses Partial intestinal obstruction, unspecified as to cause (10/08/24) Subjective Subjective Feeling better. Tolerating clears so far. Objective Data Objective Data Vital Signs: Vital Signs Temp Pulse Resp BP Pulse Ox O2 Del Method 36.7 C 68 18 119/54 L 95 Room Air 10/09/24 05:05 10/09/24 05:05 10/09/24 05:05 10/09/24 05:05 10/09/24 05:05 10/09/24 05:05 Oxygen Delivery Method Room Air Weight: 115.4 kg Body Mass Index (BMI) 36.4 Intake & Output: Intake and Output for Last 24 Hours 10/07/24 10/08/24 10/09/24 23:59 23:59 23:59 Intake Total 100 / 100 Balance 100 / 100 Lab / Micro Data 10/09/24 04:34 10/09/24 07:18 Labs: Laboratory Results - last 24 hr 10/08/24 20:13: WBC 9.3, RBC 5.13, Hgb 15.8, Hct 45.7, MCV 89.1, MCH 30.8, MCHC 34.6, RDW Std Deviation 40.2, RDW Coeff of Vesna 12.2, Plt Count 165, MPV 9.8, Immature Gran % (Auto) 0.400, Neut % (Auto) 70.1 H, Lymph % (Auto) 16.4 L, [place] % (Auto) 10.1 H, Eos % (Auto) 2.6, Baso % (Auto) 0.4, Absolute Neuts (auto) 6.6, Absolute Lymphs (auto) 1.53, Nucleated RBC % 0, Sodium 135, Potassium 3.6, Chloride 99, Carbon Dioxide 21.1, Anion Gap 15, BUN 11, Creatinine 0.85, Estim Creat Clear Calc 123.50, Est GFR (MDRD) Non-Af 101, BUN/Creatinine Ratio 13.2, G lucose 118 H, Calcium 9.2, Total Bilirubin 1.39 H, AST 27, ALT 26, Alkaline Phosphatase 95, Total Protein 6.8, Albumin 4.2, Globulin 2.6, Albumin/Globulin Ratio 1.6, Lipase 13 10/09/24 04:34: WBC 7.7, RBC 4.90, Hgb 14.8, Hct 44.7, MCV 91.2, MCH 30.2, MCHC 33.1, RDW Std Deviation 41.5, RDW Coeff of Vesna 12.4, Plt Count 192, MPV 9.5, Immature Gran % (Auto) 0.300, Neut % (Auto) 64.4, Lymph % (Auto) 21.6, [place] % (Auto) 10.7 H, Eos % (Auto) 2.2, Baso % (Auto) 0.8, Absolute Neuts (auto) 4.9, Absolute Lymphs (auto) 1.66, Nucleated RBC % 0, Sodium 138, Potassium 3.8, Chloride 101, Carbon Dioxide 25.6, Anion Gap 11, BUN 11, Creatinine 0.90, Estim Creat Clear Calc 113.84, Est GFR (MDRD) Non-Af 99, BUN/Creatinine Ratio 11.8, G lucose 122 H, Calcium 9.1, Total Bilirubin 1.41 H, AST 19, ALT 23, Alkaline Phosphatase 86, Total Protein 6.4, Albumin 4.0, Globulin 2.3, Albumin/Globulin Ratio 1.7 Radiography Diagnostic Testing: Radiology Impression Abdomen/Pelvis CT 10/08/24 20:25 IMPRESSION: 1. Mildly dilated thickened small bowel loops along the central and left hemiabdomen concerning for infectious/inflammatory enteritis with superimposed ileus/partial obstruction which may relate in part to a small umbilical hernia. See comments above. 2. Abdominal aortic aneurysm measuring up to 3.9 cm. 3. Hepatic steatosis. Reading [facility] 10/09/24 04:47 IMPRESSION: 1. Dilated air-filled loops of small bowel, which remains concerning for obstruction. 2. Superimposed ovoid hyperdensity and focus of air in the pelvis, which could be rectal contents. No urinary catheter tubing is visualized to suggest that this is a catheter balloon. Correlate with exam. Reading Location: [id number] Physical Exam Const alert and no apparent distress HEENT head/scalp atraumatic and moist oral mucous membranes Resp normal respiratory effort and no retractions GI normal to inspection, nondistended, normoactive bowel sounds, soft to palpation, non-tender and non-distended Assessment & Plan Assessment/Plan (1) Abdominal pain: PLAN: enteritis v ileus v SBO. Hold off on abx at this time given no leukocytosis nor fever. More likely enteritis. Feeling better. Tolerating clears so far. Advance to full, then if tolerates, advance to transitional; and if tolerates DC home. NPO. Continue IVF for now. General surgery on consult. Pain control. Antiemetics. PLAN: Plan VTE prophylaxis: LMWH. Charges/Coding Visit Charges Inpatient E&M: 70471 Subs Hosp L2
[2024-10-09 09:06] LABS: Magnesium 2.3 mg/dL (1.5-2.2); Phosphorus 3.8 mg/dL (2.7-4.5)
[2024-10-09 09:33] LABS: Albumin, Serum 4.1 g/dL (3.5-5.0); Anion Gap 12 (5-15); BUN 11 mg/dL (4-19); BUN/Creat Ratio 12.3 RATIO (10-20); Carbon Dioxide 24.6 mmol/L (21.0-32.0); Chloride 101 mmol/L (98-108); Creatinine, Serum 0.87 mg/dL (0.70-1.20); EST Glomerular Filtration Rate 100 (>60); Estimated Creatinine Clearance 117.76 ml/min (50-250); Glucose 117 mg/dL (70-99); Potassium 3.7 mmol/L (3.3-5.1); Sodium Level 137 mmol/L (133-145)
[2024-10-09] MEDS: Pantoprazole Sodium 40 MG in 0.9% Normal Saline (100mL MB+) 100 ML 330 MG IV (09:45)
[2024-10-09 10:59] VITALS: BP 141/82; PULSE 66; RESP 16; TEMP 36.6; O2SAT 97
[2024-10-09 11:20] VITALS: O2SAT 97
--- NOTE | 2024-10-09 14:39 | EX.PCM.CON.S ---
Assessment & Plan Assessment/Plan (1) Partial small bowel obstruction: PLAN: Plan The patient is a 59-year-old male who presented overnight with abdominal pain symptoms. CT scan showed partial small bowel obstruction and question of enteritis. Clinically he states that he is doing much better this morning. I have recommended that we start a clear liquid diet and see how he tolerates diet advancement. We can certainly advance his diet later today if he continues to tolerate. I do not feel that his symptoms are related to his umbilical hernia repair. Will continue to follow. Dr. Elizabeth to cover until October 13 HPI Consult Data Date of Consult: 10/09/24 HPI Narrative Reason for Consultation: Partial small bowel obstruction HPI Narrative: MARTÍNEZ VALDIVIA, is a 59 M who presented last night to the [facility] emergency department with epigastric abdominal discomfort along with cramping. Patient has a history of obesity, hypertension hyperlipidemia, SVT, AAA and GERD. From a surgical standpoint, he has had a previous umbilical hernia repair with mesh performed by Dr. Townsend back in 2019. He has not had any issues or problems from this hernia repair. Patient states that he was in his usual state of health for most of the day yesterday. In the evening he was doing some work in his garage and rather than eating dinner, he had some chips around 10 PM. He began having abdominal discomfort around 1230. This discomfort was in the epigastric area. He also had pretty intense reflux along with nausea. Patient presented to the emergency room for evaluation. He underwent laboratory testing which was fairly unremarkable. He underwent a CT scan and this showed some dilated loops of small bowel in the central abdomen along with some mild wall thickening of the small bowel loops. Otherwise no other abnormalities were noted. These findings were thought to possibly represent enteritis with superimposed ileus/partial bowel obstruction. He was subsidy admitted. This morning he stated that his pain was greatly improved. He was passing gas. He stated that his last couple of bowel movements prior to the pain starting was actually quite loose. Surgical consult was obtained for further evaluation and treatment recommendations. [facility] Medical History AAA (abdominal aortic aneurysm) Obesity Essential (primary) hypertension GERD (gastroesophageal reflux disease) Premature atrial contractions Hyperlipidemia Supraventricular tachycardia Home Medications ?Medication ?Instructions ?Recorded ?Last Taken ?Type aspirin 81 mg chewable tablet 81 mg PO DAILY@0800 06/24/15 10/07/24 History amlodipine 5 mg tablet 5 mg PO QHS 08/09/20 10/07/24 History hydrochlorothiazide 12.5 mg tablet 12.5 mg PO DAILY 09/06/22 10/08/24 History losartan 100 mg tablet 100 mg PO DAILY 09/06/22 10/08/24 History rosuvastatin 20 mg tablet 20 mg PO QDAY 08/16/23 10/07/24 History Allergy/AdvReac Type Severity Reaction Status Date / Time No Known Allergies Allergy Verified 10/08/24 19:45 Family History Father , Age 54 of CAD (SD age 49) Myocardial infarction CAD (coronary artery disease), Onset Age: 49 CABG Brother CAD (coronary artery disease), Onset Age: 49 Stented coronary artery Mother Alzheimer's dementia Surgical History History of cholecystectomy History of umbilical hernia repair History of cardiac radiofrequency ablation (RFA) (05/25/16) History of left heart catheterization (06/27/15) Social History household members: none Smoking Status: Former smoker how long ago did patient quit smokin alcohol intake: current alcohol intake frequency: a few times a week Alcohol type: beer substance use type: does not use caffeine: Yes Type: carbonated beverages what type of physical activity do you participate in: none seatbelt use: always do you feel safe at home: Yes Physical Exam Narrative He is alert and oriented x 3. He is in no acute distress. Head is normocephalic and atraumatic. Pupils are equal round and reactive to light. Abdomen is soft and somewhat obese. There is significant distention. Minimal discomfort diffusely. No evidence of umbilical hernia recurrence. No skin changes at the umbilicus. No appreciable right upper quadrant tenderness Lab / Micro Data 10/09/24 04:34 10/09/24 07:18 Labs: Laboratory Results - last 24 hr 10/08/24 20:13: WBC 9.3, RBC 5.13, Hgb 15.8, Hct 45.7, MCV 89.1, MCH 30.8, MCHC 34.6, RDW Std Deviation 40.2, RDW Coeff of Vesna 12.2, Plt Count 165, MPV 9.8, Immature Gran % (Auto) 0.400, Neut % (Auto) 70.1 H, Lymph % (Auto) 16.4 L, [place] % (Auto) 10.1 H, Eos % (Auto) 2.6, Baso % (Auto) 0.4, Absolute Neuts (auto) 6.6, Absolute Lymphs (auto) 1.53, Nucleated RBC % 0, Sodium 135, Potassium 3.6, Chloride 99, Carbon Dioxide 21.1, Anion Gap 15, BUN 11, Creatinine 0.85, Estim Creat Clear Calc 123.50, Est GFR (MDRD) Non-Af 101, BUN/Creatinine Ratio 13.2, Glucose 118 H, Calcium 9.2, Total Bilirubin 1.39 H, AST 27, ALT 26, Alkaline Phosphatase 95, Total Protein 6.8, Albumin 4.2, Globulin 2.6, Albumin/Globulin Ratio 1.6, Lipase 13 10/09/24 04:34: WBC 7.7, RBC 4.90, Hgb 14.8, Hct 44.7, MCV 91.2, MCH 30.2, MCHC 33.1, RDW Std Deviation 41.5, RDW Coeff of Vesna 12.4, Plt Count 192, MPV 9.5, Immature Gran % (Auto) 0.300, Neut % (Auto) 64.4, Lymph % (Auto) 21.6, [place] % (Auto) 10.7 H, Eos % (Auto) 2.2, Baso % (Auto) 0.8, Absolute Neuts (auto) 4.9, Absolute Lymphs (auto) 1.66, Nucleated RBC % 0, Sodium 138, Potassium 3.8, Chloride 101, Carbon Dioxide 25.6, Anion Gap 11, BUN 11, Creatinine 0.90, Estim Creat Clear Calc 113.84, Est GFR (MDRD) Non-Af 99, BUN/Creatinine Ratio 11.8, Glucose 122 H, Calcium 9.1, Phosphorus 3.8 10/09/24 04:34: Phosphorus Cancelled 10/09/24 04:34: Phosphorus Cancelled, Magnesium 2.3 H 10/09/24 04:34: Magnesium Cancelled, Total Bilirubin 1.41 H, AST 19, ALT 23, Alkaline Phosphatase 86, Total Protein 6.4, Albumin 4.0 10/09/24 04:34: Albumin Cancelled, Globulin 2.3, Albumin/Globulin Ratio 1.7 10/09/24 07:18: Sodium 137, Potassium 3.7, Chloride 101, Carbon Dioxide 24.6, Anion Gap 12, BUN 11, Creatinine 0.87, Estim Creat Clear Calc 117.76, Est GFR (MDRD) Non-Af 100, BUN/Creatinine Ratio 12.3, Glucose 117 H, Calcium 9.0, Albumin 4.1, Blood Type A POSITIVE, Antibody Screen NEGATIVE Imaging Radiology Impression Abdomen/Pelvis CT 10/08/24 20:25 IMPRESSION: 1. Mildly dilated thickened small bowel loops along the central and left hemiabdomen concerning for infectious/inflammatory enteritis with superimposed ileus/partial obstruction which may relate in part to a small umbilical hernia. See comments above. 2. Abdominal aortic aneurysm measuring up to 3.9 cm. 3. Hepatic steatosis. Reading Location: [facility] X-Ray 10/09/24 04:47 IMPRESSION: 1. Dilated air-filled loops of small bowel, which remains concerning for obstruction. 2. Superimposed ovoid hyperdensity and focus of air in the pelvis, which could be rectal contents. No urinary catheter tubing is visualized to suggest that this is a catheter balloon. Correlate with exam. Reading Location: [facility] Charges/Coding Visit Charges Inpatient E&M: 01774 Init Hosp L3
--- NOTE | 2024-10-09 15:26 | CASEMGMT ---
Social Work SW spoke with pt and offered to complete advance directives during stay. Pt denied stating he is going to his privacy attorney after stay to complete all documents. Paige Junior MSW GROCERY ASSOCIATE
--- NOTE | 2024-10-09 15:39 | PCM.DC.SUM ---
Providers Date of Admission: 10/08/24 Primary Care Physician: Geronimo Reyes, SYSTEMS PROGRAMMER-C Consultations 10/08/24 23:09 Consult: General Surgery Routine Consulting Provider: Sagar Medina Reason for Consult: pSBO EMERGENT Consult: No MD Notified: Yes Date Notified: 10/08/24 Time Notified: 22:07 Method of Notification: ED Physician Initiated Reason For Visit: PSBO Diagnosis Discharge Diagnosis (1) Enteritis: Status: Acute Code(s): K52.9 - Noninfective gastroenteritis and colitis, unspecified Plan VTE prophylaxis: LMWH. Medications at Discharge Home Medications aspirin 81 mg chewable tablet 81 mg PO DAILY@0800 06/24/15 amlodipine 5 mg tablet 5 mg PO QHS 08/09/20 hydrochlorothiazide 12.5 mg tablet 12.5 mg PO DAILY 09/06/22 losartan 100 mg tablet 100 mg PO DAILY 09/06/22 rosuvastatin 20 mg tablet 20 mg PO QDAY 08/16/23 dicyclomine 10 mg capsule 10 mg PO TID PRN abdominal cramp #14 caps 10/09/24 Hospital Course Operations None Procedures None Summary of Care Provided Hospital Course: Patient presents with abdominal pain. He describes the abdominal pain as being crampy. Patient was concerned because he had a friend who had a aortic aneurysm issue and he has a known history of aortic aneurysm is being monitored. His abdominal aortic aneurysm measured 3.9 cm but it was noted that he had thickened small bowel loops and was concerning for ileus versus SBO. Patient is been having flatus and overall doing better. He has tolerated diet thus far. Patient was seen in consultation by general surgery and no surgical intervention was necessary. Patient will be discharged home as he is complaining of abdominal cramping he will be discharged with Bentyl. Weight / BMI Weight Weight: 115.4 kg Body Mass Index (BMI) 36.4 ABG / Lab / Microbiology Data 10/09/24 04:34 10/09/24 07:18 Laboratory: Laboratory Results - last 24 hr 10/08/24 20:13: WBC 9.3, RBC 5.13, Hgb 15.8, Hct 45.7, MCV 89.1, MCH 30.8, MCHC 34.6, RDW Std Deviation 40.2, RDW Coeff of Vesna 12.2, Plt Count 165, MPV 9.8, Immature Gran % (Auto) 0.400, Neut % (Auto) 70.1 H, Lymph % (Auto) 16.4 L, [place] % (Auto) 10.1 H, Eos % (Auto) 2.6, Baso % (Auto) 0.4, Absolute Neuts (auto) 6.6, Absolute Lymphs (auto) 1.53, Nucleated RBC % 0, Sodium 135, Potassium 3.6, Chloride 99, Carbon Dioxide 21.1, Anion Gap 15, BUN 11, Creatinine 0.85, Estim Creat Clear Calc 123.50, Est GFR (MDRD) Non-Af 101, BUN/Creatinine Ratio 13.2, Glucose 118 H, Calcium 9.2, Total Bilirubin 1.39 H, AST 27, ALT 26, Alkaline Phosphatase 95, Total Protein 6.8, Albumin 4.2, Globulin 2.6, Albumin/Globulin Ratio 1.6, Lipase 13 10/09/24 04:34: WBC 7.7, RBC 4.90, Hgb 14.8, Hct 44.7, MCV 91.2, MCH 30.2, MCHC 33.1, RDW Std Deviation 41.5, RDW Coeff of Vesna 12.4, Plt Count 192, MPV 9.5, Immature Gran % (Auto) 0.300, Neut % (Auto) 64.4, Lymph % (Auto) 21.6, [place] % (Auto) 10.7 H, Eos % (Auto) 2.2, Baso % (Auto) 0.8, Absolute Neuts (auto) 4.9, Absolute Lymphs (auto) 1.66, Nucleated RBC % 0, Sodium 138, Potassium 3.8, Chloride 101, Carbon Dioxide 25.6, Anion Gap 11, BUN 11, Creatinine 0.90, Estim Creat Clear Calc 113.84, Est GFR (MDRD) Non-Af 99, BUN/Creatinine Ratio 11.8, Glucose 122 H, Calcium 9.1, Phosphorus 3.8 10/09/24 04:34: Phosphorus Cancelled 10/09/24 04:34: Phosphorus Cancelled, Magnesium 2.3 H 10/09/24 04:34: Magnesium Cancelled, Total Bilirubin 1.41 H, AST 19, ALT 23, Alkaline Phosphatase 86, Total Protein 6.4, Albumin 4.0 10/09/24 04:34: Albumin Cancelled, Globulin 2.3, Albumin/Globulin Ratio 1.7 10/09/24 07:18: Sodium 137, Potassium 3.7, Chloride 101, Carbon Dioxide 24.6, Anion Gap 12, BUN 11, Creatinine 0.87, Estim Creat Clear Calc 117.76, Est GFR (MDRD) Non-Af 100, BUN/Creatinine Ratio 12.3, Glucose 117 H, Calcium 9.0, Albumin 4.1, Blood Type A POSITIVE, Antibody Screen NEGATIVE Radiography Diagnostic Testing: Radiology Impression Abdomen/Pelvis CT 10/08/24 20:25 IMPRESSION: 1. Mildly dilated thickened small bowel loops along the central and left hemiabdomen concerning for infectious/inflammatory enteritis with superimposed ileus/partial obstruction which may relate in part to a small umbilical hernia. See comments above. 2. Abdominal aortic aneurysm measuring up to 3.9 cm. 3. Hepatic steatosis. Reading Location: [facility] X-Ray 10/09/24 04:47 IMPRESSION: 1. Dilated air-filled loops of small bowel, which remains concerning for obstruction. 2. Superimposed ovoid hyperdensity and focus of air in the pelvis, which could be rectal contents. No urinary catheter tubing is visualized to suggest that this is a catheter balloon. Correlate with exam. Reading Location: [id number]/C Instructions Discharge Diet: - (Glenn diet, advance as tolerated.) DC O2, CPAP, BIPAP Needs Home O2 Discharge instructions: No Meaningful Use Info Meaningful Use Meaningful Use Diagnoses (Choose all that apply): None applicable Ischemic Stroke Statin Dosing Therapy Reference: STATIN DOSE THERAPY REFERENCE: * Patients > 75 years receive moderate or high dose statin therapy. * Patients 75 years or YOUNGER should receive HIGH intensity statin dose unless contraindicated. You will be required to document reason for non-treatment if statin daily dose does not meet guidelines. HIGH DOSE STATIN THERAPY DAILY Atorvastatin > than or = to 40 mg Rosuvastatin > than or = to 20 mg Amlodipine + Atorvastatin > than or = to 2.5/40 mg Ezetimibe + Simvastatin 10/80 mg Simvastatin 80mg Discharge Plan Admission Admit Date/Time: 10/08/24 22:06 Primary Reason for Your Visit: Enteritis Attending Provider: Fermin Salinas Primary Care Provider: Geronimo Reyes NP Consulting Providers: Sagar Medina; oR Hernandez Discharge Orders/Prescriptions Prescriptions: New dicyclomine 10 mg capsule 10 mg PO TID PRN (Reason: abdominal cramp) Qty: 14 0RF Continued amlodipine 5 mg tablet 5 mg PO QHS losartan 100 mg tablet 100 mg PO DAILY hydrochlorothiazide 12.5 mg tablet 12.5 mg PO DAILY rosuvastatin 20 mg tablet 20 mg PO QDAY aspirin 81 MG tablet,chewable 81 mg PO DAILY@0800 Patient Comments: STATES WAS NOT TOLD TO STOP Referrals / Follow Up: Geronimo Reyes SYSTEMS PROGRAMMER, SYSTEMS PROGRAMMER-C [Primary Care Provider] - Within 2 Weeks Disposition Disposition (needs filled in before D/C Order can be placed): Home, Self Care Charges/Coding Visit Charges Inpatient E&M: 79606 Disch Hosp
[2024-10-09 15:57] VITALS: BP 132/83; PULSE 75; RESP 14; TEMP 36.4; O2SAT 96
--- NOTE | 2024-10-09 16:15 | CASEMGMT ---
AMALIA STEPHENS NOTE: RN CM to room. Pt sitting on edge of bed, brother @ bedside. Pt states he lives alone, is independent, drives, uses no DME, and has no discharge needs or concerns. Genna CHIUN AMALIA CM
== END 2024-10-09 16:49 | disposition home or self-care (01) ==
LOC: ED 21:55 → MS3 22:17
PROVIDERS: Anesthesiology; Physician Assistant; Admitting Provider Family Medicine; Emergency Provider Emergency Medicine; PCP Nurse Practitioner Family
DX: K56.600 Partial intestinal obstruction, unspecified as to cause (principal); Z87.891 Personal history of nicotine dependence; E78.5 Hyperlipidemia, unspecified; I10 Essential (primary) hypertension; E66.9 Obesity, unspecified; K21.9 Gastro-esophageal reflux disease without esophagitis; K52.9 Noninfective gastroenteritis and colitis, unspecified; I71.40 Abdominal aortic aneurysm, without rupture, unspecified; Z79.82 Long term (current) use of aspirin; Z79.899 Other long term (current) drug therapy; Z68.36 Body mass index [BMI] 36.0-36.9, adult
CPT/HCPCS: 36415; 74018; 74177; 80048; 80053; 82040; 83690; 83735; 84100; 85025; 86850; 86900; 86901; 93005; 94668; 96361; 96365; 96366; 96375; 99221; 99283; Q9967; A4216; G0378; J2405

== ENCOUNTER → 2024-12-24 | Outpatient (CLI) | payer OTHER, SELFPAY ==
--- NOTE | 2024-12-24 12:28 | CT_ITS ---
PROCEDURE: LIMITED CHEST CT CARDIAC ONLY 12/24/2024 REASON FOR EXAM: FAM HX OF CAD TECHNIQUE: LIMITED CHEST CT CARDIAC ONLY CONTRAST: None One or more dose reduction techniques were used (e.g., Automated exposure control, adjustment of the mA and/or kV according to patient size, use of iterative reconstruction technique). RADIATION DOSE SUMMARY: CTDlvol: 16.58 mGy DLP: 8.29 mGycm COMPARISON: None FINDINGS: Small benign-appearing mediastinal lymph nodes. Coronary artery calcification. The heart is nonenlarged. The lungs are clear. CT/Limited Chest CT Cardiac Only IMPRESSION: Coronary artery calcification. Reading Location: [id number]
[2024-12-24 12:47] VITALS: BP 156/86; PULSE 67; RESP 16; TEMP 36.4; O2SAT 99; BMI 37.0
[2024-12-24 13:02] VITALS: BP 156/86; PULSE 72
[2024-12-24] MEDS: Nitroglycerin SL (ED/IMG/CATH) 0.4 MG TABLET SL (13:02)
[2024-12-24 13:11] VITALS: BP 111/68; PULSE 69; RESP 16; O2SAT 95
--- NOTE | 2024-12-25 15:34 | CCTA_ITS ---
CCTA w/Cont Coronary Arteries Date of Study:: 12/25/24 Coronary Calcium Scoring: High-resolution Computed Tomographic imaging of the chest was performed on [ ], with particular attention paid to the coronary arteries. Intravenous contrast agent was administered per protocol and images rec onstructed and displayed. LEFT MAIN CORONARY ARTERY: The left main coronary artery arises from the left coronary cusp and has mild calcification noted [] LEFT ANTERIOR DESCENDING CORONARY ARTERY: The left anterior descending artery has proximal calcification eccentric noted encroaching approximately 40% of the lumen the mid and distal left anterior descending artery appears to be free of significant disease [] LEFT CIRCUMFLEX CORONARY ARTERY: Dominant circumflex artery with focal proximal calcification and no significant stenosis noted [] RIGHT CORONARY ARTERY: Nondominant right coronary artery with focal mid segment calcification with no evidence of stenosis present [] THORACIC AORTA: [] PULMONARY ARTERY: [] LEFT ATRIUM/APPENDAGE: [] MITRAL VALVE: [] AORTIC VALVE: [] LEFT VENTRICLE: [] CORONARY CALCIUM SCORE: 409 [] Findings Coronary Artery Left Main (LM): 161 Left Anterior Descending (LAD): 174 Left Circumflex (LCX): 62.8 Right Coronary Artery (RCA): 11.9 Total Agatston Score: 409.7 Percentile Rankin%-90% Calcium Scoring Interpretation: Different methods to categorize the overall amount of coronary plaque. Overall amount CAC SIS Visual of coronary plaque P1 Mild -100 <2 1-2 vessels with mild amount of plaque P2 Moderate 101-300 3-4 1-2 vessels with moderate amount, 3 vessels with mild amount of plaque P3 Severe 301-999 5-7 3 vessels with moderate amount, 1 vessel with severe amount of plaque P4 Extensive >1000 >8 2-3 vessels with severe amount of plaque Calcium Score: Severe: 3 vessels w/moderate amount, 1 vessel w/severe amt of plaque Conclusion: Moderate amount of plaque noted in 3 vessels.
== END | disposition home or self-care (01) ==
LOC: CT 12:27
PROVIDERS: PCP Nurse Practitioner Family; Referring Provider Nurse Practitioner Gerontology; Visit Provider Nurse Practitioner Gerontology
DX: I25.10 Atherosclerotic heart disease of native coronary artery without angina pectoris (principal); Z82.49 Family history of ischemic heart disease and other diseases of the circulatory system
CPT/HCPCS: 75571; 75574; 76380; Q9967